=== PATIENT | male | born 1950 | race Caucasian/White ===

== ENCOUNTER 2021-12-06 10:47 | Inpatient (IN) ==
[2021-12-06] MEDS ORDERED: SODIUM CHLORIDE 0.9% 500 ML IV STA (11:32)
[2021-12-06] MEDS ORDERED: ONDANSETRON INJ 2 MG/ML 2 ML VIAL IV STA (11:32)
[2021-12-06] MEDS ORDERED: MoRPHine SULFATE 4 MG/ML 1 ML CARP\\VIAL IV STA (11:32)
--- NOTE | 2021-12-06 12:18 | Emergency Department Note ---
Impression & Plan Irene-prosthetic fracture around prosthetic hip, Post-operative pain ED Provider Note NAME: BUTCH HOOK AGE: 70 SEX: M : 1950 ARRIVES VIA: Walk-In INFORMANT: Patient, ED PROVIDER(S): Bimal Holley DO CHIEF COMPLAINT: Hip pain HPI: The patient is a 70-year-old male who presented to the emergency department for an evaluation of hip pain. The patient states that he had recent hip surgery with Dr. Eldridge. The patient had a hip replacement. He started noticing that he was having severe pain with any movement of the left hip over the last few days. He was seen by the primary orthopedic surgeon and was placed on steroids. He denies having any trauma. He denies having any fever or swelling in the leg. He notices the pain mostly in the posterior aspect of his left buttocks. He called the orthopedic surgeon today and was instructed to go to the emergency department for a CT. The patient denies having any back pain. The patient denies having any abdominal pain. The patient denies having any worsening swelling in the legs or redness. ROS: See above HPI for pertinent positives & negatives. A total of 10 systems reviewed and were otherwise negative. PAST MEDICAL HISTORY: See Below PAST SURGICAL HISTORY: See Below FAMILY HISTORY: See Below SOCIAL HISTORY: See Below HOME MEDICATIONS: See Below ALLERGIES: See Below VITALS: See Below PHYSICAL EXAMINATION: GENERAL: Patient is awake alert in no acute distress patient is resting comfortably and showing no signs of anxiety EYES: The conjunctivae are clear. The pupils are round and reactive. EARS, NOSE, MOUTH AND THROAT: The nose is without any evidence of any deformity. Mucous membranes are moist. Tongue is midline. NECK: The neck is nontender and supple. RESPIRATORY: Normal respiratory effort is noted there is no evidence of wheezing rhonchi or rales CARDIOVASCULAR: Regular rate and rhythm noted there no murmurs rubs or gallops normal S1 normal S2. GASTROINTESTINAL: The abdomen is soft. Abdomen is nontender. BACK: No midline tenderness or or step-off noted range of motion in flexion extension as well as rotation no signs of muscle spasm noted MUSCULOSKELETAL/EXTREMITIES: The patient is able to rotate the left hip inside and outside. There is no significant pain with this. He does have pain with flexion of the hip. He also has pain with palpation over the left sciatic notch. SKIN: Pedal edema was noted bilaterally. There was no erythema in the left leg. Pulses are symmetric in both feet. NEUROLOGIC: Patient is awake alert and oriented x3 MEDICAL DECISION MAKING: The patient is a 70-year-old male who presented to the emergency department for an evaluation of hip pain. The patient started noticing hip pain postoperatively. He was seen at the office and referred to the emergency department for further evaluation. I discussed the patient's laboratory and radiographic studies with him. He was evaluated in the emergency department by his primary orthopedic surgeon. He was found to have a periprosthetic fracture which was likely the cause of his pain. I do not feel this represents an underlying infection. He was felt to be a good candidate for inpatient and was admitted by his primary orthopedic physician. Triage Nursing notes reviewed. Prior medical records reviewed Vital Signs: reviewed and remarkable for no significant abnormalities Differential diagnosis: Fracture, subluxation, dislocation, contusion, ligamentous injury, neuro vascular, compartment syndrome, rhabdomyolysis, as well as other pathologies. ER treatment provided: See below Diagnostics interpreted by me: ECG: none Cardiac Monitoring: An order was placed for continuous cardiac monitoring. The monitor shows a rate of 70 bpm with sinus rhythm. Laboratory studies: As stated above and show below. Imaging studies: See below Consultation(s): I discussed this case with Dr. Eldridge who is the patient's primary orthopedic physician. 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, thoracic aorta"- follows only with PCP Surgical History History of back surgery LUMBAR DISCECTOMY "NOT A FUSION" History of total hip arthroplasty RT>PT STATED WAS DONE UNDER GENERAL>ANESTHESIA COULD NOT DO SPINAL "TRIED 4 OR 5 TIMES" Hx of carpal tunnel repair RT/LEFT Hx of colonoscopy Hx of knee surgery Meniscus sx Hx of shoulder surgery RT/LEFT Hx of total shoulder replacement RT Hx of umbilical hernia repair Nausea and vomiting after administration of anesthetic agent Remote hx>WITH BACK SURGERY Family History Other No family history of adverse response to anesthesia Social History Smoking Status: Former smoker Tobacco Type: Cigars Second Hand Exposure: No; Hx Alcohol Use: No Hx Substance Use: No Preferred Language: Taiwanese Communication Ability: Effective Script Manager Required: No Beliefs That Will Affect Care: None Current Living Situation: Spouse Other Information That Helps Us Care for You: No Feels Safe at Home: Yes Safety Concerns: Feels Safe At This Time Assistive Devices: Walker Allergies Allergies Allergy/AdvReac Type Severity Reaction Status Date / Time No Known Allergies Allergy Verified 12/06/21 14:59 Home Meds Home Medications Medication Instructions Recorded Confirmed cholecalciferol (vitamin D3) 50 50 mcg PO QAM 06/27/21 12/06/21 mcg (2,000 unit) capsule diltiazem HCl 360 mg 360 mg PO QPM 06/27/21 12/06/21 capsule,extended release 24 hr multivit with min-folic 1 tab PO QAM 06/27/21 12/06/21 acid-lutein 400 mcg-250 mcg chewable tablet (Centrum Silver) sildenafil 100 mg tablet 100 mg PO DAILY PRN impotence 06/27/21 12/06/21 valsartan 160 1 tab PO QAM 06/27/21 12/06/21 mg-hydrochlorothiazide 25 mg tablet clobetasol 0.05 % scalp solution 1 applic topical Q7D PRN psoriasis 09/14/21 12/06/21 clobetasol 0.05 % shampoo (Clobex) 1 applic topical QAM PRN psoriasis 09/14/21 12/06/21 vitamin B complex 1 tab PO QAM 09/14/21 12/06/21 wheat dextrin 3 gram/3.5 gram oral 1 packet PO QAM 09/14/21 12/06/21 powder packet (Benefiber Clear Sugar Free(dextrin)) Previous Rx's Medication Instructions Recorded aspirin 81 mg tablet,delayed 81 mg PO BID #84 tabs 11/15/21 release oxycodone-acetaminophen 5 mg-325 1 tab PO Q6H PRN pain #30 tabs 11/15/21 mg tablet (Percocet) methylprednisolone 4 mg tablets in 4 mg PO UD #1 packet 12/04/21 a dose pack Results & Data (ED) Vital Signs Vital Signs - 24 hr 12/06/21 10:51 12/06/21 14:36 Temperature 36.2 C L Temperature Source Temporal Artery Scan Pulse Rate 78 Pulse Rate [Left] 90 Pulse Rhythm [Left] Regular Pulse Strength [Left] Normal Respiratory Rate 20 19 Respiratory Effort / Characteristics Non-Labored Non-Labored Respiratory Depth Normal Normal Respiratory Pattern Regular Regular Blood Pressure 125/80 Blood Pressure [Left Arm] 136/98 Blood Pressure Mean 95 Blood Pressure Mean [Left Arm] 110 Blood Pressure Position [Left Arm] Lying Pulse Oximetry 96 98 Oxygen Delivery Method Room Air Room Air Sepsis Recent Fever Within 48 Hours No Sepsis New/Unexplained Change in Mental Status N/A Sepsis Action Taken by Nursing No Action Required Home Medications Current Medication List: was personally reviewed by me Laboratory Data Attestation: I reviewed the patient's lab results. Result diagrams: 12/06/21 12:08 12/06/21 12:08 Lab Results 12/06/21 12/06/21 12/06/21 Range/Units 12:08 12:08 12:08 WBC 13.51 H (4.8-10.8) K/ul RBC 4.70 (4.63-6.08) M/uL Hgb 14.3 (14.0-18.0) g/dl Hct 41.5 (40.1-51.0) % MCV 88.3 (80.0-100.0) fL MCH 30.4 (25.0-34.0) pg MCHC 34.5 (32.0-36.0) g/dL RDW Std Deviation 42.5 (36.4-46.3) fL RDW Coeff of Marquise 13.2 (11.5-14.5) % Plt Count 378 (130-400) K/uL MPV 9.3 L (9.4-12.4) fL Immature Gran % (Auto) 0.5 % Neut % (Auto) 88.8 % Lymph % (Auto) 6.5 % Tyler % (Auto) 4.1 % Eos % (Auto) 0.0 % Baso % (Auto) 0.1 % Neut # (Auto) 11.99 H (1.4-6.5) K/uL Lymph # (Auto) 0.88 L (1.2-3.4) K/uL Tyler # (Auto) 0.55 (0.24-0.82) K/uL Eos # (Auto) 0.00 (0-0.50) K/uL Baso # (Auto) 0.02 (0-0.2) K/uL Immature Gran # (Auto) 0.07 H (0.00-0.02) K/uL ESR 23 H (0-20) mm/hr PT 11.7 (9.0-12.0) Seconds INR 1.1 (0.9-1.1) APTT 27.1 (21.0-31.0) Seconds PTT Ratio 1.0 Sodium (136-145) mmol/L Potassium (3.5-5.1) mmol/L Chloride (98-107) mmol/L Carbon Dioxide (21-32) mmol/L Anion Gap (3-11) BUN (6-23) mg/dl Creatinine (0.6-1.4) mg/dl Est Cr Clr Drug Dosing Est GFR ( Amer) ml/min Est GFR (Non-Af Amer) ml/min BUN/Creatinine Ratio (10-20) Glucose (70-99(Fasting)) mg/dl Lactate (0.4-2.0) mmol/L Calcium (8.5-10.1) mg/dl Total Bilirubin (0.2-1.0) mg/dl AST (13-39) U/L ALT (7-52) U/L Alkaline Phosphatase (34-104) U/L C-Reactive Protein (0-0.5) mg/dl Total Protein (6.0-8.3) gm/dl Albumin (3.4-5.0) gm/dl Globulin (2.5-4.0) gm/dl Albumin/Globulin Ratio (0.9-2) Lipase (11-82) U/L Procalcitonin (0-0.5) ng/ml SARS-CoV-2, RNA, NAAT (NEGATIVE) 12/06/21 12/06/21 12/06/21 Range/Units 12:08 12:08 12:37 WBC (4.8-10.8) K/ul RBC (4.63-6.08) M/uL Hgb (14.0-18.0) g/dl Hct (40.1-51.0) % MCV (80.0-100.0) fL MCH (25.0-34.0) pg MCHC (32.0-36.0) g/dL RDW Std Deviation (36.4-46.3) fL RDW Coeff of Marquise (11.5-14.5) % Plt Count (130-400) K/uL MPV (9.4-12.4) fL Immature Gran % (Auto) % Neut % (Auto) % Lymph % (Auto) % Tyler % (Auto) % Eos % (Auto) % Baso % (Auto) % Neut # (Auto) (1.4-6.5) K/uL Lymph # (Auto) (1.2-3.4) K/uL Tyler # (Auto) (0.24-0.82) K/uL Eos # (Auto) (0-0.50) K/uL Baso # (Auto) (0-0.2) K/uL Immature Gran # (Auto) (0.00-0.02) K/uL ESR (0-20) mm/hr PT (9.0-12.0) Seconds INR (0.9-1.1) APTT (21.0-31.0) Seconds PTT Ratio Sodium 137 (136-145) mmol/L Potassium 4.0 (3.5-5.1) mmol/L Chloride 100 (98-107) mmol/L Carbon Dioxide 27 (21-32) mmol/L Anion Gap 10 (3-11) BUN 34 H (6-23) mg/dl Creatinine 1.27 (0.6-1.4) mg/dl Est Cr Clr Drug Dosing Not Reportable Est GFR ( Amer) 65.9 ml/min Est GFR (Non-Af Amer) 56.9 ml/min BUN/Creatinine Ratio 26.8 H (10-20) Glucose 109 H (70-99(Fasting)) mg/dl Lactate 1.4 (0.4-2.0) mmol/L Calcium 9.7 (8.5-10.1) mg/dl Total Bilirubin 1.1 H (0.2-1.0) mg/dl AST 13 (13-39) U/L ALT 13 (7-52) U/L Alkaline Phosphatase 119 H (34-104) U/L C-Reactive Protein 0.75 H (0-0.5) mg/dl Total Protein 7.1 (6.0-8.3) gm/dl Albumin 4.2 (3.4-5.0) gm/dl Globulin 2.9 (2.5-4.0) gm/dl Albumin/Globulin Ratio 1.4 (0.9-2) Lipase 8 L (11-82) U/L Procalcitonin < 0.05 (0-0.5) ng/ml SARS-CoV-2, RNA, NAAT (NEGATIVE) 12/06/21 Range/Units 14:31 WBC (4.8-10.8) K/ul RBC (4.63-6.08) M/uL Hgb (14.0-18.0) g/dl Hct (40.1-51.0) % MCV (80.0-100.0) fL MCH (25.0-34.0) pg MCHC (32.0-36.0) g/dL RDW Std Deviation (36.4-46.3) fL RDW Coeff of Marquise (11.5-14.5) % Plt Count (130-400) K/uL MPV (9.4-12.4) fL Immature Gran % (Auto) % Neut % (Auto) % Lymph % (Auto) % Tyler % (Auto) % Eos % (Auto) % Baso % (Auto) % Neut # (Auto) (1.4-6.5) K/uL Lymph # (Auto) (1.2-3.4) K/uL Tyler # (Auto) (0.24-0.82) K/uL Eos # (Auto) (0-0.50) K/uL Baso # (Auto) (0-0.2) K/uL Immature Gran # (Auto) (0.00-0.02) K/uL ESR (0-20) mm/hr PT (9.0-12.0) Seconds INR (0.9-1.1) APTT (21.0-31.0) Seconds PTT Ratio Sodium (136-145) mmol/L Potassium (3.5-5.1) mmol/L Chloride (98-107) mmol/L Carbon Dioxide (21-32) mmol/L Anion Gap (3-11) BUN (6-23) mg/dl Creatinine (0.6-1.4) mg/dl Est Cr Clr Drug Dosing Est GFR ( Amer) ml/min Est GFR (Non-Af Amer) ml/min BUN/Creatinine Ratio (10-20) Glucose (70-99(Fasting)) mg/dl Lactate (0.4-2.0) mmol/L Calcium (8.5-10.1) mg/dl Total Bilirubin (0.2-1.0) mg/dl AST (13-39) U/L ALT (7-52) U/L Alkaline Phosphatase (34-104) U/L C-Reactive Protein (0-0.5) mg/dl Total Protein (6.0-8.3) gm/dl Albumin (3.4-5.0) gm/dl Globulin (2.5-4.0) gm/dl Albumin/Globulin Ratio (0.9-2) Lipase (11-82) U/L Procalcitonin (0-0.5) ng/ml SARS-CoV-2, RNA, NAAT NEGATIVE (NEGATIVE) Administered Medications Hydromorphone HCl (Hydromorphone Inj 1 Mg/Ml Syringe) 1 mg IV Q6H PRN PRN Reason: Pain Stop: 12/20/21 16:15 Last Admin: 12/06/21 16:30 Dose: 1 mg Documented By: [id number] Sodium Chloride (Nss 1000ml) 1,000 mls @ 80 mls/hr IV .[id number] Stop: 01/05/22 16:15 Last Admin: 12/06/21 16:52 Dose: 80 mls/hr Documented By: [id number] Discontinued Medications Sodium Chloride (Nss) 500 mls @ 999 mls/hr IV .Q31M STA Stop: 12/06/21 12:02 Last Infusion: 12/06/21 14:14 Dose: 0 mls/hr Documented By: Admin: 12/06/21 12:03 Dose: 999 mls/hr Documented By: NH Ioversol (Ioversol 350 Mg 100ml Prefilled Syringe) 95 ml IV ONCE ONE Stop: 12/06/21 14:11 Last Admin: 12/06/21 14:10 Dose: 95 ml Documented By: [email or web address] Morphine Sulfate (Morphine Sulfate 4 Mg/Ml 1 Ml Carp\\Vial) 4 mg IV NOW STA Stop: 12/06/21 11:33 Last Admin: 12/06/21 12:05 Dose: 4 mg Documented By: AUBREE Ondansetron HCl (Ondansetron Inj 2 Mg/Ml 2 Ml Vial) 4 mg IV NOW STA Stop: 12/06/21 11:33 Last Admin: 12/06/21 12:05 Dose: 4 mg Documented By: AUBREE Imaging Data Radiologist's Impression: Hip CT 12/06/21 11:32 CT hip LT wo/w con CLINICAL HISTORY: Severe left hip pain. Recent left hip arthroplasty. COMPARISON STUDY: Left hip radiographs November 16, 2021. TECHNIQUE: Axial images of the left hip were obtained before and after i ntravenous administration of 95 cc of Optiray 320 IV. Sagittal and coronal reconstructions were viewed. Automated exposure control was utilized for the study. A dose lowering technique was utilized adhering to the principles of ALARA. FINDINGS: Left hip arthroplasty is noted. Note is made of an acute nondisplaced periprosthetic fracture which involves the posterior wall of the left acetabulum. In addition, there is an acute comminuted nondisplaced periprosthetic fracture adjacent to the femoral component of the left hip arthroplasty. This extends through the greater and lesser trochanters. Fracture extends into the subtrochanteric portion of the left femur. There is no unexpected radiopaque foreign bodies. Skin thickening and subcutaneous fluid/stranding are expected in the early postoperative setting. A 5.3 x 5.2 cm operative bed fluid collection contains a hematocrit level. This suggests a resolving hematoma. No additional fluid collections are identified. IMPRESSION: 1. Status post total left hip arthroplasty. Nondisplaced periprosthetic fracture of the posterior wall of the left acetabulum and nondisplaced periprosthetic fracture adjacent to the femoral component, as described above. 2. 5.3 x 5.2 cm operative bed fluid collection which favors a resolving hematoma. ACT 112: Negative or not required by law. Electronically signed by: Abdi Lopez M.D. 12/06/2021 3:00 PM Discharge Plan Visit Data Chief Complaint: Hip Pain Stated Complaint: SURGERY 11/16, PAIN IN L HIP ED Provider: Bimal Holley Discharge Problem: Irene-prosthetic fracture around prosthetic hip, Post-operative pain Patient Disposition: Admitted As Inpatient Discharge Instructions Interventions: ED Discharge Assessment Last Done: 12/06/21 16:13 : Irene-prosthetic fracture around prosthetic hip Qualifiers: Encounter type: initial encounter Qualified Code(s): M97.8XXA - Periprosthetic fracture around other internal prosthetic joint, initial encounter
[2021-12-06 12:25] LABS: Basophils # (auto) 0.02 K/uL (0-0.2); Basophils % (auto) 0.1 %; Hematocrit (blood only) 41.5 % (40.1-51.0); Hemoglobin 14.3 g/dl (14.0-18.0); Immature Granulocytes # (auto) 0.07 K/uL (0.00-0.02); Immature Granulocytes % (auto) 0.5 %; Lymphocytes # (auto) 0.88 K/uL (1.2-3.4); Lymphocytes % (auto) 6.5 %; Mean Corpuscular Hemoglobin 30.4 pg (25.0-34.0); Mean Corpuscular Hgb Conc 34.5 g/dL (32.0-36.0); Mean Corpuscular Volume 88.3 fL (80.0-100.0); Mean Platelet Volume 9.3 fL (9.4-12.4); Monocytes # (auto) 0.55 K/uL (0.24-0.82); Monocytes % (auto) 4.1 %; Neutrophils # (auto) 11.99 K/uL (1.4-6.5); Neutrophils % (auto) 88.8 %; Platelet Count 378 K/uL (130-400); RDW Coefficient of Variation 13.2 % (11.5-14.5); RDW Standard Deviation 42.5 fL (36.4-46.3); White Blood Count 13.51 K/ul (4.8-10.8)
[2021-12-06 12:49] LABS: INR 1.1 (0.9-1.1); Partial Thromboplastin Time 27.1 Seconds (21.0-31.0); Prothrombin Time 11.7 Seconds (9.0-12.0)
[2021-12-06 12:56] LABS: Alanine Aminotransferase 13 U/L (7-52); Albumin Globulin Ratio 1.4 (0.9-2); Albumin Level 4.2 gm/dl (3.4-5.0); Alkaline Phosphatase 119 U/L (34-104); Anion Gap 10 (3-11); Aspartate Aminotransferase 13 U/L (13-39); BUN Creatinine Ratio 26.8 (10-20); Bilirubin,Total 1.1 mg/dl (0.2-1.0); Blood Urea Nitrogen 34 mg/dl (6-23); C Reactive Protein 0.75 mg/dl (0-0.5); Calcium 9.7 mg/dl (8.5-10.1); Carbon Dioxide 27 mmol/L (21-32); Chloride 100 mmol/L (98-107); Est GFR (African American) 65.9 ml/min; Est GFR (Non-African American) 56.9 ml/min; Globulin 2.9 gm/dl (2.5-4.0); Glucose 109 mg/dl (70-99(Fasting)); Lipase 8 U/L (11-82); Sodium 137 mmol/L (136-145); Total Protein 7.1 gm/dl (6.0-8.3)
[2021-12-06] MEDS ORDERED: IOVERSOL 350 MG 100mL Prefilled Syringe IV ONE (14:10)
--- NOTE | 2021-12-06 15:00 | History & Physical Report ---
Date of Service December 06, 2021 Assessment & Plan (1) Periprosthetic hip fracture: I discussed the diagnosis and treatment options with him and his at bedside. I recommended take him to the operating room for cable fixation and stem exchange of the left hip. He and his understand the risk, benefits, and alternatives procedure elected to proceed. Questions were answered at bedside. The decision was made for surgery. We will admit him to my service overnight. He will be n.p.o. past midnight tonight and I plan on doing the procedure tomorrow afternoon. History of Present Illness Chief Complaint: Left periprosthetic hip fracture. Primary Care Provider: Brigette North PA-C Jong is a pleasant 70-year-old male who underwent a left hip replacement 3 weeks ago. He did great for a week and a half. He was having no pain. He then rolled over awkwardly in bed and began having significant left hip pain. He came to our office. X-rays did not show too much. The stent may have subsided just a little bit. He was continued to have a lot of hip pain. He came to the emergency room and CT scan showed a small crack near the lesser trochanter. He was still having a lot of hip pain. I spoke with him and his at bedside and I recommended admission to the hospital for operative fixation and stent exchange of the left periprosthetic fracture.. Allergies Allergy/AdvReac Type Severity Reaction Status Date / Time No Known Allergies Allergy Verified 12/06/21 14:59 Home Medications Medication Instructions Recorded Confirmed Type cholecalciferol (vitamin D3) 50 50 mcg PO QAM 06/27/21 11/16/21 History mcg (2,000 unit) capsule diltiazem HCl 360 mg 360 mg PO QPM 06/27/21 11/16/21 History capsule,extended release 24 hr multivit with min-folic 1 tab PO QAM 06/27/21 11/16/21 History acid-lutein 400 mcg-250 mcg chewable tablet (Centrum Silver) sildenafil 100 mg tablet 100 mg PO DAILY PRN impotence 06/27/21 11/16/21 History valsartan 160 1 tab PO QAM 06/27/21 11/16/21 History mg-hydrochlorothiazide 25 mg tablet clobetasol 0.05 % scalp solution 1 applic topical Q7D PRN psoriasis 09/14/21 11/12/21 History clobetasol 0.05 % shampoo (Clobex) 1 applic topical QAM PRN psoriasis 09/14/21 11/12/21 History vitamin B complex 1 tab PO QAM 09/14/21 11/16/21 History wheat dextrin 3 gram/3.5 gram oral 1 packet PO QAM 09/14/21 11/16/21 History powder packet (Benefiber Clear Sugar Free(dextrin)) aspirin 81 mg tablet,delayed 81 mg PO BID #84 tabs 11/15/21 Rx release celecoxib 200 mg capsule (Celebrex) 200 mg PO BID #28 caps 11/15/21 Rx oxycodone-acetaminophen 5 mg-325 1 tab PO Q6H PRN pain #30 tabs 11/15/21 Rx mg tablet (Percocet) oxycodone-acetaminophen 5 mg-325 1 tab PO Q6H PRN pain #30 tabs 11/27/21 Rx mg tablet (Percocet) methylprednisolone 4 mg tablets in 4 mg PO UD #1 packet 12/04/21 12/04/21 Rx a dose pack 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, thoracic aorta"- follows only with PCP Surgical History History of back surgery LUMBAR DISCECTOMY "NOT A FUSION" History of total hip arthroplasty RT>PT STATED WAS DONE UNDER GENERAL>ANESTHESIA COULD NOT DO SPINAL "TRIED 4 OR 5 TIMES" Hx of carpal tunnel repair RT/LEFT Hx of colonoscopy Hx of knee surgery Meniscus sx Hx of shoulder surgery RT/LEFT Hx of total shoulder replacement RT Hx of umbilical hernia repair Nausea and vomiting after administration of anesthetic agent Remote hx>WITH BACK SURGERY Family History Other No family history of adverse response to anesthesia Social History Smoking Status: Former smoker Tobacco Type: Cigars Second Hand Exposure: No; Hx Alcohol Use: No Hx Substance Use: No Preferred Language: Namibian Communication Ability: Effective Turbine Engineer Required: No Beliefs That Will Affect Care: None Current Living Situation: Spouse Feels Safe at Home: Yes Assistive Devices: CPAP and Glasses Review of Systems All systems reviewed & are unremarkable except as noted in HPI & below. Physical Exam On physical examination of his left hip, he is very comfortable in a wheelchair. He does not want to get up to a bed. He has pain with logroll of his left hip.. Constitutional WD/WN, vitals as above Eyes PERRL, conjunctivae normal, anicteric sclerae ENMT external ear and nose normal, oropharynx normal Neck trachea midline, no thyromegaly Respiratory normal respiratory effort, lungs clear to auscultation Cardiovascular RRR, no murmur, no edema Gastrointestinal (Abdomen) normal bowel sounds, soft, nontender, no hepatosplenomegaly Skin no rashes, warm and dry Psychiatric A+Ox3, euthymic affect Results & Data Results & Data Laboratory Results . Diagnostic Findings CT scan of the left hip shows a periprosthetic proximal femur fracture. There is a small crack in the proximal femur near the lesser trochanter which some subsidence of the femoral prosthesis. The also a small crack at the greater trochanter and a periacetabular stress fracture.. PG Care Time/CCT Total # of Minutes Spent Total Time Spent with Patient: Total time spent is greater than 50% in coordination of care (as documented) at patient's floor/unit and/or counseling patient: Coding Level of Care Code 92679 Initial Inpt Care Lvl 2 (57 - DECISION FOR SURGERY) Diagnoses Periprosthetic hip fracture M97.8XXA; Z96.649
--- NOTE | 2021-12-06 15:01 | CT Scan Report ---
CT hip LT wo/w con CLINICAL HISTORY: Severe left hip pain. Recent left hip arthroplasty. COMPARISON STUDY: Left hip radiographs November 16, 2021. TECHNIQUE: Axial images of the left hip were obtained before and after intravenous administration of 95 cc of Optiray 320 IV. Sagittal and coronal reconstructions were viewed. Automated exposure control was utilized for the study. A dose lowering technique was utilized adhering to the principles of AL BRANDON. FINDINGS: Left hip arthroplasty is noted. Note is made of an acute nondisplaced periprosthetic fractu re which involves the posterior wall of the left acetabulum. In addition, there is an acute comminute d nondisplaced periprosthetic fracture adjacent to the femoral component of the left hip arthroplasty . This extends through the greater and lesser trochanters. Fracture extends into the subtrochanteric portion of the left femur. There is no unexpected radiopaque foreign bodies. Skin thickening and subc utaneous fluid/stranding are expected in the early postoperative setting. A 5.3 x 5.2 cm operative be d fluid collection contains a hematocrit level. This suggests a resolving hematoma. No additional flu id collections are identified. IMPRESSION: 1. Status post total left hip arthroplasty. Nondisplaced periprosthetic fracture of the posterior wal l of the left acetabulum and nondisplaced periprosthetic fracture adjacent to the femoral component, as described above. 2. 5.3 x 5.2 cm operative bed fluid collection which favors a resolving hematoma. ACT 112: Negative or not required by law. Electronically signed by: Abdi Lopez M.D. 12/06/2021 3:00 PM
[2021-12-06] MEDS ORDERED: ONDANSETRON INJ 2 MG/ML 2 ML VIAL IV PRN (16:16)
[2021-12-06] MEDS: HYDROmorphone INJ 1 MG/ML SYRINGE IV PRN ×2 (16:30→22:37)
[2021-12-06] MEDS ORDERED: INFLUENZA VACCINE HIGH DOSE PF 65+ 0.7 ML SYR IM ONE (16:40)
[2021-12-06] MEDS: SODIUM CHLORIDE 0.9% 1000ML 1,000 ML IV SCH (16:52)
[2021-12-06] MEDS: dilTIAZem ER 180 MG CAPCR PO SCH (20:02)
--- NOTE | 2021-12-06 20:29 | Anesthesiology Consultation ---
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 Surgery Operation Date: 12/07/21 07:55 Proposed Procedures p Cable and Stem Exchange, Left Hip Anterior Approach - Mynor Eldridge, Height/Weight Height: 5 ft 9 in Weight: 113.39 kg Allergies Allergy/AdvReac Type Severity Reaction Status Date / Time No Known Allergies Allergy Verified 12/06/21 14:59 Medications Home Medications Medication Instructions Recorded Confirmed Last Taken cholecalciferol (vitamin D3) 50 50 mcg PO QAM 06/27/21 12/06/21 12/06/21 mcg (2,000 unit) capsule diltiazem HCl 360 mg 360 mg PO QPM 06/27/21 12/06/21 12/05/21 capsule,extended release 24 hr multivit with min-folic 1 tab PO QAM 06/27/21 12/06/21 12/06/21 acid-lutein 400 mcg-250 mcg chewable tablet (Centrum Silver) sildenafil 100 mg tablet 100 mg PO DAILY PRN impotence 06/27/21 12/06/21 11/02/21 valsartan 160 1 tab PO QAM 06/27/21 12/06/21 12/06/21 mg-hydrochlorothiazide 25 mg tablet clobetasol 0.05 % scalp solution 1 applic topical Q7D PRN psoriasis 09/14/21 12/06/21 Unknown clobetasol 0.05 % shampoo (Clobex) 1 applic topical QAM PRN psoriasis 09/14/21 12/06/21 Unknown vitamin B complex 1 tab PO QAM 09/14/21 12/06/21 12/06/21 wheat dextrin 3 gram/3.5 gram oral 1 packet PO QAM 09/14/21 12/06/21 12/06/21 powder packet (Benefiber Clear Sugar Free(dextrin)) aspirin 81 mg tablet,delayed 81 mg PO BID #84 tabs 11/15/21 12/06/21 12/06/21 08:00 release oxycodone-acetaminophen 5 mg-325 1 tab PO Q6H PRN pain #30 tabs 11/15/21 12/06/21 Unknown mg tablet (Percocet) methylprednisolone 4 mg tablets in 4 mg PO UD #1 packet 12/04/21 12/06/21 12/06/21 a dose pack Active Medications Generic Name Dose Route Start Last Admin Trade Name Freq PRN Reason Stop Dose Admin Diltiazem HCl 360 mg 12/06/21 21:00 12/06/21 20:02 Diltiazem Er 180 Mg Capcr PO 01/05/22 20:59 360 mg QPM ZAMZAM Administration Hydromorphone HCl 1 mg 12/06/21 16:16 12/06/21 16:30 Hydromorphone Inj 1 Mg/Ml Syringe IV 12/20/21 16:15 1 mg Q6H PRN Administration Pain Sodium Chloride 1,000 mls @ 80 mls/hr 12/06/21 16:16 12/06/21 16:52 Nss 1000ml IV 01/05/22 16:15 80 mls/hr .[id number] Administration Past Medical History Medical History History of hemangioma Liver, stable x years- follows with PCP- no further imaging follow up needed due to stability per patient Hx of prostatic malignancy 11/2012 - S/p XRT No current issues Hx of psoriasis Hypertension Sleep apnea CPAP 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 "Mild, thoracic aorta"- follows only with PCP Past Family History Family History Other No family history of adverse response to anesthesia Past Surgical History Surgical History History of back surgery LUMBAR DISCECTOMY "NOT A FUSION" History of total hip arthroplasty RT>PT STATED WAS DONE UNDER GENERAL>ANESTHESIA COULD NOT DO SPINAL "TRIED 4 OR 5 TIMES" Hx of carpal tunnel repair RT/LEFT Hx of colonoscopy Hx of knee surgery Meniscus sx Hx of shoulder surgery RT/LEFT Hx of total shoulder replacement RT Hx of umbilical hernia repair Nausea and vomiting after administration of anesthetic agent Remote hx>WITH BACK SURGERY Social History Smoking Status: Former smoker tobacco type: cigars Hx Alcohol Use: No Hx Substance Use: No substance use type: does not use Physical Exam Vital Signs Last Vital Signs Temp 98.2 F 12/06/21 16:53 Pulse 70 12/06/21 16:53 Resp 18 12/06/21 16:53 BP 126/73 12/06/21 16:53 Pulse Ox 98 12/06/21 16:53 O2 Del Method 12/06/21 16:53 Testing Laboratory Results 12/06/21 12:08 12/06/21 12:08 PT 11.7 Seconds (9.0-12.0) 12/06/21 12:08 INR 1.1 (0.9-1.1) 12/06/21 12:08 APTT 27.1 Seconds (21.0-31.0) 12/06/21 12:08 Electrocardiogram Date: 09/26/21 Sinus rhythm with 1st degree A-V block, rate 65 bpm Left axis deviation Low voltage QRS Abnormal ECG No previous ECGs available Confirmed by Farhan Handley ([id number]) on 09/26/2021 11:04:12 AM Chest X-Ray Date: 09/26/21 Findings: + NAD
[2021-12-07] MEDS: SODIUM CHLORIDE 0.9% 1000ML 1,000 ML IV SCH ×3 (04:54→17:47)
--- NOTE | 2021-12-07 13:17 | History & Physical Bridge Note ---
Date of Service December 07, 2021 History & Physical Bridge Note I have examined the patient, reviewed the History & Physical and in the interval since the performance of the History & Physical I have noted the following changes of clinical significance: no changes noted
[2021-12-07] MEDS ORDERED: ONDANSETRON INJ 2 MG/ML 2 ML VIAL IV PRN (13:49)
[2021-12-07] MEDS ORDERED: ATROPINE SULFATE 0.1 MG/ML 10ML SYR IV PRN (13:49)
[2021-12-07] MEDS ORDERED: ePHEDrine sulfate 50 MG/ML AMP IV PRN (13:49)
[2021-12-07] MEDS ORDERED: fentaNYL citrate 100 MCG/2 ML VIAL IV PRN (13:49)
[2021-12-07] MEDS ORDERED: BUPIVACAINE 0.5 % 5 MG/1 ML PF 10ML VIAL ONE (14:04)
[2021-12-07] MEDS ORDERED: PROPOFOL IV EMULSION 10 MG/ML 20 ML VIAL IV ONE ×3 (14:06→15:55)
[2021-12-07] MEDS ORDERED: fentaNYL citrate 100 MCG/2 ML VIAL ONE (14:06)
[2021-12-07] MEDS ORDERED: MIDAZOLAM HCL 1 MG/ML 2ML VIAL ONE (14:06)
[2021-12-07] MEDS ORDERED: LIDOCAINE 2% MPF LOCAL 5 ML VIAL INFIL ONE (14:06)
[2021-12-07] MEDS: ceFAZolin 2000MG 2,000 MG/15 ML SYR IV SCH ×2 (14:23→22:46)
[2021-12-07] MEDS ORDERED: PHENYLEPHRINE HCL 10 MG/ML VIAL ONE (14:59)
[2021-12-07] MEDS ORDERED: ePHEDrine sulfate 50 MG/ML AMP ONE (14:59)
[2021-12-07] MEDS ORDERED: ONDANSETRON INJ 2 MG/ML 2 ML VIAL ONE (15:55)
--- NOTE | 2021-12-07 16:33 | Operative Report ---
PG Post Operative Report Pre & Post Diagnosis Operation Date: 12/07/21 07:55 Pre-Op Diagnosis: Periprosthetic left hip fracture. Post-Op Diagnosis: Periprosthetic left hip fracture. I identified the patient and participated in the time-out.: Yes Procedure Operation Date: 12/07/21 07:55 Actual Procedures p open reduction internal fixation left periprosthetic hip fracture with single component stem exchange (Left) - Mynor Eldridge DO Surgeon Mynor Eldridge DO Drying Machine Tender Mynor Rojas PA-C Estimated Blood Loss 200 Findings Consistent with Post-Op Diagnosis Specimens None Description of Procedure On December 07, 2021 Jong was brought down from his hospital room to the preoperative holding area. The operative extremity identified and signed. He was given a preoperative antibiotic. He was taken back the operating room and given a spinal anesthetic. He was then placed onto the operating table. The left hip was brought out to traction on a Purist leg positioner. The left hip was then prepped and draped in sterile fashion. A timeout was done. The patient and the operative extremity was properly identified. The previous anterior incision was opened back up. Dissection was taken down through the fascia and a large seroma was evacuated. The rectus was retracted anteriorly and the tensor was retracted laterally. The sutures from the previous capsular repair were removed and the femoral head was exposed. The entire wound was irrigated with normal saline solution. A single cable was placed just inferior to the lesser trochanter. This was to ensure there was no further propagation of the fracture. There was a single minimally displaced fracture on the anterior lateral cortex just lateral to the lesser trochanter. Once the hip was cabled, the hip was dislocated. The femoral head and femoral stem were removed. Sequential broaching of a Harman Biomet Advocate stem was done up to a size 14. A 40 mm head with a +3.5 neck was then trialed. The hip was then reduced. Fluoroscopic images showed anatomic alignment of the prosthesis. Everything felt stable. The hip was then dislocated. The broach was then removed. The final Harman Biomet size 13 Advocate stem was then cemented in place with Biomet cement. Once cement had hardened a 40 mm head with a +3.5 neck was then impacted into place. The hip was then reduced. Final fluoroscopic images showed anatomic reduction of the fracture. The wound was then irrigated. The acetabulum was then stressed and there was no motion of the acetabulum. The acetabulum seems stable. The capsule was then closed with #1 Vicryl suture. The fascia was closed with PDS suture. Skin was closed with 2-0 Vicryl and pinky. He was placed in a Silverlon dressing. He was then transferred to a hospital bed and taken to the postanesthesia care unit in stable condition. He tolerated the procedure well. Mynor Rojas PA-C, was present for the entire procedure. He was critical for patient positioning, prepping, draping, retraction exposure, wound closure and application of sterile dressing. I attest to the content of the Intraoperative Record and any orders documented therein. Any exceptions are noted below.
--- NOTE | 2021-12-07 16:39 | Fluoroscopy Report ---
FL hip LT 1V CLINICAL HISTORY: LT ANTERIOR HIP REVISION TECHNIQUE: 3 views were obtained with the C-arm in the OR with the above procedure. Total fluoroscopy time was 5 seconds. Comparison: None available at the time of this dictation. FINDINGS/IMPRESSION: Intraoperative images were obtained of left hip arthroplasty revision. Please correlate with intraoperative fluoroscopy and operative report. ACT 112: Negative or not required by law. Electronically signed by: Daniel Rucker M.D. 12/07/2021 4:37 PM
--- NOTE | 2021-12-07 17:12 | Anesthesiology Progress Note ---
Date of Service December 07, 2021 Anesthesia Post Procedure Vital Signs Vital Signs: Temp Pulse Resp BP Pulse Ox Pulse Ox O2 Del Method 12/07/21 17:00 59 L 18 116/69 94 Oxymask 12/07/21 16:50 63 15 116/77 97 Oxymask 12/07/21 16:43 36.7 C 66 20 110/76 96 Oxymask 12/07/21 12:32 37.3 C 65 18 111/70 97 Room Air 12/07/21 07:35 37.1 C 65 17 112/65 96 Room Air 12/06/21 22:17 36.5 C 74 18 134/74 95 Room Air 12/06/21 20:02 98 12/06/21 20:02 Room Air O2 Del Method O2 Flow Rate 12/07/21 17:00 2 12/07/21 16:50 3 12/07/21 16:43 5 12/07/21 12:32 12/07/21 07:35 12/06/21 22:17 12/06/21 20:02 Room Air 12/06/21 20:02 Pain Intensity Left Hip: Pain Intensity: 0 Transfer of Care Handoff Completed per policy Notes Mental Status: alert / awake / arousable and participated in evaluation Patient Amnestic to Procedure: Yes Nausea / Vomiting: adequately controlled Pain: adequately controlled Airway Patency, RR, SpO2: stable & adequate BP & HR: stable & adequate Hydration State: stable & adequate Anesthetic Complications: no major complications apparent and Pt Satisfied with anesthetic care
--- NOTE | 2021-12-07 17:16 | XRay Report ---
XR hip 1V LT w pelvis CLINICAL HISTORY: IN PACU - Post Surgical COMPARISON STUDY: Left hip CT 12/06/2021. FINDINGS: There are bilateral total hip arthroplasties again noted. Interval placement of a cerclage wire within the proximal left femur. The hardware appears intact. The nondisplaced femoral periprosth etic fracture is better appreciated on the prior CT examination. Left hip skin pinky are again note d. No dislocation. The left greater trochanter fracture is again noted. Nondisplaced left acetabular periprosthetic fracture, unchanged. IMPRESSION: Interval placement of a cerclage wire within the proximal left femur which appears intac t. The left hip periprosthetic fractures are better appreciated on the prior CT examination. ACT 112: Negative or not required by law. Electronically signed by: Jalen Singh M.D. 12/07/2021 5:14 PM
[2021-12-07] MEDS ORDERED: MAGNESIUM HYDROXIDE SUSP 30 ML UDC PO PRN (17:27)
[2021-12-07] MEDS ORDERED: bisacodyL 10 MG SUPP PR PRN (17:27)
[2021-12-07] MEDS ORDERED: METOCLOPRAMIDE HCL INJ 5 MG/ML 2 ML VIAL IV PRN (17:27)
[2021-12-07] MEDS ORDERED: NALOXONE HCL 0.4 MG/1 ML VIAL/CARP IV PRN (17:27)
[2021-12-07] MEDS: hydroCHLOROthiazide 25 MG TAB PO SCH (17:37)
[2021-12-07] MEDS: VALSARTAN/HCTZ 160/12.5MG TAB PO SCH (17:37)
[2021-12-07] MEDS: KETOROLAC TROMETHAMINE 15 MG/ML VIAL IV SCH ×2 (17:47→22:56)
[2021-12-07] MEDS: DOCUSATE SODIUM 100 MG CAP PO SCH (20:47)
[2021-12-07] MEDS: SENNA 8.6 MG TAB PO SCH (20:47)
[2021-12-07] MEDS: dilTIAZem ER 180 MG CAPCR PO SCH (20:47)
[2021-12-07] MEDS: HYDROmorphone INJ 1 MG/ML SYRINGE IV PRN (22:46)
[2021-12-08] MEDS: SODIUM CHLORIDE 0.9% 1000ML 1,000 ML IV SCH ×3 (05:28→17:36)
[2021-12-08] MEDS: ceFAZolin 2000MG 2,000 MG/15 ML SYR IV SCH ×2 (06:21→06:22)
[2021-12-08] MEDS: KETOROLAC TROMETHAMINE 15 MG/ML VIAL IV SCH ×3 (06:22→17:36)
[2021-12-08] MEDS: oxyCODONE/ACETAMINOPHEN 5mg/325mg TAB PO PRN (08:41)
[2021-12-08] MEDS: MULTIVITAMIN TAB PO SCH (08:41)
[2021-12-08] MEDS: ASPIRIN 81 MG ECTAB PO SCH ×2 (08:41→20:57)
[2021-12-08] MEDS: DOCUSATE SODIUM 100 MG CAP PO SCH ×2 (08:41→20:57)
[2021-12-08] MEDS: hydroCHLOROthiazide 25 MG TAB PO SCH (08:42)
[2021-12-08] MEDS: VALSARTAN/HCTZ 160/12.5MG TAB PO SCH (08:43)
--- NOTE | 2021-12-08 09:54 | Orthopedic Progress Note ---
Date of Service December 08, 2021 Assessment & Plan (1) Irene-prosthetic fracture around prosthetic hip: Overall he is doing very well. He is not having much pain in the left hip. He will be seen by physical therapy today for ambulation and range of motion exercises. He is on aspirin for DVT prophylaxis. He can be discharged home later today. He will follow with orthopedics in 2 weeks. Stephania Sunshine was seen and examined at bedside this morning. Overall is doing fairly well. All of his preoperative pain is gone. He says he feels like he is back to where he was after he originally had the hip replaced. He was a little nauseous last night. He is feeling better now. He has no other complaints.. Review of Systems All systems reviewed & are unremarkable except as noted in HPI & below. Physical Exam On physical examination of the left hip, the dressing is clean and dry. His leg is out full extension. He is active dorsiflexion and plantarflexion of the left ankle.. Results & Data Results & Data Laboratory Results . Diagnostic Findings Postoperative x-rays of the left hip show the prosthesis to be in anatomic alignment without any evidence of fracture, desiccation, or loosening. PG Care Time/CCT Total # of Minutes Spent Total Time Spent with Patient: Total time spent is greater than 50% in coordination of care (as documented) at patient's floor/unit and/or counseling patient: Coding Level of Care Code 61425 Post Operative Follow-Up Diagnoses Irene-prosthetic fracture around prosthetic hip M97.8XXA; Z96.649 Encounter type: initial encounter (1) Irene-prosthetic fracture around prosthetic hip Encounter type: initial encounter Qualified Code(s): M97.8XXA - Periprosthetic fracture around other internal prosthetic joint, initial encounter; Z96.649 - Presence of unspecified artificial hip joint
--- NOTE | 2021-12-08 09:56 | Discharge Summary ---
Date of Service December 08, 2021 Admission HPI (Per Admitting) Jong is a pleasant 70-year-old male who underwent a left hip replacement 3 weeks ago. He did great for a week and a half. He was having no pain. He then rolled over awkwardly in bed and began having significant left hip pain. He came to our office. X-rays did not show too much. The stent may have subsided just a little bit. He was continued to have a lot of hip pain. He came to the emergency room and CT scan showed a small crack near the lesser trochanter. He was still having a lot of hip pain. I spoke with him and his at bedside and I recommended admission to the hospital for operative fixation and stent exchange of the left periprosthetic fracture.. Admission Exam (Per Admitting) On physical examination of his left hip, he is very comfortable in a wheelchair. He does not want to get up to a bed. He has pain with logroll of his left hip.. Principal Diagnosis Same as "Discharge Diagnosis" noted below under Discharge Instructions. Discharge Exam On physical examination of the left hip, the dressing is clean and dry. His leg is out full extension. He is active dorsiflexion and plantarflexion of the left ankle.. Discharge Data Consultations 12/06/21 14:32 Consult Orthopedic Surgery Stat Procedures Performed Operation Date: 12/07/21 07:55 Actual Procedures p Cable and Stem Exchange, Left Hip Anterior Approach(Left) - Mynor Eldridge DO Ordered Studies 12/06/21 11:32 CT hip LT wo/w con Stat 12/07/21 15:30 FL hip LT 1V Routine Hospital Course (1) Irene-prosthetic fracture around prosthetic hip: On December 06, 2021 Jong arrived at [facility] with complaints of severe left hip pain about 3 weeks out from a hip replacement surgery. CT scan showed a periprosthetic fracture around the proximal femur with some subsidence of the stem. He was admitted to the orthopedic service for operative fixation. The following day, he was taken to the operating room and underwent operative fixation of the left periprosthetic femur fracture with stem exchange. There were no complications. Postoperatively he was started on Ancef and transferred to the general orthopedic floors. He was given aspirin for DVT prophylaxis. His hospital course was uneventful. On postop day #1, his vital signs were stable and his pain was well controlled. He was able to participate well with physical therapy doing ambulation and range of motion exercises. He was then discharged home. He will follow-up with orthopedics in 2 weeks. Encounter type: initial encounter Qualified Code(s): M97.8XXA - Periprosthetic fracture around other internal prosthetic joint, initial encounter; Z96.649 - Presence of unspecified artificial hip joint PG Care Time/CCT Total # of Minutes Spent Total Time Spent with Patient: Total time spent is greater than 50% in coordination of care (as documented) at patient's floor/unit and/or counseling patient: Discharge Plan Discharge Items Patient Disposition: Home - Home Health Services Reason For Visit: PERIPROSTHETIC HIP FRACTURE Discharge Diagnosis: Fixation of the left hip Activity: Per Instructions section Non-emergency contact: Surgeon Call non-emergency contact if: your wound has increased redness and your wound has increased drainage Follow-up/Referrals: Brigette North PA-C [Primary Care Provider] - Diet: Regular Addtl Attending Provider Instructions: Activity and Therapy Recommendations: * If you are using [facility] then therapy will be provided at your home until they feel you have accomplished all of your goals. * If you are using [facility] then Physical Therapy will be provided until they feel you are ready to start Outpatient Physical Therapy. * If you are not using home therapy then Outpatient Physical Therapy should start about 3-5 days from your day of surgery. Therapy will last about 6-10 weeks * You were shown a series of exercises in the hospital. Do these exercises three times each day including the exercises you were shown in physical therapy. * Get up and walk several times each day.~ For the first four weeks, try not to stand or walk for more than one hour at a time. If you do stand or walk for more than one hour, you will not hurt anything, but your leg will likely swell.~~ * As you feel comfortable, you may change from the walker or crutches to a cane and~then to independent walking. Medications: * Narcotic You will likely be sent home from the hospital with a prescription for the narcotic pain medication that worked best throughout your stay. * Aspirin Most patients will be required to take Aspirin 81mg twice a day for 6 weeks after surgery. This is obtained [id number] and a prescription is not necessary. * Other medications may be prescribed for specific circumstances. If you have any questions, please call the office at . * Resume previous home medications unless otherwise instructed TEDs/Elastic Stockings: The white elastic stockings help limit swelling and prevent blood clots from forming in your legs. The more you wear them, the more they work. Wear them for six weeks. Dressing Care: Leave the Silverlon dressing in place for 7 days. After 7 days you may remove the dressing. If the incision is not draining then you may leave the pinky open to air. If there is a little bit of drainage or if the pinky are getting stuck on your clothing then cover the incision with a dry dressing. The pinky will be removed at your 2 week follow-up appointment. Showering: You may shower with the Silverlon dressing in place. Do not let the shower spray hit the dressing directly. Pat the Silverlon dressing dry. If the dressing becomes wet underneath, then simply remove the dressing. Keep the incision dry until you are 7 days out from the day of surgery. After 7 days you may remove the Silverlon dressing and shower with the pinky exposed. Let soapy water run over the pinky and pat them dry. Do not scrub or soak the incision. Things To Watch For: * Drainage from the incision site that occurs more than one week after your surgery. * Increased redness at the incision site. * Fever above 102 degrees Fahrenheit. * Unusual chest pain or shortness of breath. * Call [facility] at with any of the above problems Follow-Up Visit: Follow-up with Dr. Eldridge's PA (Mynor Rojas) 2-3 weeks after your day of surgery. He will remove your pinky and answer any questions. If you have any additional questions or concerns, Dr Eldridge is usually in the office at the same time and will be available An appointment was probably scheduled when you signed-up for surgery in the office. If you have any questions call Office Instructions: More detailed instructions as well as Frequently Asked Questions were provided in a folder by our office when you signed-up for surgery. Please review these instructions when you get home. If you have any further questions or concerns, please feel free to call the office at [phone] Pending Studies at Discharge: No Stand-Alone Forms: My [facility], Smoking Cessation Medications and DC Order Prescriptions: New hydromorphone [Dilaudid] 4 mg tablet 4 mg PO Q4H PRN (Reason: pain) Qty: 30 0RF celecoxib [Celebrex] 200 mg capsule 200 mg PO BID Qty: 28 0RF Rx Instructions: Take 1 pill twice a day for 2 weeks after surgery Continued aspirin 81 mg tablet,delayed release (DR/EC) 81 mg PO BID Qty: 84 0RF diltiazem HCl 360 mg capsule,extended release 24hr 360 mg PO QPM valsartan-hydrochlorothiazide 160-25 mg tablet 1 tab PO QAM cholecalciferol (vitamin D3) 50 mcg (2,000 unit) capsule 50 mcg PO QAM Centrum Silver 400-250 mcg tablet,chewable 1 tab PO QAM sildenafil 100 mg tablet 100 mg PO DAILY PRN (Reason: impotence) Rx Instructions: administer 30 minutes to 4 hours before activity methylprednisolone 4 mg tablets,dose pack 4 mg PO UD Qty: 1 0RF Rx Instructions: STARTED 12/04/21 Use as directed vitamin B complex Tablet 1 tab PO QAM clobetasol 0.05 % Solution 1 applic TOPICAL Q7D PRN (Reason: psoriasis) clobetasol [Clobex] 0.05 % Shampoo 1 applic TOPICAL QAM PRN (Reason: psoriasis) Benefiber Clear SF (dextrin) 3 gram/3.5 gram Powder In Packet 1 packet PO QAM Rx Instructions: mix into at least 4 oz water or juice before administering Discontinued oxycodone-acetaminophen [Percocet] 5-325 mg tablet 1 tab PO Q6H PRN (Reason: pain) Qty: 30 0RF Discharge Orders: Discharge Order (Routine); Ordered 12/08/21 Ordered By: Mynor Eldridge Admission Data Admit Date/Time: 12/06/21 15:05 Attending Provider: Mynor Eldridge Admit Provider: Mynor Eldridge Primary Care Provider: Brigette North Other Providers: Mynor Eldridge
[2021-12-08 14:50] LABS: Hematocrit (blood only) 32.1 % (40.1-51.0); Hemoglobin 10.9 g/dl (14.0-18.0)
[2021-12-08] MEDS: SENNA 8.6 MG TAB PO SCH (20:56)
[2021-12-08] MEDS: dilTIAZem ER 180 MG CAPCR PO SCH (20:57)
[2021-12-08] MEDS: HYDROmorphone INJ 1 MG/ML SYRINGE IV PRN (21:09)
[2021-12-09] MEDS: KETOROLAC TROMETHAMINE 15 MG/ML VIAL IV SCH ×2 (01:09→05:40)
[2021-12-09] MEDS: ceFAZolin 2000MG 2,000 MG/15 ML SYR IV SCH (01:39)
[2021-12-09] MEDS: SODIUM CHLORIDE 0.9% 1000ML 1,000 ML IV SCH (05:40)
[2021-12-09] MEDS: ASPIRIN 81 MG ECTAB PO SCH (08:30)
[2021-12-09] MEDS: DOCUSATE SODIUM 100 MG CAP PO SCH (08:30)
[2021-12-09] MEDS: MULTIVITAMIN TAB PO SCH (08:31)
[2021-12-09] MEDS: hydroCHLOROthiazide 25 MG TAB PO SCH (08:31)
[2021-12-09] MEDS: VALSARTAN/HCTZ 160/12.5MG TAB PO SCH (08:31)
--- NOTE | 2021-12-09 08:55 | Orthopedic Progress Note ---
Date of Service December 09, 2021 Assessment & Plan (1) Irene-prosthetic fracture around prosthetic hip: Overall he is doing very well with regards to his left hip. He will be seen by physical therapy today for ambulation and range of motion exercises. His blood pressure looks better today. He had an H&H drawn yesterday which was in acceptable limits. He is currently on aspirin for DVT prophylaxis. If he does well today with physical therapy, he can be discharged home. He will follow-up orthopedics in 2 weeks. Stephania Lopez was seen and examined at bedside this morning. Overall he says he is feeling better. He had some difficulty yesterday with physical therapy and hypotension. He is not having too much pain in his left hip. He would like to be discharged home today.. Review of Systems All systems reviewed & are unremarkable except as noted in HPI & below. Physical Exam On physical examination of the left hip, the dressing is clean and dry. His leg is out full tension.. Results & Data Results & Data Laboratory Results . Diagnostic Findings . PG Care Time/CCT Total # of Minutes Spent Total Time Spent with Patient: Total time spent is greater than 50% in coordination of care (as documented) at patient's floor/unit and/or counseling patient: Coding Level of Care Code 77017 Post Operative Follow-Up Diagnoses Irene-prosthetic fracture around prosthetic hip M97.8XXA; Z96.649 Encounter type: initial encounter (1) Irene-prosthetic fracture around prosthetic hip Encounter type: initial encounter Qualified Code(s): M97.8XXA - Periprosthetic fracture around other internal prosthetic joint, initial encounter; Z96.649 - Presence of unspecified artificial hip joint
[2021-12-09] MEDS: oxyCODONE/ACETAMINOPHEN 5mg/325mg TAB PO PRN (09:05)
== END 2021-12-09 13:30 | disposition home health service (06) | DRG 466 ==
LOC: ED 10:47 → 3W 15:05

== ENCOUNTER 2022-02-03 00:54 | Inpatient (IN) ==
[2022-02-03] MEDS ORDERED: FUROSEMIDE 40 MG/4 ML VIAL IV ONE ×2 (01:21→01:50)
--- NOTE | 2022-02-03 01:24 | Emergency Department Note ---
History of Present Illness General Chief complaint: Respiratory Problems Stated complaint: HARD TIME BREATHING Time Seen by Provider: 02/03/22 00:58 History of Present Illness Maximum Pain Intensity: 0 71-year-old male presents emergency department with a 1 day history of shortness of breath, dyspnea on exertion, orthopnea. Patient denies cough cold congestion symptoms. Patient denies fever. Patient states that his symptoms have worsened in the past 24 hours. Patient denies a history of CHF. There are no other mitigating or alleviating factors. Home Medications Medication Instructions Recorded Confirmed Type cholecalciferol (vitamin D3) 50 50 mcg PO QAM 06/27/21 02/03/22 History mcg (2,000 unit) capsule diltiazem HCl 360 mg 360 mg PO QPM 06/27/21 02/03/22 History capsule,extended release 24 hr multivit with min-folic 1 tab PO QAM 06/27/21 02/03/22 History acid-lutein 400 mcg-250 mcg chewable tablet (Centrum Silver) sildenafil 100 mg tablet 100 mg PO DAILY PRN impotence 06/27/21 02/03/22 History clobetasol 0.05 % scalp solution 1 applic topical Q7D PRN psoriasis 09/14/21 02/03/22 History clobetasol 0.05 % shampoo (Clobex) 1 applic topical QAM PRN psoriasis 09/14/21 02/03/22 History wheat dextrin 3 gram/3.5 gram oral 1 packet PO QAM 09/14/21 02/03/22 History powder packet (Benefiber Clear Sugar Free(dextrin)) pantoprazole 40 mg tablet,delayed 40 mg PO BID #180 tabs 01/23/22 02/03/22 Rx release amoxicillin 500 mg tablet 2,000 mg PO DIRECTED PRN 1 HR 02/03/22 02/03/22 History PRIOR TO DENTAL APPT. valsartan 160 1 tab PO DAILY 02/03/22 02/03/22 History mg-hydrochlorothiazide 25 mg tablet vitamin B complex 1 tab PO DAILY 02/03/22 02/03/22 History Allergies Allergy/AdvReac Type Severity Reaction Status Date / Time No Known Allergies Allergy Verified 02/03/22 01:42 Past Med/Surg History Medical History History of COVID-19 11/19/21 (+) home test and follow with PCP and was on meds only had fever and not feeling well. 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, thoracic aorta"- follows only with PCP Surgical History History of back surgery LUMBAR DISCECTOMY "NOT A FUSION" History of total hip arthroplasty RT>PT STATED WAS DONE UNDER GENERAL>ANESTHESIA COULD NOT DO SPINAL "TRIED 4 OR 5 TIMES" Left hip replaced 11/16/21 and then needed repair on 12/07/21 Hx of carpal tunnel repair RT/LEFT Hx of colonoscopy Hx of knee surgery Meniscus sx Hx of shoulder surgery RT/LEFT Hx of total shoulder replacement RT Hx of umbilical hernia repair Nausea and vomiting after administration of anesthetic agent Remote hx>WITH BACK SURGERY Family History Other No family history of adverse response to anesthesia Social History Smoking Status: Never smoker Tobacco Type: Cigars Second Hand Exposure: No; Hx Alcohol Use: No Hx Substance Use: No Preferred Language: Mongolian Communication Ability: Effective Fitter Type Bar And Segment Required: No Beliefs That Will Affect Care: None marital status: Current Living Situation: Spouse Feels Safe at Home: Yes Assistive Devices: Walker Physical Exam Vital Signs Vital Signs - 24 hr 02/03/22 00:57 02/03/22 01:11 02/03/22 01:45 Temperature 37.1 C Temperature Source Temporal Artery Scan Pulse Rate 88 Pulse Rate [Apical] 76 Pulse Rhythm Regular Pulse Strength Normal Respiratory Rate 28 H 38 H Respiratory Effort / Characteristics Short of Breath Spontaneous Respiratory Depth Normal Respiratory Pattern Regular Tachypnea Blood Pressure 144/86 H Blood Pressure [Left Arm] 136/82 Blood Pressure Mean 105 Blood Pressure Mean [Left Arm] 100 Blood Pressure Position Sitting Pulse Oximetry 92 88 L 92 Oxygen Delivery Method Room Air Room Air Nasal Cannula Oxygen Flow Rate 2 Sepsis Recent Fever Within 48 Hours No Sepsis New/Unexplained Change in Mental Status No Sepsis Action Taken by Nursing No Action Required Oxygen Flow Rate - Titration 2 Pulse Oximetry Post Tiitration 94 GENERAL: Patient is awake alert in no acute distress patient is resting comfortably and showing no signs of anxiety EYES: The conjunctivae are clear. The pupils are round and reactive. EARS, NOSE, MOUTH AND THROAT: The nose is without any evidence of any deformity. Mucous membranes are moist. Tongue is midline. NECK: The neck is nontender and supple. RESPIRATORY: Normal respiratory effort is noted ; crackles bilaterally CARDIOVASCULAR: Regular rate and rhythm noted there no murmurs rubs or gallops normal S1 normal S2. GASTROINTESTINAL: The abdomen is soft. Abdomen is nontender. PELVIS: The Pelvis is stable. No tenderness to palpation is noted. BACK: No midline tenderness or or step-off noted range of motion in flexion extension as well as rotation no signs of muscle spasm noted MUSCULOSKELETAL/EXTREMITIES: There is no evidence of gross deformity full range of motion is noted in the hips and shoulders. Bilateral lower extremity pitting edema SKIN: There is no obvious evidence of any rash. There are no petechiae, pallor or cyanosis noted. NEUROLOGIC: Patient is awake alert and oriented x3 strength is symmetric Course Reevaluation(s) Reevaluation #1: Patient was started on oxygen, patient was given IV Lasix, patient remained in stable condition. Patient was also COVID-positive. Patient will require admission for CHF and COVID. Time: 02:40 [facility] Time: 02:40 Administered Medications Discontinued Medications Furosemide (Furosemide 40 Mg/4 Ml Vial) 40 mg IV ONE ONE Stop: 02/03/22 01:22 Last Admin: 02/03/22 01:40 Dose: 40 mg Documented By: MED Furosemide (Furosemide 40 Mg/4 Ml Vial) 40 mg IV ONE ONE Stop: 02/03/22 01:51 Last Admin: 02/03/22 01:57 Dose: 40 mg Documented By: MED Critical Care Time Critical Care Time: Yes Total Critical Care Time: 35 I have personally spent greater than 35 minutes of critical care time in the direct management of this patient. This includes bedside care, interpretation of diagnostic studies, and testing, discussion with consultants, patient, and family members, and other required patient management activities. These minutes are in excess of all separately billable procedures. Medical Decision Making Medical Records Attestation: I reviewed the patient's medical records. Home Medications Current Medication List: was personally reviewed by me Laboratory Data Attestation: I reviewed the patient's lab results. Result diagrams: 02/03/22 01:35 02/03/22 01:35 Lab Results 02/03/22 02/03/22 02/03/22 Range/Units 01:16 01:35 01:35 WBC 8.88 (4.8-10.8) K/ul RBC 4.04 L (4.63-6.08) M/uL Hgb 11.9 L (14.0-18.0) g/dl Hct 36.0 L (40.1-51.0) % MCV 89.1 (80.0-100.0) fL MCH 29.5 (25.0-34.0) pg MCHC 33.1 (32.0-36.0) g/dL RDW Std Deviation 43.3 (36.4-46.3) fL RDW Coeff of Marquise 13.2 (11.5-14.5) % Plt Count 278 (130-400) K/uL MPV 9.6 (9.4-12.4) fL Immature Gran % (Auto) 0.3 % Neut % (Auto) 79.0 % Lymph % (Auto) 12.5 % [place] % (Auto) 7.0 % Eos % (Auto) 0.9 % Baso % (Auto) 0.3 % Neut # (Auto) 7.01 H (1.4-6.5) K/uL Lymph # (Auto) 1.11 L (1.2-3.4) K/uL [place] # (Auto) 0.62 (0.24-0.82) K/uL Eos # (Auto) 0.08 (0-0.50) K/uL Baso # (Auto) 0.03 (0-0.2) K/uL Immature Gran # (Auto) 0.03 H (0.00-0.02) K/uL PT (9.0-12.0) Seconds INR (0.9-1.1) APTT (21.0-31.0) Seconds PTT Ratio Sodium 140 (136-145) mmol/L Potassium 3.6 (3.5-5.1) mmol/L Chloride 105 (98-107) mmol/L Carbon Dioxide 25 (21-32) mmol/L Anion Gap 10 (3-11) BUN 15 (6-23) mg/dl Creatinine 1.08 (0.6-1.4) mg/dl Est Cr Clr Drug Dosing 76.8 ml/min Est GFR ( Amer) 79.6 ml/min Est GFR (Non-Af Amer) 68.7 ml/min BUN/Creatinine Ratio 13.9 (10-20) Glucose 107 H (70-99(Fasting)) mg/dl Calcium 9.1 (8.5-10.1) mg/dl Magnesium 1.9 (1.7-2.4) mg/dl Total Bilirubin 1.1 H (0.2-1.0) mg/dl AST 16 (13-39) U/L ALT 17 (7-52) U/L Alkaline Phosphatase 86 (34-104) U/L Troponin I High Sens 79.6 H* (0-20) pg/ml B-Natriuretic Peptide (0-100) pg/ml Total Protein 6.5 (6.0-8.3) gm/dl Albumin 4.1 (3.4-5.0) gm/dl Globulin 2.4 L (2.5-4.0) gm/dl Albumin/Globulin Ratio 1.7 (0.9-2) SARS-CoV-2 (PCR) POSITIVE A* (Negative) 02/03/22 02/03/22 Range/Units 01:35 01:35 WBC (4.8-10.8) K/ul RBC (4.63-6.08) M/uL Hgb (14.0-18.0) g/dl Hct (40.1-51.0) % MCV (80.0-100.0) fL MCH (25.0-34.0) pg MCHC (32.0-36.0) g/dL RDW Std Deviation (36.4-46.3) fL RDW Coeff of Marquise (11.5-14.5) % Plt Count (130-400) K/uL MPV (9.4-12.4) fL Immature Gran % (Auto) % Neut % (Auto) % Lymph % (Auto) % [place] % (Auto) % Eos % (Auto) % Baso % (Auto) % Neut # (Auto) (1.4-6.5) K/uL Lymph # (Auto) (1.2-3.4) K/uL [place] # (Auto) (0.24-0.82) K/uL Eos # (Auto) (0-0.50) K/uL Baso # (Auto) (0-0.2) K/uL Immature Gran # (Auto) (0.00-0.02) K/uL PT 12.2 H (9.0-12.0) Seconds INR 1.2 H (0.9-1.1) APTT 29.0 (21.0-31.0) Seconds PTT Ratio 1.1 Sodium (136-145) mmol/L Potassium (3.5-5.1) mmol/L Chloride (98-107) mmol/L Carbon Dioxide (21-32) mmol/L Anion Gap (3-11) BUN (6-23) mg/dl Creatinine (0.6-1.4) mg/dl Est Cr Clr Drug Dosing ml/min Est GFR ( Amer) ml/min Est GFR (Non-Af Amer) ml/min BUN/Creatinine Ratio (10-20) Glucose (70-99(Fasting)) mg/dl Calcium (8.5-10.1) mg/dl Magnesium (1.7-2.4) mg/dl Total Bilirubin (0.2-1.0) mg/dl AST (13-39) U/L ALT (7-52) U/L Alkaline Phosphatase (34-104) U/L Troponin I High Sens (0-20) pg/ml B-Natriuretic Peptide 315 H (0-100) pg/ml Total Protein (6.0-8.3) gm/dl Albumin (3.4-5.0) gm/dl Globulin (2.5-4.0) gm/dl Albumin/Globulin Ratio (0.9-2) SARS-CoV-2 (PCR) (Negative) Imaging Data Attestation: I personally reviewed and interpreted this imaging study as follows: My Impression: Chest x-ray interpreted by me positive for CHF ECG Data Attestation: I personally reviewed and interpreted this ECG as follows: Additional Comments: EKG interpreted by me normal sinus rhythm rate of 82 first-degree AV block no obvious ST segment elevation or depression normal axis MDM Narrative Medical decision making differential diagnosis includes CHF, COPD, pneumonia, viral illness, cardiac event, cardiac dysrhythmia, anemia. Plan is to check labs, cardiac evaluation, monitor, start oxygen. Patient was evaluated for shortness of breath has an elevated BNP, chest x-ray that revealed CHF, mildly elevated troponin, patient is also COVID-positive. Patient will require admission for further evaluation of CHF and COVID with hypoxia. Patient was given IV diuretic and aspirin in the emergency department Impression & Plan Congestive heart failure, Elevated troponin, COVID-19 Discharge Plan Visit Data Chief Complaint: Respiratory Problems Stated Complaint: HARD TIME BREATHING ED Provider: Ari Rees Discharge Problem: Congestive heart failure, Elevated troponin, COVID-19 Patient Disposition: Being Evaluated by Hospitalist Forms Stand Alone Forms: [facility] Prescriptions Prescriptions: No Action pantoprazole 40 mg tablet,delayed release (DR/EC) 40 mg PO BID Qty: 180 0RF diltiazem HCl 360 mg capsule,extended release 24hr 360 mg PO QPM cholecalciferol (vitamin D3) 50 mcg (2,000 unit) capsule 50 mcg PO QAM Centrum Silver 400-250 mcg tablet,chewable 1 tab PO QAM sildenafil 100 mg tablet 100 mg PO DAILY PRN (Reason: impotence) Rx Instructions: administer 30 minutes to 4 hours before activity clobetasol 0.05 % Solution 1 applic TOPICAL Q7D PRN (Reason: psoriasis) clobetasol [Clobex] 0.05 % Shampoo 1 applic TOPICAL QAM PRN (Reason: psoriasis) Benefiber Clear SF (dextrin) 3 gram/3.5 gram Powder In Packet 1 packet PO QAM Rx Instructions: mix into at least 4 oz water or juice before administering vitamin B complex [Super B Complex] Tablet 1 tab PO DAILY valsartan-hydrochlorothiazide 160-25 mg tablet 1 tab PO DAILY amoxicillin 500 mg tablet 2,000 mg PO DIRECTED PRN (Reason: 1 HR PRIOR TO DENTAL APPT.) Rx Instructions: 4 tabs 1 hour prior to procedure Referrals Referrals: Brigette North PA-C [Primary Care Provider] -
[2022-02-03 01:56] LABS: Basophils # (auto) 0.03 K/uL (0-0.2); Basophils % (auto) 0.3 %; Eosinophils # (auto) 0.08 K/uL (0-0.50); Eosinophils % (auto) 0.9 %; Hemoglobin 11.9 g/dl (14.0-18.0); Immature Granulocytes # (auto) 0.03 K/uL (0.00-0.02); Immature Granulocytes % (auto) 0.3 %; Lymphocytes # (auto) 1.11 K/uL (1.2-3.4); Lymphocytes % (auto) 12.5 %; Mean Corpuscular Hemoglobin 29.5 pg (25.0-34.0); Mean Corpuscular Hgb Conc 33.1 g/dL (32.0-36.0); Mean Corpuscular Volume 89.1 fL (80.0-100.0); Mean Platelet Volume 9.6 fL (9.4-12.4); Monocytes # (auto) 0.62 K/uL (0.24-0.82); Neutrophils # (auto) 7.01 K/uL (1.4-6.5); Platelet Count 278 K/uL (130-400); RDW Coefficient of Variation 13.2 % (11.5-14.5); RDW Standard Deviation 43.3 fL (36.4-46.3); Red Blood Count 4.04 M/uL (4.63-6.08); White Blood Count 8.88 K/ul (4.8-10.8)
[2022-02-03 02:08] LABS: INR 1.2 (0.9-1.1); Partial Thromboplastin Ratio 1.1; Prothrombin Time 12.2 Seconds (9.0-12.0)
[2022-02-03 02:23] LABS: Albumin Globulin Ratio 1.7 (0.9-2); Albumin Level 4.1 gm/dl (3.4-5.0); BUN Creatinine Ratio 13.9 (10-20); Bilirubin,Total 1.1 mg/dl (0.2-1.0); Calcium 9.1 mg/dl (8.5-10.1); Creatinine Clr Calc Pharmacy 76.8 ml/min; Est GFR (African American) 79.6 ml/min; Est GFR (Non-African American) 68.7 ml/min; Globulin 2.4 gm/dl (2.5-4.0); Magnesium 1.9 mg/dl (1.7-2.4); Potassium 3.6 mmol/L (3.5-5.1); Total Protein 6.5 gm/dl (6.0-8.3)
[2022-02-03 02:30] LABS: Troponin I High Sensitivity 79.6 pg/ml (0-20)
[2022-02-03] MEDS ORDERED: ASPIRIN CHEW 324 MG PO STA (02:31)
--- NOTE | 2022-02-03 03:06 | History & Physical Report ---
Date of Service February 03, 2022 Assessment & Plan (1) Acute respiratory failure with hypoxia: Plan: Acute respiratory failure with hypoxia/COVID-19 infection/congestive heart failure- (2) Congestive heart failure: Plan: Congestive heart failure/elevated troponin/hypertension- Continue diltiazem extended release 360 mg daily and valsartan/HCTZ daily Given furosemide 40 mg IV in ED, continue every morning The patient will be admitted to telemetry for serial cardiac enzymes, serial EKG's, cardiac rhythm monitoring and a 2-D echocardiogram with Dopplers. Follow serial BMP and magnesium levels (3) Elevated troponin: Plan: Troponin 79.6 upon admission (4) COVID-19: Plan: COVID-19 active infection- Dexamethasone 10 mg IV now, and 6 mg IV every morning Remdesivir IV per protocol Guaifenesin extended release 12 mg p.o. twice daily Albuterol HFA 2 puffs every 2 hours as needed Continue vitamin D 2000 units daily (5) Duodenal ulcer: Plan: Duodenal ulcer that was nonbleeding and erosive gastropathy which showed stigmata of bleeding on EGD on 12/20/2021- Continue pantoprazole 40 mg p.o. twice daily Hold aspirin (6) Erosive gastropathy: (7) Status post left hip replacement: Plan: Status post left hip replacement/periprosthetic hip fracture- Patient continues to report stiffness of joint PT OT as tolerated (8) Periprosthetic hip fracture: (9) Hypertension: (10) Sleep apnea: Plan: CPAP as needed at bedtime History of Present Illness Chief Complaint: The patient presents to the emergency department with complaint of 1 day of progressively rapidly worsening shortness of breath, dyspnea on exertion and orthopnea. He continues to also complain of left leg/hip stiffness status post surgery Primary Care Provider: Brigette North PA-C The patient is a 71-year-old male with a past medical history including hypertension, GERD, duodenal ulcer, erosive gastropathy, status post left hip meyer rgery on 11/16/21, and then revision on 12/07/21. He underwent an EGD on 12/20/2021 which showed an erosive gastropathy with stigmata of recent bleeding, and a nonbleeding duodenal ulcer with no stigmata of bleeding. He presented to the ED with the above rapidly progressive symptoms. Significant work-up in the emergency department include the following laboratories: Hemoglobin 11.9, hematocrit 36.0, INR 1.2, troponin 79.6, BNP 315. Patient was COVID-19 positive Chest x-ray showed congestive heart failure and interstitial infiltrates Pulse ox was 88% on room air, and improved to 94% with 3 L nasal cannula oxygen Patient was given furosemide 40 mg IV by the ED. I also started him on dexamethasone 10 mg IV, and remdesivir IV per protocol. Aspirin will be held due to recent abnormalities on EGD Allergies Allergy/AdvReac Type Severity Reaction Status Date / Time No Known Allergies Allergy Verified 02/03/22 01:42 Home Medications Medication Instructions Recorded Confirmed Type cholecalciferol (vitamin D3) 50 50 mcg PO QAM 06/27/21 02/03/22 History mcg (2,000 unit) capsule diltiazem HCl 360 mg 360 mg PO QPM 06/27/21 02/03/22 History capsule,extended release 24 hr multivit with min-folic 1 tab PO QAM 06/27/21 02/03/22 History acid-lutein 400 mcg-250 mcg chewable tablet (Centrum Silver) sildenafil 100 mg tablet 100 mg PO DAILY PRN impotence 06/27/21 02/03/22 History clobetasol 0.05 % scalp solution 1 applic topical Q7D PRN psoriasis 09/14/21 02/03/22 History clobetasol 0.05 % shampoo (Clobex) 1 applic topical QAM PRN psoriasis 09/14/21 02/03/22 History wheat dextrin 3 gram/3.5 gram oral 1 packet PO QAM 09/14/21 02/03/22 History powder packet (Benefiber Clear Sugar Free(dextrin)) pantoprazole 40 mg tablet,delayed 40 mg PO BID #180 tabs 01/23/22 02/03/22 Rx release amoxicillin 500 mg tablet 2,000 mg PO DIRECTED PRN 1 HR 02/03/22 02/03/22 History PRIOR TO DENTAL APPT. 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 "Mild, thoracic aorta"- follows only with PCP Surgical History History of back surgery LUMBAR DISCECTOMY "NOT A FUSION" History of total hip arthroplasty RT>PT STATED WAS DONE UNDER GENERAL>ANESTHESIA COULD NOT DO SPINAL "TRIED 4 OR 5 TIMES" Left hip replaced 11/16/21 and then needed repair on 12/07/21 Hx of carpal tunnel repair RT/LEFT Hx of colonoscopy Hx of knee surgery Meniscus sx Hx of shoulder surgery RT/LEFT Hx of total shoulder replacement RT Hx of umbilical hernia repair Nausea and vomiting after administration of anesthetic agent Remote hx>WITH BACK SURGERY Family History Other No family history of adverse response to anesthesia Social History Smoking Status: Never smoker Tobacco Type: Cigars Second Hand Exposure: No; Hx Alcohol Use: No Hx Substance Use: No Preferred Language: Romanian Communication Ability: Effective Reporting Coordinator Required: No Beliefs That Will Affect Care: None marital status: Current Living Situation: Spouse Feels Safe at Home: Yes Assistive Devices: Walker Review of Systems Review of Systems: The patient denies chest pain, palpitations, cough, sore throat, fevers, chills, sweats, weight change, fatigue, nausea, vomiting, diarrhea , constipation, abdominal pain, pelvic pain, blood in urine or stool, dysuria, urinary frequency or urgency, lightheadedness, dizziness, headache, memory loss, loss of consciousness, rash, abnormal bruising or bleeding, focal or generalized weakness, numbness or tingling in arms, generalized arthralgias or myalgias, back or neck pain, or night sweats. The review of systems is otherwise negative other than for that already noted above, and at least 10 systems have been reviewed. Physical Exam Physical Exam: The patient is awake, alert and oriented 3, well developed and well nourished, normocephalic and atraumatic, lying in bed and in no acute distress. HEENT--PERRL, EOMI, mucous membranes and oropharynx normal. Neck--supple. No JVD. No bruits. Thyroid normal, trachea midline, no adenopathy. Heart--normal S1 and S2. No murmurs, rubs or gallops. Lungs--coarse breath sounds bilaterally throughout Abdomen--normal bowel sounds and soft. Nontender. Nondistended. Obese Extremities--no cyanosis or clubbing. 1+ bilateral pretibial pitting edema, left greater than right. Intact left hip incision Dermatologic--normal skin turgor, normal color, no abnormal lymph nodes, no rash. Neurologic--cranial nerves II through XII grossly intact. Rheumatologic--limited exam Psychiatric--normal affect. Results & Data Results & Data ([facility]) Vital Signs (Past 12 Hours) Vital Signs Temp Pulse Pulse Resp BP BP Pulse Ox 02/03/22 01:45 76 38 H 136/82 92 02/03/22 01:11 88 L 02/03/22 00:57 37.1 C 88 28 H 144/86 H 92 O2 Del Method O2 Flow Rate 02/03/22 01:45 Nasal Cannula 2 02/03/22 01:11 Room Air 02/03/22 00:57 Room Air Laboratory Results Laboratory Results WBC 8.88 K/ul (4.8-10.8) 02/03/22 01:35 RBC 4.04 M/uL (4.63-6.08) L 02/03/22 01:35 Hgb 11.9 g/dl (14.0-18.0) L 02/03/22 01:35 Hct 36.0 % (40.1-51.0) L 02/03/22 01:35 MCV 89.1 fL (80.0-100.0) 02/03/22 01:35 MCH 29.5 pg (25.0-34.0) 02/03/22 01:35 MCHC 33.1 g/dL (32.0-36.0) 02/03/22 01:35 RDW Std Deviation 43.3 fL (36.4-46.3) 02/03/22 01:35 RDW Coeff of Marquise 13.2 % (11.5-14.5) 02/03/22 01:35 Plt Count 278 K/uL (130-400) 02/03/22 01:35 MPV 9.6 fL (9.4-12.4) 02/03/22 01:35 Immature Gran % (Auto) 0.3 % 02/03/22 01:35 Neut % (Auto) 79.0 % 02/03/22 01:35 Lymph % (Auto) 12.5 % 02/03/22 01:35 [place] % (Auto) 7.0 % 02/03/22 01:35 Eos % (Auto) 0.9 % 02/03/22 01:35 Baso % (Auto) 0.3 % 02/03/22 01:35 Neut # (Auto) 7.01 K/uL (1.4-6.5) H 02/03/22 01:35 Lymph # (Auto) 1.11 K/uL (1.2-3.4) L 02/03/22 01:35 [place] # (Auto) 0.62 K/uL (0.24-0.82) 02/03/22 01:35 Eos # (Auto) 0.08 K/uL (0-0.50) 02/03/22 01:35 Baso # (Auto) 0.03 K/uL (0-0.2) 02/03/22 01:35 Immature Gran # (Auto) 0.03 K/uL (0.00-0.02) H 02/03/22 01:35 PT 12.2 Seconds (9.0-12.0) H 02/03/22 01:35 INR 1.2 (0.9-1.1) H 02/03/22 01:35 APTT 29.0 Seconds (21.0-31.0) 02/03/22 01:35 PTT Ratio 1.1 02/03/22 01:35 Sodium 140 mmol/L (136-145) 02/03/22 01:35 Potassium 3.6 mmol/L (3.5-5.1) 02/03/22 01:35 Chloride 105 mmol/L (98-107) 02/03/22 01:35 Carbon Dioxide 25 mmol/L (21-32) 02/03/22 01:35 Anion Gap 10 (3-11) 02/03/22 01:35 BUN 15 mg/dl (6-23) 02/03/22 01:35 Creatinine 1.08 mg/dl (0.6-1.4) 02/03/22 01:35 Est Cr Clr Drug Dosing 76.8 ml/min 02/03/22 01:35 Est GFR ( Amer) 79.6 ml/min 02/03/22 01:35 Est GFR (Non-Af Amer) 68.7 ml/min 02/03/22 01:35 BUN/Creatinine Ratio 13.9 (10-20) 02/03/22 01:35 Glucose 107 mg/dl (70-99(Fasting)) H 02/03/22 01:35 Calcium 9.1 mg/dl (8.5-10.1) 02/03/22 01:35 Magnesium 1.9 mg/dl (1.7-2.4) 02/03/22 01:35 Total Bilirubin 1.1 mg/dl (0.2-1.0) H 02/03/22 01:35 AST 16 U/L (13-39) 02/03/22 01:35 ALT 17 U/L (7-52) 02/03/22 01:35 Alkaline Phosphatase 86 U/L (34-104) 02/03/22 01:35 Troponin I High Sens 79.6 pg/ml (0-20) H* 02/03/22 01:35 B-Natriuretic Peptide 315 pg/ml (0-100) H 02/03/22 01:35 Total Protein 6.5 gm/dl (6.0-8.3) 02/03/22 01:35 Albumin 4.1 gm/dl (3.4-5.0) 02/03/22 01:35 Globulin 2.4 gm/dl (2.5-4.0) L 02/03/22 01:35 Albumin/Globulin Ratio 1.7 (0.9-2) 02/03/22 01:35 SARS-CoV-2 (PCR) POSITIVE (Negative) A* 02/03/22 01:16 Code Status & VTE Plan Code Status Full code VTE Prophylaxis Plan VTE Prophylaxis will be ordered: Yes
--- NOTE | 2022-02-03 03:46 | Billing Data ---
Date of Service February 03, 2022 Coding Level of Care Code 23113 Initial Inpt Care Lvl 3
[2022-02-03] MEDS ORDERED: ACETAMINOPHEN 325 MG TAB PO PRN (04:25)
[2022-02-03] MEDS ORDERED: ONDANSETRON INJ 2 MG/ML 2 ML VIAL IV PRN (04:25)
[2022-02-03] MEDS ORDERED: ALBUTEROL HFA 8 GM INHALER INH PRN (04:25)
[2022-02-03] MEDS ORDERED: dexAMETHasone 10 MG in SYRINGE 0 ML IV ONE (05:00)
[2022-02-03] MEDS ORDERED: REMDESIVIR 200 MG in SODIUM CHLORIDE 0.9% 210 ML IV ONE (06:00)
--- NOTE | 2022-02-03 08:25 | XRay Report ---
XR chest 1V portable HISTORY: 71 years-old Male Dyspnea acute shortness of breath COMPARISON: 09/26/2021 TECHNIQUE: AP view of the chest FINDINGS: Cardiac silhouette is enlarged. Pulmonary vascular congestion with interstitial coarsening and asymme tric right hilar prominence. No airspace consolidation typical for pneumonia. No pneumothorax. Trace pleural effusions. Degenerative changes of the left shoulder and spine. Right shoulder arthroplasty. IMPRESSION: Cardiomegaly with pulmonary edema and trace pleural effusions. ACT 112: Negative or not required by law. The above report was generated using voice recognition software. It may contain grammatical, syntax o r spelling errors. Electronically signed by: John Jasso M.D. 02/03/2022 8:23 AM
[2022-02-03] MEDS: CHOLECALCIFEROL 1,000 UNITS 25 MCG TAB PO SCH (08:31)
[2022-02-03] MEDS: ENOXAPARIN INJ 60 MG/0.6 ML SYR SQ SCH (08:31)
[2022-02-03] MEDS: PANTOprazole 40 MG TAB PO SCH ×2 (08:31→21:14)
[2022-02-03] MEDS: guaiFENesin 600 MG TABCR PO SCH ×2 (08:31→21:16)
[2022-02-03] MEDS: VITAMIN B COMPLEX TAB PO SCH (08:31)
[2022-02-03] MEDS: METHYLCELLULOSE POWDER 454 GM JAR PO SCH (08:32)
[2022-02-03] MEDS: CEROVITE ADV FORMULA TAB PO SCH (08:32)
[2022-02-03] MEDS: CLOBETASOL 0.05% SCH ×2 (08:32→15:32)
[2022-02-03] MEDS: FUROSEMIDE 40 MG/4 ML VIAL IV SCH (08:32)
[2022-02-03] MEDS: VALSARTAN 80 MG TAB PO SCH (08:32)
[2022-02-03] MEDS ORDERED: AZITHROMYCIN 500 MG in DEXTROSE 5% 250 ML IV SCH (09:00)
[2022-02-03] MEDS ORDERED: hydroCHLOROthiazide 25 MG TAB PO SCH (09:00)
--- NOTE | 2022-02-03 20:49 | Hospitalist Progress Note ---
Date of Service February 03, 2022 Assessment & Plan (1) Acute respiratory failure with hypoxia: Plan: 2nd to #2, #3 overall improved today (2) Pneumonia due to COVID-19 virus: Plan: Remdesivir x 5 days Dexamethasone daily 6mg He had COVID 10/2021, but COVID testing in November was negative thus, this is likely re-infection cont airborne precautions stop zithromax no role for abx at this time (3) Congestive heart failure: Plan: copious diuresis today with usual HCTZ and lasix 40mg IV hold HCTZ echo completed; results pending daily lasix IV (4) Elevated troponin: Plan: Troponin 79.6 upon admission likely myocardial demand ischemia from #2, #3 (5) Duodenal ulcer: Plan: Duodenal ulcer that was nonbleeding and erosive gastropathy which showed stigmata of bleeding on EGD on 12/20/2021- Continue pantoprazole 40 mg p.o. twice daily Hold aspirin (6) Erosive gastropathy: Plan: PPI twice daily (7) Status post left hip replacement: Plan: Status post left hip replacement followed by periprosthetic hip fracture requiring 2 separate surgeries - fall 2021 will need PT/OT (8) Periprosthetic hip fracture: (9) Hypertension: (10) Sleep apnea: Plan: CPAP HS Plan DVT proph - lovenox Admission and Anticipated Discharge Date Admission Date: February 03, 2022 Subjective saw patient early afternoon reports feeling less short of breath feels very tired minimal cough eating no headache, myalgia, nasal symptoms or nausea/emesis does not follow with cardiology; doesn't think he has ever had echo does report chronic LE edema Physical Exam Physical Exam: gen - looks tired neck - JVD present mouth - MMM heart - RRR, s1 s2 lungs - decreased BS bases; scattered rales; no wheeze; no increased work of breathing abd - soft NT ND BS+ ext - 1+ edema b/l, pulses 2+ b/l psych - a/o x 3 Results & Data Results & Data ([facility]) Vital Signs (Past 12 Hours) Vital Signs Temp Pulse Pulse Resp BP Pulse Ox O2 Del Method 02/03/22 20:26 36.7 C 86 18 120/74 94 Nasal Cannula 02/03/22 14:02 77 02/03/22 16:16 36.7 C 84 20 134/76 94 Nasal Cannula 02/03/22 11:57 36.8 C 78 20 111/71 95 Nasal Cannula 02/03/22 10:50 36.8 C 78 20 111/71 95 Nasal Cannula O2 Flow Rate 02/03/22 20:26 3 02/03/22 14:02 02/03/22 16:16 3 02/03/22 11:57 3 02/03/22 10:50 3 Laboratory Results Laboratory Results - last 24 hr 02/03/22 02/03/22 02/03/22 01:16 01:35 01:35 WBC 8.88 RBC 4.04 L Hgb 11.9 L Hct 36.0 L MCV 89.1 MCH 29.5 MCHC 33.1 RDW Std Deviation 43.3 RDW Coeff of Marquise 13.2 Plt Count 278 MPV 9.6 Immature Gran % (Auto) 0.3 Neut % (Auto) 79.0 Lymph % (Auto) 12.5 [place] % (Auto) 7.0 Eos % (Auto) 0.9 Baso % (Auto) 0.3 Neut # (Auto) 7.01 H Lymph # (Auto) 1.11 L [place] # (Auto) 0.62 Eos # (Auto) 0.08 Baso # (Auto) 0.03 Immature Gran # (Auto) 0.03 H PT INR APTT PTT Ratio Sodium 140 Potassium 3.6 Chloride 105 Carbon Dioxide 25 Anion Gap 10 BUN 15 Creatinine 1.08 Est Cr Clr Drug Dosing 76.8 Est GFR ( Amer) 79.6 Est GFR (Non-Af Amer) 68.7 BUN/Creatinine Ratio 13.9 Glucose 107 H Calcium 9.1 Magnesium 1.9 Total Bilirubin 1.1 H AST 16 ALT 17 Alkaline Phosphatase 86 Troponin I High Sens 79.6 H* B-Natriuretic Peptide Total Protein 6.5 Albumin 4.1 Globulin 2.4 L Albumin/Globulin Ratio 1.7 SARS-CoV-2 (PCR) POSITIVE A* 02/03/22 02/03/22 02/03/22 01:35 01:35 06:36 WBC RBC Hgb Hct MCV MCH MCHC RDW Std Deviation RDW Coeff of Marquise Plt Count MPV Immature Gran % (Auto) Neut % (Auto) Lymph % (Auto) [place] % (Auto) Eos % (Auto) Baso % (Auto) Neut # (Auto) Lymph # (Auto) [place] # (Auto) Eos # (Auto) Baso # (Auto) Immature Gran # (Auto) PT 12.2 H INR 1.2 H APTT 29.0 PTT Ratio 1.1 Sodium Potassium Chloride Carbon Dioxide Anion Gap BUN Creatinine Est Cr Clr Drug Dosing Est GFR ( Amer) Est GFR (Non-Af Amer) BUN/Creatinine Ratio Glucose Calcium Magnesium Total Bilirubin AST ALT Alkaline Phosphatase Troponin I High Sens 101.9 H* D B-Natriuretic Peptide 315 H Total Protein Albumin Globulin Albumin/Globulin Ratio SARS-CoV-2 (PCR) 02/03/22 02/03/22 11:02 17:09 WBC RBC Hgb Hct MCV MCH MCHC RDW Std Deviation RDW Coeff of Marquise Plt Count MPV Immature Gran % (Auto) Neut % (Auto) Lymph % (Auto) [place] % (Auto) Eos % (Auto) Baso % (Auto) Neut # (Auto) Lymph # (Auto) [place] # (Auto) Eos # (Auto) Baso # (Auto) Immature Gran # (Auto) PT INR APTT PTT Ratio Sodium Potassium Chloride Carbon Dioxide Anion Gap BUN Creatinine Est Cr Clr Drug Dosing Est GFR ( Amer) Est GFR (Non-Af Amer) BUN/Creatinine Ratio Glucose Calcium Magnesium Total Bilirubin AST ALT Alkaline Phosphatase Troponin I High Sens 96.8 H* 87.3 H* B-Natriuretic Peptide Total Protein Albumin Globulin Albumin/Globulin Ratio SARS-CoV-2 (PCR) PG Care Time/CCT Total # of Minutes Spent Total Time Spent with Patient: Total time spent is greater than 50% in coordination of care (as documented) at patient's floor/unit and/or counseling patient: Coding Level of Care Code None Diagnoses Acute respiratory failure with hypoxia J96.01 Pneumonia due to COVID-19 virus U07.1; J12.82 Congestive heart failure I50.9 Elevated troponin R77.8 Duodenal ulcer K26.9 Erosive gastropathy K31.89 Status post left hip replacement Z96.642 Periprosthetic hip fracture M97.8XXA; Z96.649 Hypertension I10 Sleep apnea G47.30
[2022-02-03] MEDS: dilTIAZem HCL 180 MG CAPCR PO SCH (21:15)
--- NOTE | 2022-02-03 21:23 | XCELERA ---
[id number]
--- NOTE | 2022-02-03 23:08 | Electrocardiogram Report ---
Test Reason : Blood Pressure : / mmHG Vent. Rate : 082 BPM Atrial Rate : 082 BPM P-R Int : 250 ms QRS Dur : 080 ms QT Int : 412 ms P-R-T Axes : 041 -22 033 degrees QTc Int : 481 ms Poor data quality, interpretation may be adversely affected Sinus rhythm with 1st degree A-V block Prolonged QT Abnormal ECG When compared with ECG of 26-SEP-2021 09:27, QT has lengthened Confirmed by John Du ([id number] on 02/03/2022 11:08:00 PM Referred By: Brigette North Confirmed By:John Du
[2022-02-04] MEDS: CLOBETASOL 0.05% SCH ×4 (01:09→20:29)
[2022-02-04 08:04] LABS: Basophils # (auto) 0.01 K/uL (0-0.2); Basophils % (auto) 0.1 %; Hematocrit (blood only) 37.5 % (40.1-51.0); Hemoglobin 12.5 g/dl (14.0-18.0); Immature Granulocytes # (auto) 0.05 K/uL (0.00-0.02); Immature Granulocytes % (auto) 0.4 %; Lymphocytes # (auto) 0.99 K/uL (1.2-3.4); Lymphocytes % (auto) 7.7 %; Mean Corpuscular Hemoglobin 29.1 pg (25.0-34.0); Mean Corpuscular Hgb Conc 33.3 g/dL (32.0-36.0); Mean Corpuscular Volume 87.2 fL (80.0-100.0); Monocytes # (auto) 0.91 K/uL (0.24-0.82); Monocytes % (auto) 7.1 %; Neutrophils # (auto) 10.87 K/uL (1.4-6.5); Neutrophils % (auto) 84.7 %; Platelet Count 321 K/uL (130-400); RDW Coefficient of Variation 13.1 % (11.5-14.5); RDW Standard Deviation 41.3 fL (36.4-46.3); White Blood Count 12.83 K/ul (4.8-10.8)
[2022-02-04 08:29] LABS: Albumin Globulin Ratio 1.6 (0.9-2); Albumin Level 3.9 gm/dl (3.4-5.0); BUN Creatinine Ratio 17.1 (10-20); Calcium 8.9 mg/dl (8.5-10.1); Creatinine Clr Calc Pharmacy 52.7 ml/min; Est GFR (African American) 52.7 ml/min; Est GFR (Non-African American) 45.4 ml/min; Globulin 2.4 gm/dl (2.5-4.0); Potassium 3.5 mmol/L (3.5-5.1); Total Protein 6.3 gm/dl (6.0-8.3)
[2022-02-04] MEDS: ENOXAPARIN INJ 60 MG/0.6 ML SYR SQ SCH (08:51)
[2022-02-04] MEDS: FUROSEMIDE 40 MG/4 ML VIAL IV SCH (08:52)
[2022-02-04] MEDS: CHOLECALCIFEROL 1,000 UNITS 25 MCG TAB PO SCH (08:52)
[2022-02-04] MEDS: dexAMETHasone 6 MG in SYRINGE 0 ML IV SCH (08:52)
[2022-02-04] MEDS: guaiFENesin 600 MG TABCR PO SCH ×2 (08:52→20:27)
[2022-02-04] MEDS: METHYLCELLULOSE POWDER 454 GM JAR PO SCH (08:53)
[2022-02-04] MEDS: CEROVITE ADV FORMULA TAB PO SCH (08:53)
[2022-02-04] MEDS: VITAMIN B COMPLEX TAB PO SCH (08:53)
[2022-02-04] MEDS: PANTOprazole 40 MG TAB PO SCH ×2 (08:54→20:27)
[2022-02-04] MEDS: VALSARTAN 80 MG TAB PO SCH (08:54)
--- NOTE | 2022-02-04 09:02 | Electrocardiogram Report ---
Test Reason : Blood Pressure : / mmHG Vent. Rate : 068 BPM Atrial Rate : 326 BPM P-R Int : 000 ms QRS Dur : 094 ms QT Int : 482 ms P-R-T Axes : 000 -05 079 degrees QTc Int : 512 ms Atrial fibrillation with premature ventricular or aberrantly conducted complexes Low voltage QRS Prolonged QT Abnormal ECG When compared with ECG of 03-FEB-2022 01:08, Atrial fibrillation has replaced Sinus rhythm Confirmed by Aba Cox ([id number] on 02/04/2022 9:02:31 AM Referred By: Brigette North Confirmed By:Aba Cox
[2022-02-04] MEDS: REMDESIVIR 100 MG in SODIUM CHLORIDE 0.9% 230 ML IV SCH (11:50)
[2022-02-04] MEDS: dilTIAZem HCL 180 MG CAPCR PO SCH (20:27)
--- NOTE | 2022-02-04 21:57 | Hospitalist Progress Note ---
Date of Service February 04, 2022 Assessment & Plan (1) Acute respiratory failure with hypoxia: Plan: 2nd to #2, #3 resolved O2 has been weaned off dyspnea resolved (2) Pneumonia due to COVID-19 virus: Plan: Remdesivir x 5 days; day #2 today Dexamethasone daily 6mg; day #2 today He had COVID 10/2021, but COVID testing in November was negative thus, this is likely re-infection cont airborne precautions stopped zithromax - no role for abx at this time could consider d/c of Remdesivir or Dexamethasone since his respiratory status has improved rapidly (likely due to improvement in #3) (3) Acute diastolic CHF (congestive heart failure): Plan: echo with preserved EF of 60-65% grade 2 diastolic dysfunction normal valve function acute diastolic CHF MUCH improved -- diuresed 5+ liters yesterday! (had gottent his usual HCTZ as well as IV lasix) creatinine bumped overnight, and his respiratory status is much improved hold all diuretics today repeat BMP am cause of decompensation? suspect salt indiscretion around Thanksgiving time and after a.fib? stress of COVID infection does have IGOR and uses CPAP but patient showed an stacie on his phone that records his sleep and, if the stacie is correct, he is still having apneas (about 10/hr) despite compliance with CPAP he and his report his sleep study was many, many years ago -- likely needs an updated sleep study (4) Atrial fibrillation: Plan: new-onset converted to rate-controlled a.fib this am about 0400 no prior h/o a.fib or a.flutter he remains rate-controlled with diltiazem 360mg HS CHADS-VASc score is 3 --- anticoagulation recommended does have h/o upper GI issues - had EGD 11/2021 with erosive gastropathy as well as duodenal ulcer will need to review risks vs benefits of anticoagulation with patient & his if patient has been going back/forth from a.fib to NSR outside the hospital it is possible that a.fib contributed to decompensated CHF keep on tele check TSH in am check mag/K in am (5) Sleep apnea: Plan: CPAP HS ordered for tonight likely needs repeat sleep study to ensure current settings are optimal (6) Elevated troponin: Plan: Troponin 79.6 upon admission likely myocardial demand ischemia from #2, #3 (7) Duodenal ulcer: Plan: Duodenal ulcer that was nonbleeding and erosive gastropathy which showed stigmata of bleeding on EGD on 12/20/2021- Continue pantoprazole 40 mg p.o. twice daily Hold aspirin (8) Erosive gastropathy: Plan: PPI twice daily (9) Status post left hip replacement: Plan: Status post left hip replacement followed by periprosthetic hip fracture requiring 2 separate surgeries - fall 2021 PT/OT ordered (10) Periprosthetic hip fracture: Plan: left earlier this fall (11) Hypertension: Plan: following copious diuresis yesterday his BPs are low-normal today HOLD HCTZ HOLD valsartan cont diltiazem as this will serve as rate control for #4 Plan DVT proph - lovenox once daily extensively updated at bedside total care time activities today - 40 min Admission and Anticipated Discharge Date Admission Date: February 03, 2022 Subjective tele overnight -- was in NSR, then about 400am he converted to rate-controlled a.fib has remained in a.fib since patient has NO prior h/o a.fib to his knowledge he feels no palpitations from breathing standpoint he feels significantly better no dyspnea at rest no cough no orthopnea eating well does continue with fatigue was present at bedside during the visit Review of Systems Review of Systems: gen - fatigue present; no fever cv - no cp, no orthopnea, no PND pulm - no cough, no dyspnea GI - no abd pain, nausea or emesis; no diarrhea Physical Exam Physical Exam: gen - looks good today, NAD, no respiratory distress neck - JVD resolved mouth - MMM heart - irregular, s1 s2, no murmur lungs - decreased BS bases (modest) but no rales or wheezing abd - soft NT ND BS+ ext - trace edema b/l, pulses 2+ b/l psych - a/o x 3 Results & Data Results & Data ([facility]) Vital Signs (Past 12 Hours) Vital Signs Temp Pulse Resp BP Pulse Ox O2 Del Method O2 Flow Rate 02/04/22 20:43 Room Air 02/04/22 19:51 36.7 C 62 18 102/72 94 Room Air 02/04/22 16:35 36.5 C 80 20 104/61 94 Nasal Cannula 3 02/04/22 11:44 36.5 C 65 16 102/62 98 Nasal Cannula 3 Laboratory Results Laboratory Results - last 24 hr 02/03/22 02/04/22 02/04/22 23:49 07:11 07:11 WBC 12.83 H RBC 4.30 L Hgb 12.5 L Hct 37.5 L MCV 87.2 MCH 29.1 MCHC 33.3 RDW Std Deviation 41.3 RDW Coeff of Marquise 13.1 Plt Count 321 MPV 10.0 Immature Gran % (Auto) 0.4 Neut % (Auto) 84.7 Lymph % (Auto) 7.7 [place] % (Auto) 7.1 Eos % (Auto) 0.0 Baso % (Auto) 0.1 Neut # (Auto) 10.87 H Lymph # (Auto) 0.99 L [place] # (Auto) 0.91 H Eos # (Auto) 0.00 Baso # (Auto) 0.01 Immature Gran # (Auto) 0.05 H Sodium 139 Potassium 3.5 Chloride 98 Carbon Dioxide 33 H Anion Gap 8 BUN 26 H Creatinine 1.52 H D Est Cr Clr Drug Dosing 52.7 Est GFR ( Amer) 52.7 Est GFR (Non-Af Amer) 45.4 BUN/Creatinine Ratio 17.1 Glucose 112 H Calcium 8.9 Magnesium 2.0 Total Bilirubin 1.0 AST 13 ALT 13 Alkaline Phosphatase 81 Troponin I High Sens 95.6 H* Total Protein 6.3 Albumin 3.9 Globulin 2.4 L Albumin/Globulin Ratio 1.6 PG Care Time/CCT Total # of Minutes Spent Total Time Spent with Patient: Total time spent is greater than 50% in coordination of care (as documented) at patient's floor/unit and/or counseling patient: Coding Level of Care Code 99236 Subseq Hosp Care Lvl 3 Diagnoses Acute respiratory failure with hypoxia J96.01 Pneumonia due to COVID-19 virus U07.1; J12.82 Acute diastolic CHF (congestive heart failure) I50.31 Atrial fibrillation I48.91 Sleep apnea G47.30 Elevated troponin R77.8 Duodenal ulcer K26.9 Erosive gastropathy K31.89 Status post left hip replacement Z96.642 Periprosthetic hip fracture M97.8XXA; Z96.649 Hypertension I10
[2022-02-05 07:02] LABS: Basophils # (auto) 0.01 K/uL (0-0.2); Basophils % (auto) 0.1 %; Hematocrit (blood only) 37.4 % (40.1-51.0); Hemoglobin 12.5 g/dl (14.0-18.0); Immature Granulocytes # (auto) 0.05 K/uL (0.00-0.02); Immature Granulocytes % (auto) 0.4 %; Lymphocytes # (auto) 1.45 K/uL (1.2-3.4); Lymphocytes % (auto) 10.7 %; Mean Corpuscular Hgb Conc 33.4 g/dL (32.0-36.0); Mean Corpuscular Volume 86.8 fL (80.0-100.0); Mean Platelet Volume 9.7 fL (9.4-12.4); Monocytes # (auto) 0.78 K/uL (0.24-0.82); Monocytes % (auto) 5.7 %; Neutrophils # (auto) 11.28 K/uL (1.4-6.5); Neutrophils % (auto) 83.1 %; Platelet Count 341 K/uL (130-400); RDW Coefficient of Variation 13.1 % (11.5-14.5); RDW Standard Deviation 41.1 fL (36.4-46.3); Red Blood Count 4.31 M/uL (4.63-6.08); White Blood Count 13.57 K/ul (4.8-10.8)
[2022-02-05 07:30] LABS: Albumin Globulin Ratio 1.7 (0.9-2); BUN Creatinine Ratio 23.6 (10-20); Bilirubin,Total 0.8 mg/dl (0.2-1.0); Calcium 8.7 mg/dl (8.5-10.1); Creatinine Clr Calc Pharmacy 55.5 ml/min; Est GFR (African American) 56.2 ml/min; Est GFR (Non-African American) 48.5 ml/min; Globulin 2.3 gm/dl (2.5-4.0); Magnesium 2.3 mg/dl (1.7-2.4); Potassium 3.4 mmol/L (3.5-5.1); Total Protein 6.3 gm/dl (6.0-8.3)
[2022-02-05 07:36] LABS: Thyroid Stimulating Hormone 0.278 uIu/ml (0.300-4.500)
[2022-02-05] MEDS ORDERED: POTASSIUM CHLORIDE CRTAB 20 MEQ TABCR PO STA (08:39)
[2022-02-05] MEDS: ENOXAPARIN INJ 60 MG/0.6 ML SYR SQ SCH (09:03)
[2022-02-05] MEDS: CLOBETASOL 0.05% SCH ×3 (09:03→20:22)
[2022-02-05] MEDS: dexAMETHasone 6 MG in SYRINGE 0 ML IV SCH (09:03)
[2022-02-05] MEDS: CHOLECALCIFEROL 1,000 UNITS 25 MCG TAB PO SCH (09:04)
[2022-02-05] MEDS: METHYLCELLULOSE POWDER 454 GM JAR PO SCH (09:05)
[2022-02-05] MEDS: CEROVITE ADV FORMULA TAB PO SCH (09:05)
[2022-02-05] MEDS: guaiFENesin 600 MG TABCR PO SCH ×2 (09:05→20:14)
[2022-02-05] MEDS: VITAMIN B COMPLEX TAB PO SCH (09:07)
[2022-02-05] MEDS: PANTOprazole 40 MG TAB PO SCH ×2 (09:07→20:14)
[2022-02-05 12:38] LABS: T4 Free Thyroxine 1.65 ng/dl (0.61-1.60)
[2022-02-05] MEDS: REMDESIVIR 100 MG in SODIUM CHLORIDE 0.9% 230 ML IV SCH (12:47)
--- NOTE | 2022-02-05 17:06 | Hospitalist Progress Note ---
Date of Service February 05, 2022 Assessment & Plan (1) Acute respiratory failure with hypoxia: Plan: Secondary to COVID-19 pneumonia and acute diastolic CHF Chest x-ray with diffuse pulmonary edema on admission Now resolved after diuresis and treatment with steroids as below Dyspnea much improved (2) Acute diastolic CHF (congestive heart failure): Plan: Presented with hypoxia as above, pulmonary edema on chest x-ray With paroxysmal atrial fibrillation here however rates are controlled Echo with preserved EF of 60-65%, grade 2 diastolic dysfunction, normal valve function Suspect CHF exacerbation secondary to increased sodium in diet around and afterwards as well as the stress of the COVID infection and paroxysmal atrial fibrillation does have IGOR and uses CPAP but patient showed an stacie on his phone that records his sleep and, if the stacie is correct, he is still having apneas (about 10/hr) despite compliance with CPAP he and his report his sleep study was many, many years ago -- likely needs an updated sleep study -Significantly improved after receiving IV Lasix initially-diuresed net -6.4 L and has lost 8 kg of body weight in a short amount of time -Diuretics now on hold due to rising creatinine but likely will send home with a as needed dose of furosemide for weight gain -Blood pressures are controlled -Continue strict I's and O's, daily weights, low-sodium diet (3) JAH (acute kidney injury): Plan: With creatinine rising to 1.5 to after diuresis Now improving with holding further diuretics, hold valsartan and HCTZ Follow BMP in the morning (4) Atrial fibrillation: Plan: new-onset, had approximately 24 hours of rate controlled atrial fibrillation on 02/04 Spontaneous conversion to sinus rhythm with first AV block Remained rate controlled throughout on his home dose of diltiazem 360 Mg p.o. once daily Remained asymptomatic CHADS-VASc score is 3 --- anticoagulation recommended TSH here is low and free T4 is high indicating hyperthyroidism He does have h/o upper GI issues - had EGD 11/2021 with erosive gastropathy as well as duodenal ulcer that was nonbleeding He has been on Protonix 40 Mg p.o. twice daily since that time and has no further epigastric pain The ulcer and gastropathy it was thought to be secondary to recent NSAID use plus [id number] orthopedic surgeries with hip replacements likely causing stress-induced PUD -Patient agreeable to starting Eliquis 5 Mg p.o. twice daily -Will follow CBC now and would recommend following CBC as an outpatient in 1 week -Advised patient to monitor for evidence of bleeding especially from the GI tract over the next week or so -Follow-up on hypothyroidism as an outpatient with PCP -Monitor BMP and magnesium and replace as needed-give potassium chloride 40 mill equivalents p.o. x1 today -Continue to monitor on telemetry (5) Pneumonia due to COVID-19 virus: Plan: Chest x-ray with diffuse pulmonary edema with interstitial coarsening and asymmetric right hilar prominence, trace pleural effusions. With hypoxia as above Now much improved -Continue remdesivir x 5 days-last day of treatment will be 02/07 if not discharged before then -Continue dexamethasone daily 6mg daily but will discontinue after discharge due to recent peptic ulcer disease/duodenal ulcer -Cont airborne precautions -Pulmonary toilet with flutter valve, albuterol inhaler as needed -Continue guaifenesin (6) Sleep apnea: Plan: Continue CPAP HS likely needs repeat sleep study to ensure current settings are optimal (7) Elevated troponin: Plan: Troponin 79.6 upon admission and trended upward to 96 likely myocardial demand ischemia from COVID-19 pneumonia and hypoxia Echocardiogram with no wall motion abnormalities ECG without ischemia (8) Duodenal ulcer: Plan: Duodenal ulcer that was nonbleeding and erosive gastropathy which showed stigmata of bleeding on EGD on 12/20/2021- Continue pantoprazole 40 mg p.o. twice daily for now and he is to drop down to once daily later this week As above (9) Erosive gastropathy: Plan: PPI as above (10) Status post left hip replacement: Plan: Status post left hip replacement followed by periprosthetic hip fracture requiring 2 separate surgeries - fall 2021 PT/OT ordered (11) Periprosthetic hip fracture: Plan: left earlier this fall PT/OT consults appreciated (12) Hypertension: Plan: following copious diuresis, his BPs were low-normal but now are improved -Continue to hold HCTZ and valsartan as well as any further Lasix -Continue diltiazem (13) Hyperthyroidism: Plan: TSH low, free T4 high Needs follow-up with PCP and needs thyroid uptake scan as an outpatient Could be contributing to atrial fibrillation Plan DVT proph -convert Lovenox SQ to Eliquis 5 Mg p.o. twice daily Disposition-as long as renal function continues to improve and he feels well, will discharge to home tomorrow Admission and Anticipated Discharge Date Admission Date: February 03, 2022 Subjective Patient feeling much better. No dyspnea, no chest pain or abdominal pain. Still some mild leg swelling. He had a bowel movement today. Telemetry with atrial fibrillation with rates in the 60s to 70s and converted to sinus rhythm at 2302 last night with a first-degree AV block with rates in the 70s. Review of Systems Review of Systems: All systems reviewed & are unremarkable except as noted in HPI & below Physical Exam Physical Exam: gen -AAOx3, NAD, no respiratory distress mouth - MMM heart -RRR, no MGR lungs -CTAB, no WCR abd - soft NT ND BS+ ext - trace edema b/l psych - a/o x 3 Results & Data Results & Data ([facility]) Vital Signs (Past 12 Hours) Vital Signs Temp Pulse Resp BP Pulse Ox O2 Del Method 02/05/22 11:27 36.5 C 74 16 125/63 95 Room Air 02/05/22 07:47 36.5 C 65 18 103/67 95 Room Air Laboratory Results 02/05/22 02/05/22 02/05/22 Range/Units 06:32 06:32 06:32 WBC 13.57 H (4.8-10.8) K/ul RBC 4.31 L (4.63-6.08) M/uL Hgb 12.5 L (14.0-18.0) g/dl Hct 37.4 L (40.1-51.0) % MCV 86.8 (80.0-100.0) fL MCH 29.0 (25.0-34.0) pg MCHC 33.4 (32.0-36.0) g/dL RDW Std Deviation 41.1 (36.4-46.3) fL RDW Coeff of Marquise 13.1 (11.5-14.5) % Plt Count 341 (130-400) K/uL MPV 9.7 (9.4-12.4) fL Immature Gran % (Auto) 0.4 % Neut % (Auto) 83.1 % Lymph % (Auto) 10.7 % [place] % (Auto) 5.7 % Eos % (Auto) 0.0 % Baso % (Auto) 0.1 % Neut # (Auto) 11.28 H (1.4-6.5) K/uL Lymph # (Auto) 1.45 (1.2-3.4) K/uL [place] # (Auto) 0.78 (0.24-0.82) K/uL Eos # (Auto) 0.00 (0-0.50) K/uL Baso # (Auto) 0.01 (0-0.2) K/uL Immature Gran # (Auto) 0.05 H (0.00-0.02) K/uL Sodium 139 (136-145) mmol/L Potassium 3.4 L (3.5-5.1) mmol/L Chloride 98 (98-107) mmol/L Carbon Dioxide 33 H (21-32) mmol/L Anion Gap 8 (3-11) BUN 34 H (6-23) mg/dl Creatinine 1.44 H (0.6-1.4) mg/dl Est Cr Clr Drug Dosing 55.5 ml/min Est GFR ( Amer) 56.2 ml/min Est GFR (Non-Af Amer) 48.5 ml/min BUN/Creatinine Ratio 23.6 H (10-20) Glucose 104 H (70-99(Fasting)) mg/dl Calcium 8.7 (8.5-10.1) mg/dl Magnesium 2.3 (1.7-2.4) mg/dl Total Bilirubin 0.8 (0.2-1.0) mg/dl AST 12 L (13-39) U/L ALT 12 (7-52) U/L Alkaline Phosphatase 74 (34-104) U/L Total Protein 6.3 (6.0-8.3) gm/dl Albumin 4.0 (3.4-5.0) gm/dl Globulin 2.3 L (2.5-4.0) gm/dl Albumin/Globulin Ratio 1.7 (0.9-2) TSH 0.278 L (0.300-4.500) uIu/ml Free T4 1.65 H (0.61-1.60) ng/dl PG Care Time/CCT Total # of Minutes Spent Total Time Spent with Patient: Total time spent is greater than 50% in coordination of care (as documented) at patient's floor/unit and/or counseling patient: Coding Level of Care Code 87789 Subseq Hosp Care Lvl 3 Diagnoses Acute respiratory failure with hypoxia J96.01 Acute diastolic CHF (congestive heart failure) I50.31 JAH (acute kidney injury) N17.9 Atrial fibrillation I48.91 Pneumonia due to COVID-19 virus U07.1; J12.82 Sleep apnea G47.30 Elevated troponin R77.8 Duodenal ulcer K26.9 Erosive gastropathy K31.89 Status post left hip replacement Z96.642 Periprosthetic hip fracture M97.8XXA; Z96.649 Hypertension I10 Hyperthyroidism E05.90
[2022-02-05] MEDS: dilTIAZem HCL 180 MG CAPCR PO SCH (20:14)
[2022-02-05] MEDS: APIXABAN 5 MG TABLET PO SCH (20:15)
[2022-02-06 07:04] LABS: Basophils # (auto) 0.01 K/uL (0-0.2); Basophils % (auto) 0.1 %; Hematocrit (blood only) 37.7 % (40.1-51.0); Hemoglobin 12.7 g/dl (14.0-18.0); Immature Granulocytes # (auto) 0.09 K/uL (0.00-0.02); Immature Granulocytes % (auto) 0.7 %; Lymphocytes # (auto) 1.26 K/uL (1.2-3.4); Lymphocytes % (auto) 10.3 %; Mean Corpuscular Hemoglobin 29.1 pg (25.0-34.0); Mean Corpuscular Hgb Conc 33.7 g/dL (32.0-36.0); Mean Corpuscular Volume 86.5 fL (80.0-100.0); Mean Platelet Volume 9.8 fL (9.4-12.4); Monocytes # (auto) 0.65 K/uL (0.24-0.82); Monocytes % (auto) 5.3 %; Neutrophils # (auto) 10.24 K/uL (1.4-6.5); Neutrophils % (auto) 83.6 %; Platelet Count 338 K/uL (130-400); RDW Coefficient of Variation 13.2 % (11.5-14.5); RDW Standard Deviation 41.3 fL (36.4-46.3); Red Blood Count 4.36 M/uL (4.63-6.08); White Blood Count 12.25 K/ul (4.8-10.8)
[2022-02-06 07:32] LABS: Albumin Globulin Ratio 1.9 (0.9-2); Albumin Level 3.9 gm/dl (3.4-5.0); Bilirubin,Total 0.7 mg/dl (0.2-1.0); Calcium 8.5 mg/dl (8.5-10.1); Creatinine Clr Calc Pharmacy 65.1 ml/min; Est GFR (African American) 67.4 ml/min; Est GFR (Non-African American) 58.1 ml/min; Globulin 2.1 gm/dl (2.5-4.0); Magnesium 2.4 mg/dl (1.7-2.4)
[2022-02-06] MEDS: PANTOprazole 40 MG TAB PO SCH (08:06)
[2022-02-06] MEDS: guaiFENesin 600 MG TABCR PO SCH (08:06)
[2022-02-06] MEDS: APIXABAN 5 MG TABLET PO SCH (08:06)
[2022-02-06] MEDS: dexAMETHasone 6 MG in SYRINGE 0 ML IV SCH (08:06)
[2022-02-06] MEDS: METHYLCELLULOSE POWDER 454 GM JAR PO SCH (08:07)
[2022-02-06] MEDS: CHOLECALCIFEROL 1,000 UNITS 25 MCG TAB PO SCH (08:07)
[2022-02-06] MEDS: CEROVITE ADV FORMULA TAB PO SCH (08:07)
[2022-02-06] MEDS: VITAMIN B COMPLEX TAB PO SCH (08:07)
[2022-02-06] MEDS: CLOBETASOL 0.05% SCH (08:13)
[2022-02-06] MEDS: REMDESIVIR 100 MG in SODIUM CHLORIDE 0.9% 230 ML IV SCH (12:22)
--- NOTE | 2022-02-06 13:19 | Discharge Summary ---
Date of Service February 06, 2022 Admission HPI Per Admitting Provider The patient is a 71-year-old male with a past medical history including hypertension, GERD, duodenal ulcer, erosive gastropathy, status post left hip surgery on 11/16/21, and then revision on 12/07/21. He underwent an EGD on 12/20/2021 which showed an erosive gastropathy with stigmata of recent bleeding, and a nonbleeding duodenal ulcer with no stigmata of bleeding. He presented to the ED with the above rapidly progressive symptoms. Significant work-up in the emergency department include the following laboratories: Hemoglobin 11.9, hematocrit 36.0, INR 1.2, troponin 79.6, BNP 315. Patient was COVID-19 positive Chest x-ray showed congestive heart failure and interstitial infiltrates Pulse ox was 88% on room air, and improved to 94% with 3 L nasal cannula oxygen Patient was given furosemide 40 mg IV by the ED. I also started him on dexamethasone 10 mg IV, and remdesivir IV per protocol. Aspirin will be held due to recent abnormalities on EGD Principal Diagnosis Acute HFpEF, Acute respiratory failure with hypoxia JAH Paroxysmal atrial fibrillation Discharge Exam gen -AAOx3, NAD, no respiratory distress mouth - MMM heart -RRR, no MGR lungs -CTAB, no WCR abd - soft NT ND BS+ ext -no edema psych - a/o x 3 Discharge Data Allergies Allergy/AdvReac Type Severity Reaction Status Date / Time No Known Allergies Allergy Verified 02/03/22 01:42 Consultations 02/03/22 02:39 ED Decision to Admit Stat Hospital Course (1) Acute respiratory failure with hypoxia: Secondary to COVID-19 pneumonia and acute diastolic CHF Chest x-ray with diffuse pulmonary edema on admission Now resolved after diuresis and treatment with steroids as below Dyspnea resolved (2) Acute diastolic CHF (congestive heart failure): Presented with hypoxia as above, pulmonary edema on chest x-ray With paroxysmal atrial fibrillation here however rates are controlled Echo with preserved EF of 60-65%, grade 2 diastolic dysfunction, normal valve function Suspect CHF exacerbation secondary to increased sodium in diet around gi and afterwards as well as the stress of the COVID infection and paroxysmal atrial fibrillation does have IGOR and uses CPAP but patient showed an stacie on his phone that records his sleep and, if the stacie is correct, he is still having apneas (about 10/hr) despite compliance with CPAP he and his report his sleep study was many, many years ago -- likely needs an updated sleep study -Significantly improved after receiving IV Lasix initially-diuresed net -6.4 L and has lost 8 kg of body weight in a short amount of time -Diuretics then placed on hold due to rising creatinine which then improved--> will restart valsartan/HCTZ on discharge, no lasix for now -Blood pressures are controlled -Continue fluid restriction, daily weights, low-sodium diet on discharge -advised to call Cardiology or PCP if has weight gain or increasing edema and then would recommend lasix 20mg as he is quite sensitive to lasix (3) JAH (acute kidney injury): With creatinine rising to 1.5 to after diuresis Now improving down to 1.2 with holding further diuretics, valsartan and HCTZ -ok to restart valsartan/HCTZ on discharge Follow BMP in one week with PCP (4) Atrial fibrillation: new-onset, had approximately 24 hours of rate controlled atrial fibrillation on 02/04 Spontaneous conversion to sinus rhythm with first AV block Remained rate controlled throughout on his home dose of diltiazem 360 Mg p.o. once daily Remained asymptomatic CHADS-VASc score is 3 --- anticoagulation recommended TSH here is low and free T4 is high indicating hyperthyroidism He does have h/o upper GI issues - had EGD 11/2021 with erosive gastropathy as well as duodenal ulcer that was nonbleeding He has been on Protonix 40 Mg p.o. twice daily since that time and has no further epigastric pain The ulcer and gastropathy it was thought to be secondary to recent NSAID use plus [id number] orthopedic surgeries with hip replacements likely causing stress-induced PUD -Patient agreeable to starting Eliquis 5 Mg p.o. twice daily -Will follow CBC now and would recommend following CBC as an outpatient in 1 week -Advised patient to monitor for evidence of bleeding especially from the GI tract over the next week or so -Follow-up on hypothyroidism as an outpatient with PCP -Monitor BMP and magnesium and replace as needed-give potassium chloride 40 mill equivalents p.o. x1 today -Continue to monitor on telemetry (5) Pneumonia due to COVID-19 virus: Chest x-ray with diffuse pulmonary edema with interstitial coarsening and asymmetric right hilar prominence, trace pleural effusions. With hypoxia as above Now resolved -received remdesivir x 4 days-no need to complete course as improved -received dexamethasone daily 6mg daily x 4 days-will discontinue after discharge due to recent peptic ulcer disease/duodenal ulcer and improvement down to room air (6) Sleep apnea: Continue CPAP HS likely needs repeat sleep study to ensure current settings are optimal (7) Elevated troponin: Troponin 79.6 upon admission and trended upward to 96 likely myocardial demand ischemia from COVID-19 pneumonia and hypoxia Echocardiogram with no wall motion abnormalities ECG without ischemia (8) Duodenal ulcer: Duodenal ulcer that was nonbleeding and erosive gastropathy which showed stigmata of bleeding on EGD on 12/20/2021- Continue pantoprazole 40 mg p.o. twice daily for now and he is to drop down to once daily later this week As above (9) Erosive gastropathy: PPI as above (10) Status post left hip replacement: Status post left hip replacement followed by periprosthetic hip fracture requiring 2 separate surgeries - fall 2021 PT/OT ordered (11) Periprosthetic hip fracture: left earlier this fall PT/OT consults appreciated (12) Hypertension: following copious diuresis, his BPs were low-normal but now are improved -ok to restart HCTZ and valsartan on discharge -Continue diltiazem (13) Hyperthyroidism: TSH low, free T4 high Needs follow-up with PCP and needs thyroid uptake scan as an outpatient Could be contributing to atrial fibrillation Plan DVT proph - Eliquis 5 Mg p.o. twice daily Disposition-dc to home today, doing very well Total Time Total Time Spent Total Time Spent (In Minutes): 40 min Discharge Plan Discharge Items Patient Disposition: Home - Self-Care Reason For Visit: CHF, NSTEMI, COVID-19, HYPOXIA Discharge Diagnosis: CHF, COVID-19, Hypoxia, Acute kidney injury, Atrial fibrillation, Hyperthryoidism Condition on Discharge: Good Activity: As commented below Lifting: Gradually increase as tolerated Bathing: No limitations Exercise/Sports: Wait until after follow-up appointment Exercise Comment: You can do light activities of daily living for the next 1-2 weeks Non-emergency contact: Primary Care Provider and [employer] Supervisor Call non-emergency contact if: you have any medication questions and your symptoms worsen Follow-up/Referrals: Farhan Handley MD [Physician] - 02/08/22 3:30 pm (Please arrive 15 minutes prior to appointment time.) Brigette North PA-C [Primary Care Provider] - (Please follow up within 1-2 weeks.) Diet: Low Sodium (2gm) Fluids: 1500ml (6 cups) Addtl Attending Provider Instructions: You were admitted with shortness of breath and low oxygen levels from congestive heart failure. You were given lasix through the IV and urinated out a lot of fluid. This improved your oxygen levels and you were no longer needing supplemental oxygen. You also developed an irregular heart rhythm called atrial fibrillation. This can increase your risk for stroke so you were placed on Eliquis as a blood thinner to prevent stroke. Because of your history of an ulcer, please watch out for any signs of bleeding in your stool such as black stools or bloody stools, vomiting blood, etc. Please have your PCP check blood work to include a CBC and a BMP in 1 week to follow up on your blood count and your kidney function. Please follow up with the [employer] Supervisor as scheduled. Of note, your thyroid function was a bit high. You will need to follow up on this with your PCP after discharge. Call your Primary Care doctor if any of the following symptoms or problems start or get worse: * Shortness of breath or difficulty breathing * Wake up at night short of breath * Chest pain * Cough * Swelling of your hands, feet, or legs * More fatigued or tired with your normal activity * Palpitations - sudden fast heart beats WEIGHT * Weigh yourself every morning after using the bathroom. * Use the same scale. * Wear the same amount of clothing. * Write your weight down on a chart. * Call your Primary Care doctor if you gain more than 2-3 pounds in 1-2 days. MEDICATIONS * Use this discharge instruction sheet for medication instructions. * Take your medications at the time your doctor ordered. * Do not skip a dose of your medicines. * If you miss a dose of medicine, take it as soon as possible, but DO NOT DOUBLE A DOSE. * Read your medicine information when you get home. * Know all of the side effects of your medicine. If in doubt, ask your pharmacist * Call your Primary Care doctor's office if you have any side effects. * Be sure all of your doctors know what medicine and herbs you take (including cold, flu, and herbal medicine). Take the following with you to your follow-up doctor appointments: * Weight Chart * Medication List * List of questions Do not drink excessive alcohol, beer or wine. Pending Studies at Discharge: No Stand-Alone Forms: [facility], Sm[facility] Cessation Medications and DC Order Prescriptions: New Eliquis 5 mg tablet 5 mg PO BID Qty: 60 0RF Continued pantoprazole 40 mg tablet,delayed release (DR/EC) 40 mg PO BID Qty: 180 0RF diltiazem HCl 360 mg capsule,extended release 24hr 360 mg PO QPM cholecalciferol (vitamin D3) 50 mcg (2,000 unit) capsule 50 mcg PO QAM Centrum Silver 400-250 mcg tablet,chewable 1 tab PO QAM sildenafil 100 mg tablet 100 mg PO DAILY PRN (Reason: impotence) Rx Instructions: administer 30 minutes to 4 hours before activity clobetasol 0.05 % Solution 1 applic TOPICAL Q7D PRN (Reason: psoriasis) clobetasol [Clobex] 0.05 % Shampoo 1 applic TOPICAL QAM PRN (Reason: psoriasis) Benefiber Clear SF (dextrin) 3 gram/3.5 gram Powder In Packet 1 packet PO QAM Rx Instructions: mix into at least 4 oz water or juice before administering vitamin B complex [Super B Complex] Tablet 1 tab PO DAILY valsartan-hydrochlorothiazide 160-25 mg tablet 1 tab PO DAILY amoxicillin 500 mg tablet 2,000 mg PO DIRECTED PRN (Reason: 1 HR PRIOR TO DENTAL APPT.) Rx Instructions: 4 tabs 1 hour prior to procedure Discharge Orders: Discharge Order (Routine); Ordered 02/06/22 Ordered By: Jeanine Rosado Admission Data Admit Date/Time: 02/03/22 03:05 Attending Provider: Jeanine Rosado Admit Provider: Sotero Herron Primary Care Provider: Brigette North Other Providers: Sotero Herron Coding Level of Care Code D/C DAY MANAGEMENT >30 MINS Diagnoses Acute respiratory failure with hypoxia J96.01 Acute diastolic CHF (congestive heart failure) I50.31 JAH (acute kidney injury) N17.9 Atrial fibrillation I48.91 Pneumonia due to COVID-19 virus U07.1; J12.82 Sleep apnea G47.30 Elevated troponin R77.8 Duodenal ulcer K26.9 Erosive gastropathy K31.89 Status post left hip replacement Z96.642 Periprosthetic hip fracture M97.8XXA; Z96.649 Hypertension I10 Hyperthyroidism E05.90
== END 2022-02-06 14:20 | disposition home or self-care (01) | DRG 177 ==
LOC: ED 00:54 → 2S 03:05 → SUATTDRO 03:05 → 2S 03:40

== ENCOUNTER 2024-01-31 18:16 | Observation (INO) ==
--- NOTE | 2024-01-31 18:34 | Emergency Department Note ---
Impression & Plan Back pain ADMIT ED Provider Note HPI: History obtained from patient. The patient is a 73-year-old gentleman with history of atrial fibrillation, currently on Eliquis, who presents the emergency department with chief complaint of acute on chronic lower back pain. Patient states that he has had chronic pain in his lower back since the early , he states he had surgery on his L4 disc in [address] [facility]. Patient states he follows with pain management and had a steroid injection done on 01/15/2024. Patient states this seems to be improving his chronic pain up until today when he developed some worsening lower back pain mostly off to the right side today. Patient has motor and sensory function intact distally in the bilateral lower extremities, denies any recent fever. On arrival here to the ED otherwise the patient is hemodynamically stable, he appears to be in no acute distress. ROS: - Per HPI Differential Diagnosis: Epidural hematoma, epidural abscess, cauda equina syndrome, degenerative changes of the lumbar spine, neuroforaminal stenosis, spinal stenosis, herniated lumbar disc, amongst other potential pathologies. *Outpatient medications and allergy history reviewed. PE: General: Alert HEENT: Normocephalic, trachea midline Eyes: Extraocular eye movement is intact, no scleral erythema Pulmonary: Clear to auscultation bilaterally, no wheezing Cardio: Regular rate and rhythm GI: Abdomen is soft to palpation : No suprapubic tenderness MSK: No evidence of trauma or malformation of the extremities, no edema, patient is able to flex at the bilateral hips Skin: No evidence of rash Neuro: Alert, no focal deficits, 5 out of 5 strength is appreciated with dorsiflexion and plantarflexion of the bilateral lower extremities Psychiatric: Cooperative INDEPENDENT INTERPRETATIONS: vehicle monitor technician: (As interpreted by myself): - An order was placed for continuous cardiac monitoring - Patient was noted to be in sinus rhythm with a rate of 80 EKG: (As interpreted by myself): Rate: 79 Rhythm: Atrial fibrillation Intervals: Within normal limits ST changes: No ST elevation Time: 1838 Interventions provided in ED: -IV morphine, IV Zofran, IV Solu-Medrol Medical Decision Making: IV was established and lab work obtained, patient was placed on athletic monitor. Lab work shows no leukocytosis, hemoglobin is normal, platelet count is normal, CMP does not show any evidence of any critical findings. Baseline chronic kidney disease is noted. Urinalysis does not show any infection. MRI imaging of the lumbar spine with and without contrast was obtained and there is no evidence of any epidural hematoma. Chronic degenerative changes are noted and evidence of previous laminectomy. On my reassessment following the above medications the patient states he is still having pain, he states he cannot walk, he is requesting admission to the hospital at this time. Motor and sensory function is noted to be intact distally in the lower extremities however given the patient's back pain I did discuss his presentation with on-call orthopedic/spinal surgery, Dr. Coombs. He is in agreement for inpatient consultation. Patient was given an additional dose of IV morphine, I discussed the patient's presentation with the on-call hospitalist, Dr. Farooq, and the patient was placed for admission in stable condition. Consultants/Discussions held with other healthcare providers: -Orthopedic/spinal surgery, Dr. Coombs -Hospitalist, Dr. Farooq Disposition discussion held by myself with: -Patient Diagnosis: 1. Back pain, acute on chronic 2. Ambulatory dysfunction, acute 3. Multilevel degenerative disease of the lumbar spine on MRI imaging Disposition: Admission Manuel Barragan DO Emergency Medicine Past Med/Surg History Problem List (Updated 01/31/24 @ 22:53 by Manuel Barragan DO) Back pain (Acute) Scrotal bleeding (Acute) Acute exacerbation of chronic low back pain Cardiac amyloidosis Hypogammaglobulinemia Chronic gluteal pain Right side Chronic hip pain after total replacement of hip joint Encounter for pain management planning History of lumbar surgery Gluteal tendonitis of left buttock Bilateral sacroiliitis Iliotibial band tendinitis of left side Lumbar radicular pain Osteoarthritis of left knee Osteoporosis Greater trochanteric bursitis of left hip Vitamin D deficiency (Acute) Thyroid nodule (Acute) Hyperthyroidism Mitral regurgitation Left ventricular hypertrophy Atrial fibrillation Hypertension Sleep apnea CPAP Congestive heart failure (Acute) Duodenal ulcer Shoulder pain, right Status post left hip replacement (~10/2021) Periprosthetic hip fracture Medical History Erosive gastropathy 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 "Mild, thoracic aorta"- follows only with PCP History of hemangioma Liver, stable x years- follows with PCP- no further imaging follow up needed due to stability per patient Hx of prostatic malignancy 11/2012 - S/p XRT No current issues Hx of psoriasis Surgical History Nausea and vomiting after administration of anesthetic agent Remote hx>WITH BACK SURGERY Hx of colonoscopy History of total hip arthroplasty RT>PT STATED WAS DONE UNDER GENERAL>ANESTHESIA COULD NOT DO SPINAL "TRIED 4 OR 5 TIMES" Left hip replaced 11/16/21 and then needed repair on 12/07/21 Hx of knee surgery Meniscus sx Hx of umbilical hernia repair Hx of carpal tunnel repair RT/LEFT Hx of total shoulder replacement RT History of back surgery LUMBAR DISCECTOMY "NOT A FUSION" Hx of shoulder surgery RT/LEFT Family History Other No family history of adverse response to anesthesia Social History Smoking Status: Never smoker Tobacco Type: Cigars Second Hand Exposure: No; Do You Dip or Chew Tobacco: No; Hx Alcohol Use: No Hx Substance Use: No Preferred Language: Maori Communication Ability: Effective Home Hospice Aide Required: No Beliefs That Will Affect Care: None marital status: Current Living Situation: Spouse Feels Safe at Home: Yes Assistive Devices: Cane and Walker Allergies Allergies Allergy/AdvReac Type Severity Reaction Status Date / Time No Known Allergies Allergy Verified 01/21/24 09:15 Home Meds Home Medications Medication Instructions Recorded Confirmed cholecalciferol (vitamin D3) 50 50 mcg PO QAM 06/27/21 01/31/24 mcg (2,000 unit) capsule kmadmmuaoqqc-rntsufw-udrgi acid 1 tab PO QAM 06/27/21 01/31/24 400 mcg-lutein 250 mcg chewable tablet (Centrum Silver) sildenafil 100 mg tablet 100 mg PO DAILY PRN impotence 06/27/21 01/31/24 clobetasol 0.05 % scalp solution 1 applic topical Q7D PRN psoriasis 09/14/21 01/31/24 clobetasol 0.05 % shampoo (Clobex) 1 applic topical QAM PRN psoriasis 09/14/21 01/31/24 wheat dextrin 3 gram/3.5 gram oral 1 packet PO QAM 09/14/21 01/31/24 powder packet (Benefiber Clear Sugar Free(dextrin)) valsartan 160 1 tab PO DAILY 02/03/22 01/21/24 mg-hydrochlorothiazide 25 mg tablet vitamin B complex 1 tab PO DAILY 02/03/22 01/31/24 hydrocodone 7.5 mg-acetaminophen 1 tab PO Q6H PRN Pain 03/17/23 01/31/24 325 mg tablet furosemide 20 mg tablet (Lasix) 20 mg PO DAILY 07/07/23 01/31/24 potassium chloride 10 mEq 10 meq PO DAILY 10/21/23 01/31/24 capsule,extended release rosuvastatin 5 mg tablet 5 mg PO DAILY 10/21/23 01/31/24 Previous Rx's Medication Instructions Recorded apixaban 5 mg tablet (Eliquis) 5 mg PO BID #180 tabs 07/15/23 amoxicillin 500 mg tablet 2,000 mg (4 x 500 mg) PO ONCE #4 08/26/23 tabs diltiazem HCl 120 mg capsule,24 120 mg PO DAILY #90 caps 01/14/24 hr,extended release methylprednisolone 4 mg tablets in 4 mg PO .COMPLEX #21 ea 01/21/24 a dose pack Results & Data (ED) Vital Signs Vital Signs - 24 hr 01/31/24 18:18 01/31/24 18:31 01/31/24 18:48 Temperature 36.5 C Temperature Source Temporal Artery Scan Pulse Rate 74 74 73 Pulse Rate [Finger] Pulse Rhythm [Finger] Pulse Strength [Finger] Respiratory Rate 18 18 Respiratory Effort / Characteristics Non-Labored Spontaneous Respiratory Depth Normal Blood Pressure 141/76 H Blood Pressure [Right Arm] Blood Pressure Mean 97 Blood Pressure Mean [Right Arm] Blood Pressure Position Sitting Blood Pressure Position [Right Arm] Pulse Oximetry 99 99 Oxygen Delivery Method Room Air Room Air Sepsis Recent Fever Within 48 Hours No Sepsis New/Unexplained Change in Mental Status No Sepsis Action Taken by Nursing No Action Required 01/31/24 21:00 01/31/24 22:00 Temperature Temperature Source Pulse Rate Pulse Rate [Finger] 75 79 Pulse Rhythm [Finger] Regular Pulse Strength [Finger] Normal Respiratory Rate 18 18 Respiratory Effort / Characteristics Non-Labored Spontaneous Non-Labored Spontaneous Respiratory Depth Normal Normal Blood Pressure Blood Pressure [Right Arm] 135/77 137/93 Blood Pressure Mean Blood Pressure Mean [Right Arm] 96 107 Blood Pressure Position Blood Pressure Position [Right Arm] Lying Pulse Oximetry 97 96 Oxygen Delivery Method Room Air Room Air Sepsis Recent Fever Within 48 Hours Sepsis New/Unexplained Change in Mental Status Sepsis Action Taken by Nursing Laboratory Data 01/31/24 18:44 01/31/24 18:44 Lab Results 01/31/24 01/31/24 Range/Units 18:44 19:35 WBC 10.77 (4.8-10.8) K/ul RBC 5.18 (4.70-6.10) M/uL Hgb 15.9 (14.0-18.0) g/dl Hct 45.8 (42.0-52.0) % MCV 88.4 (80.0-100.0) fL MCH 30.7 (25.0-34.0) pg MCHC 34.7 (32.0-36.0) g/dL RDW Std Deviation 45.9 (36.4-46.3) fL RDW Coeff of Marquise 14.3 (11.5-14.5) % Plt Count 205 (130-400) K/uL MPV 9.9 (9.4-12.4) fL Immature Gran % (Auto) 0.5 % Neut % (Auto) 74.5 % Lymph % (Auto) 16.6 % [place] % (Auto) 7.6 % Eos % (Auto) 0.6 % Baso % (Auto) 0.2 % Neut # (Auto) 8.03 H (1.40-6.50) K/uL Lymph # (Auto) 1.79 (1.20-3.40) K/uL [place] # (Auto) 0.82 H (0.11-0.59) K/uL Eos # (Auto) 0.06 (0.00-0.50) K/uL Baso # (Auto) 0.02 (0.00-0.20) K/uL Immature Gran # (Auto) 0.05 (0.01-0.20) K/uL PT 12.3 H (9.0-12.0) Seconds INR 1.1 (0.9-1.1) Sodium 138 (136-145) mmol/L Potassium 3.5 (3.5-5.1) mmol/L Chloride 100 (98-107) mmol/L Carbon Dioxide 26 (21-32) mmol/L Anion Gap 12 H (3-11) BUN 29 H (6-23) mg/dl Creatinine 1.47 H (0.6-1.4) mg/dl Est Cr Clr Drug Dosing 53.6 ml/min eGFR 50.05 BUN/Creatinine Ratio 19.7 (10-20) Glucose 92 (70-99(Fasting)) mg/dl Calcium 9.8 (8.6-10.3) mg/dl Total Bilirubin 3.5 H (0.2-1.0) mg/dl AST 30 (13-39) U/L ALT 49 (7-52) U/L Alkaline Phosphatase 64 (34-104) U/L Total Protein 6.3 (6.0-8.3) gm/dl Albumin 4.4 (3.4-5.0) gm/dl Globulin 1.9 L (2.5-4.0) gm/dl Albumin/Globulin Ratio 2.3 H (0.9-2) Lipase 19 (11-82) U/L Urine Color Yellow Urine Appearance Clear (Clear) Urine pH 7.5 (4.5-7.5) Ur Specific [place] 1.010 (1.000-1.030) Urine Protein 1+ H (Negative) Urine Glucose (UA) Negative (Negative) Urine Ketones 1+ H (Negative) Urine Blood Negative (Negative) Urine Nitrite Negative (Negative) Urine Bilirubin Negative (Negative) Urine Urobilinogen Negative (Negative) Ur Leukocyte Esterase Negative (Negative) Urine WBC (Auto) 0-5 (0-5) /hpf Urine RBC (Auto) 6-10 H (0-2) /hpf U Hyaline Cast (Auto) 3-5 H (0-2) /lpf U Epithel Cells (Auto) 0-2 (0-2) /hpf Urine Bacteria (Auto) None Seen (None Seen) Urine Sperm Present A (None Prsent) Administered Medications Discontinued Medications Gadobutrol (Gadobutrol 30ml Vial) 10.5 ml IV ONCE ONE Stop: 01/31/24 19:45 Last Admin: 01/31/24 19:44 Dose: 10.5 ml Documented By: DP Methylprednisolone (Methylprednisolone 125 Mg/2 Ml Vial) 125 mg IV NOW STA Stop: 01/31/24 18:33 Last Admin: 01/31/24 18:54 Dose: 125 mg Documented By: EJV Morphine Sulfate (Morphine Sulfate 4 Mg/Ml 1 Ml Carp\\Vial) 4 mg IV NOW STA Stop: 01/31/24 18:32 Last Admin: 01/31/24 18:55 Dose: 4 mg Documented By: FARRUKH Morphine Sulfate (Morphine Sulfate 4 Mg/Ml 1 Ml Carp\\Vial) 4 mg IV NOW STA Stop: 01/31/24 22:08 Last Admin: 01/31/24 22:25 Dose: 4 mg Documented By: FARRUKH Ondansetron HCl (Ondansetron Inj 2 Mg/Ml 2 Ml Vial) 4 mg IV NOW STA Stop: 01/31/24 18:32 Last Admin: 01/31/24 18:55 Dose: 4 mg Documented By: FARRUKH Imaging Data Radiologist's Impression: Lumbar Spine MRI 01/31/24 18:36 Exam(s): MRI L SPINE W/WO Contrast IV Amt: 10.5 ml gadavist EXAM: MR Lumbar Spine Without and With Intravenous Contrast CLINICAL HISTORY: Back pain, recent injection, eval for hematoma. TECHNIQUE: Magnetic resonance images of the lumbar spine without and with intravenous contrast in multiple planes. CONTRAST: Patient received 10.5 ml gadavist of IV contrast COMPARISON: 08/24/2023. FINDINGS: Vertebrae: Maintenance of height of the vertebral bodies. No subluxation. Redemonstrated marrow edema with enhancement in the at the inferior aspect of the L1 vertebral body. Reactive edema and enhancement centered at the L2 and L3 vertebral body. No evidence for fracture. Redemonstrated left L4 laminectomy defect. Spinal cord: Conus medullaris is T12-L1 and is unremarkable. Cauda equina is unremarkable. No intraspinal mass or collection. No abnormal enhancement of the spinal cord or the canal contents. Disk spaces/spinal canal/neural foramina: Unchanged multi-level disc and facet degenerative changes greatest degree stenosis between L1-2 and L4-5. Neural foraminal stenosis at L5-S1 without significant central canal stenosis. Soft tissues: No paraspinal collection. IMPRESSION: No intraspinal hematoma or collection. No abnormal enhancement to suggest epidural abscess. Redemonstrated extensive multilevel degenerative changes throughout the lumbar spine. Electronically signed by: Dane Cobb M.D. 01/31/24 21:52 PM Discharge Plan Visit Data Chief Complaint: Back Injury/Pain Stated Complaint: LOWER BACK PAIN, HIP LEFT HIP ED Provider: Manuel Barragan Discharge Problem: Back pain Forms Stand Alone Forms: My [facility] Prescriptions Prescriptions: No Action hydrocodone-acetaminophen 7.5-325 mg tablet 1 tab PO Q6H PRN (Reason: Pain) methylprednisolone 4 mg tablets,dose pack 4 mg PO .COMPLEX Qty: 21 0RF Rx Instructions: 4 mg PO Use as directed; amoxicillin 500 mg tablet 2,000 mg PO ONCE Qty: 4 3RF Rx Instructions: 4 tabs 1 hour prior to procedure cholecalciferol (vitamin D3) 50 mcg (2,000 unit) capsule 50 mcg PO QAM Centrum Silver 400-250 mcg tablet,chewable 1 tab PO QAM sildenafil 100 mg tablet 100 mg PO DAILY PRN (Reason: impotence) Rx Instructions: administer 30 minutes to 4 hours before activity Eliquis 5 mg tablet 5 mg PO BID Qty: 180 3RF diltiazem HCl 120 mg capsule,extended release 24 hr 120 mg PO DAILY Qty: 90 3RF rosuvastatin 5 mg tablet 5 mg PO DAILY potassium chloride 10 mEq capsule, extended release 10 meq PO DAILY clobetasol 0.05 % Solution 1 applic TOPICAL Q7D PRN (Reason: psoriasis) clobetasol [Clobex] 0.05 % Shampoo 1 applic TOPICAL QAM PRN (Reason: psoriasis) Benefiber Clear SF (dextrin) 3 gram/3.5 gram Powder In Packet 1 packet PO QAM Rx Instructions: mix into at least 4 oz water or juice before administering vitamin B complex Tablet 1 tab PO DAILY valsartan-hydrochlorothiazide 160-25 mg tablet 1 tab PO DAILY furosemide [Lasix] 20 mg Tablet 20 mg PO DAILY Referrals Referrals: Brigette North PA-C [Primary Care Provider] - Discharge Problem: Back pain Qualifiers: Back pain location: low back pain Chronicity: chronic Back pain laterality: b ilateral Sciatica presence: without sciatica Qualified Code(s): M54.50 - Low back pain, unspecified; G89.29 - Other chronic pain
[2024-01-31] MEDS: methylPREDNISolone 125 MG/2 ML VIAL IV STA (18:54)
[2024-01-31] MEDS: ONDANSETRON INJ 2 MG/ML 2 ML VIAL IV STA (18:55)
[2024-01-31] MEDS: MoRPHine SULFATE 4 MG/ML 1 ML CARP\\VIAL IV STA ×2 (18:55→22:25)
[2024-01-31 18:57] LABS: Basophils # (auto) 0.02 K/uL (0.00-0.20); Basophils % (auto) 0.2 %; Eosinophils # (auto) 0.06 K/uL (0.00-0.50); Eosinophils % (auto) 0.6 %; Hematocrit (blood only) 45.8 % (42.0-52.0); Hemoglobin 15.9 g/dl (14.0-18.0); Immature Granulocytes # (auto) 0.05 K/uL (0.01-0.20); Immature Granulocytes % (auto) 0.5 %; Lymphocytes # (auto) 1.79 K/uL (1.20-3.40); Lymphocytes % (auto) 16.6 %; Mean Corpuscular Hemoglobin 30.7 pg (25.0-34.0); Mean Corpuscular Hgb Conc 34.7 g/dL (32.0-36.0); Mean Corpuscular Volume 88.4 fL (80.0-100.0); Mean Platelet Volume 9.9 fL (9.4-12.4); Monocytes # (auto) 0.82 K/uL (0.11-0.59); Monocytes % (auto) 7.6 %; Neutrophils # (auto) 8.03 K/uL (1.40-6.50); Neutrophils % (auto) 74.5 %; Platelet Count 205 K/uL (130-400); RDW Coefficient of Variation 14.3 % (11.5-14.5); RDW Standard Deviation 45.9 fL (36.4-46.3); Red Blood Count 5.18 M/uL (4.70-6.10); White Blood Count 10.77 K/ul (4.8-10.8)
[2024-01-31 19:15] LABS: Albumin Globulin Ratio 2.3 (0.9-2); Albumin Level 4.4 gm/dl (3.4-5.0); BUN Creatinine Ratio 19.7 (10-20); Bilirubin,Total 3.5 mg/dl (0.2-1.0); Calcium 9.8 mg/dl (8.6-10.3); Creatinine Clr Calc Pharmacy 53.6 ml/min; Globulin 1.9 gm/dl (2.5-4.0); Potassium 3.5 mmol/L (3.5-5.1); Total Protein 6.3 gm/dl (6.0-8.3)
[2024-01-31 19:24] LABS: INR 1.1 (0.9-1.1); Prothrombin Time 12.3 Seconds (9.0-12.0)
[2024-01-31] MEDS: GADOBUTROL 30ML VIAL IV ONE (19:44)
[2024-01-31 20:25] LABS: Appearance Urine Clear (Clear); Bacteria Urine Automated None Seen (None Seen); Bilirubin Urine Negative (Negative); Blood Urine Negative (Negative); Color Urine Yellow; Epithelial Cell Urine Auto 0-2 /hpf (0-2); Glucose Urine UA Negative (Negative); Ketones Urine 1+ (Negative); Leukocyte Esterase Urine Negative (Negative); Nitrite Urine Negative (Negative); Protein Urine 1+ (Negative); Sperm Urine Present (None Prsent); Urobilinogen Urine Negative (Negative); WBC Urine Automated 0-5 /hpf (0-5); pH Urine 7.5 (4.5-7.5)
--- NOTE | 2024-01-31 21:53 | Magnetic Resonance Report ---
Exam(s): MRI L SPINE W/WO Contrast IV Amt: 10.5 ml gadavist EXAM: MR Lumbar Spine Without and With Intravenous Contrast CLINICAL HISTORY: Back pain, recent injection, eval for hematoma. TECHNIQUE: Magnetic resonance images of the lumbar spine without and with intravenous contrast in multiple planes. CONTRAST: Patient received 10.5 ml gadavist of IV contrast COMPARISON: 08/24/2023. FINDINGS: Vertebrae: Maintenance of height of the vertebral bodies. No subluxation. Redemonstrated marrow edema with enhancement in the at the inferior aspect of the L1 vertebral body. Reactive edema and enhancement centered at the L2 and L3 vertebral body. No evidence for fracture. Redemonstrated left L4 laminectomy defect. Spinal cord: Conus medullaris is T12-L1 and is unremarkable. Cauda equina is unremarkable. No intraspinal mass or collection. No abnormal enhancement of the spinal cord or the canal contents. Disk spaces/spinal canal/neural foramina: Unchanged multi-level disc and facet degenerative changes greatest degree stenosis between L1-2 and L4-5. Neural foraminal stenosis at L5-S1 without significant central canal stenosis. Soft tissues: No paraspinal collection. IMPRESSION: No intraspinal hematoma or collection. No abnormal enhancement to suggest epidural abscess. Redemonstrated extensive multilevel degenerative changes throughout the lumbar spine. Electronically signed by: Dane Cobb M.D. 01/31/24 21:52 PM
--- NOTE | 2024-01-31 23:04 | History & Physical Report ---
Date of Service January 31, 2024 Assessment & Plan (1) Back pain: Plan: 73yo male with history of chronic back pain presenting with acute worsening of pain. No trauma, fevers or chills, no bowel or bladder involvement, no neurological symptoms. MRI obtained due to recent injection - no hematoma or collection -Observation to medical -Multimodal pain management to include Tylenol 1gm po TID, Flexeril, Morphine PRN -Prednisone 40mg po daily x 3 days -Bowel regimen with Miralax and Senna PRN -Heat -PT/OT evaluation appreciated -Ortho-Spine evaluation appreciated (2) Atrial fibrillation: Plan: Chronic. Patient follows with Cardiology. -Continue Apixaban anticoagulation 5mg po BID -Continue Diltiazem (3) Hypertension: Plan: Chronic. Blood pressure stable -Continue Diltiazem -Continue Valsartan-HCTZ -Monitor (4) Sleep apnea: Plan: Chronic -CPAP qHS Plan F/E/N - Saline lock. Electrolytes WNL. Regular diet as tolerated Ppx - Continue home Apixaban Code - Full Dispo - Observation to medical History of Present Illness Chief Complaint: intractable back pain Primary Care Provider: Brigette North PA-C Jong Real is a 73yo male with history of cardiac amyloidosis, HTN, atrial fibrillation on Apixaban anticoagulation presenting with acute on chronic back pain. Patient follows with Pain Management team. He had a trigger point injection performed 2 weeks ago with temporary improvement in his back pain. Today he developed severe bandlike low back pain, difficulty standing up, bending over or ambulating. He took a Hydrocodone-Acetaminophen at home with no relief. He denies fall or trauma, no fever/chills/sweats. He has no bowel or bladder involvement. No numbness/tingling or weakness. He does have some chronic discomfort, instability and partial numbness in his LLE since having a hip arthroplasty in 2021 In the ER patient afebrile, HD stable ER Course: Solumedrol 125mg IV Morphine Allergies Allergy/AdvReac Type Severity Reaction Status Date / Time No Known Allergies Allergy Verified 01/21/24 09:15 Home Medications Medication Instructions Recorded Confirmed Type cholecalciferol (vitamin D3) 50 50 mcg PO QAM 06/27/21 01/31/24 History mcg (2,000 unit) capsule kuoklruqgyci-wfsnwgd-zorez acid 1 tab PO QAM 06/27/21 01/31/24 History 400 mcg-lutein 250 mcg chewable tablet (Centrum Silver) sildenafil 100 mg tablet 100 mg PO DAILY PRN impotence 06/27/21 01/31/24 History clobetasol 0.05 % scalp solution 1 applic topical Q7D PRN psoriasis 09/14/21 1 04/02/23 History clobetasol 0.05 % shampoo (Clobex) 1 applic topical QAM PRN psoriasis 09/14/21 01/31/24 History wheat dextrin 3 gram/3.5 gram oral 1 packet PO QAM 09/14/21 01/31/24 History powder packet (Benefiber Clear Sugar Free(dextrin)) valsartan 160 1 tab PO DAILY 02/03/22 01/21/24 History mg-hydrochlorothiazide 25 mg tablet vitamin B complex 1 tab PO DAILY 02/03/22 01/31/24 History hydrocodone 7.5 mg-acetaminophen 1 tab PO Q6H PRN Pain 03/17/23 01/31/24 History 325 mg tablet furosemide 20 mg tablet (Lasix) 20 mg PO DAILY 07/07/23 01/31/24 History apixaban 5 mg tablet (Eliquis) 5 mg PO BID #180 tabs 07/15/23 01/31/24 Rx amoxicillin 500 mg tablet 2,000 mg (4 x 500 mg) PO ONCE #4 08/26/23 01/31/24 Rx tabs potassium chloride 10 mEq 10 meq PO DAILY 10/21/23 01/31/24 History capsule,extended release rosuvastatin 5 mg tablet 5 mg PO DAILY 10/21/23 01/31/24 History diltiazem HCl 120 mg capsule,24 120 mg PO DAILY #90 caps 01/14/24 01/31/24 Rx hr,extended release methylprednisolone 4 mg tablets in 4 mg PO .COMPLEX #21 ea 01/21/24 01/21/24 Rx a dose pack Past Med/Surg History Problem List Back pain (Acute) Scrotal bleeding (Acute) Acute exacerbation of chronic low back pain Cardiac amyloidosis Hypogammaglobulinemia Chronic gluteal pain Right side Chronic hip pain after total replacement of hip joint Encounter for pain management planning History of lumbar surgery Gluteal tendonitis of left buttock Bilateral sacroiliitis Iliotibial band tendinitis of left side Lumbar radicular pain Osteoarthritis of left knee Osteoporosis Greater trochanteric bursitis of left hip Vitamin D deficiency (Acute) Thyroid nodule (Acute) Hyperthyroidism Mitral regurgitation Left ventricular hypertrophy Atrial fibrillation Hypertension Sleep apnea CPAP Congestive heart failure (Acute) Duodenal ulcer Shoulder pain, right Status post left hip replacement (~10/2021) Periprosthetic hip fracture Medical History Erosive gastropathy 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 "Mild, thoracic aorta"- follows only with PCP History of hemangioma Liver, stable x years- follows with PCP- no further imaging follow up needed due to stability per patient Hx of prostatic malignancy 11/2012 - S/p XRT No current issues Hx of psoriasis Surgical History Nausea and vomiting after administration of anesthetic agent Remote hx>WITH BACK SURGERY Hx of colonoscopy History of total hip arthroplasty RT>PT STATED WAS DONE UNDER GENERAL>ANESTHESIA COULD NOT DO SPINAL "TRIED 4 OR 5 TIMES" Left hip replaced 11/16/21 and then needed repair on 12/07/21 Hx of knee surgery Meniscus sx Hx of umbilical hernia repair Hx of carpal tunnel repair RT/LEFT Hx of total shoulder replacement RT History of back surgery LUMBAR DISCECTOMY "NOT A FUSION" Hx of shoulder surgery RT/LEFT Family History Other No family history of adverse response to anesthesia Social History Smoking Status: Never smoker Tobacco Type: Cigars Second Hand Exposure: No; Do You Dip or Chew Tobacco: No; Hx Alcohol Use: No Hx Substance Use: No Preferred Language: Pakistani Communication Ability: Effective 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 Beliefs That Will Affect Care: None marital status: Current Living Situation: Spouse Feels Safe at Home: Yes Assistive Devices: Cane and Walker Review of Systems Review of Systems: All systems reviewed & are unremarkable except as noted in HPI & below Physical Exam Physical Exam: General: patient resting comfortably, NAD, non-toxic in appearance, AA&O x 4 Skin: warm, dry, intact, no rashes or lesions HEENT: NC/AT, PERRL, EOMI, anicteric sclera, conjunctiva without injection, external ear normal to inspection and nontender, nares patent, moist mucus membranes, dentition intact, no oropharyngeal lesions, neck supple, trachea mid line, no LAD, no thyromegaly, no JVD Heart: +S1/S2, regular, no m/r/g Lungs: equal air entry bilaterally, no rales/rhonchi/wheezes Abd: +BS, soft, NT/ND, no masses/organomegaly/ascites Pain with palpation of paraspinal musculature R > L Ext: warm, 2+ pulses in UE/LE bilaterally, no clubbing/cyanosis or edema Neuro: nonfocal, patient AA&O x 4, speech intact, no facial droop, moving all extremities on command with equal strength 5/5 Results & Data Results & Data Vital Signs (Past 12 Hours) Vital Signs Temp Pulse Pulse Resp BP BP Pulse Ox 01/31/24 22:00 79 18 137/93 96 01/31/24 21:00 75 18 135/77 97 01/31/24 18:48 73 01/31/24 18:31 74 18 99 01/31/24 18:18 36.5 C 74 18 141/76 H 99 O2 Del Method 01/31/24 22:00 Room Air 01/31/24 21:00 Room Air 01/31/24 18:48 01/31/24 18:31 Room Air 01/31/24 18:18 Room Air Laboratory Results Laboratory Results WBC 10.77 K/ul (4.8-10.8) 01/31/24 18:44 RBC 5.18 M/uL (4.70-6.10) 01/31/24 18:44 Hgb 15.9 g/dl (14.0-18.0) 01/31/24 18:44 Hct 45.8 % (42.0-52.0) 01/31/24 18:44 MCV 88.4 fL (80.0-100.0) 01/31/24 18:44 MCH 30.7 pg (25.0-34.0) 01/31/24 18:44 MCHC 34.7 g/dL (32.0-36.0) 01/31/24 18:44 RDW Std Deviation 45.9 fL (36.4-46.3) 01/31/24 18:44 RDW Coeff of Marquise 14.3 % (11.5-14.5) 01/31/24 18:44 Plt Count 205 K/uL (130-400) 01/31/24 18:44 MPV 9.9 fL (9.4-12.4) 01/31/24 18:44 Immature Gran % (Auto) 0.5 % 01/31/24 18:44 Neut % (Auto) 74.5 % 01/31/24 18:44 Lymph % (Auto) 16.6 % 01/31/24 18:44 Gates % (Auto) 7.6 % 01/31/24 18:44 Eos % (Auto) 0.6 % 01/31/24 18:44 Baso % (Auto) 0.2 % 01/31/24 18:44 Neut # (Auto) 8.03 K/uL (1.40-6.50) H 01/31/24 18:44 Lymph # (Auto) 1.79 K/uL (1.20-3.40) 01/31/24 18:44 Gates # (Auto) 0.82 K/uL (0.11-0.59) H 01/31/24 18:44 Eos # (Auto) 0.06 K/uL (0.00-0.50) 01/31/24 18:44 Baso # (Auto) 0.02 K/uL (0.00-0.20) 01/31/24 18:44 Immature Gran # (Auto) 0.05 K/uL (0.01-0.20) 01/31/24 18:44 PT 12.3 Seconds (9.0-12.0) H 01/31/24 18:44 INR 1.1 (0.9-1.1) 01/31/24 18:44 Sodium 138 mmol/L (136-145) 01/31/24 18:44 Potassium 3.5 mmol/L (3.5-5.1) 01/31/24 18:44 Chloride 100 mmol/L (98-107) 01/31/24 18:44 Carbon Dioxide 26 mmol/L (21-32) 01/31/24 18:44 Anion Gap 12 (3-11) H 01/31/24 18:44 BUN 29 mg/dl (6-23) H 01/31/24 18:44 Creatinine 1.47 mg/dl (0.6-1.4) H 01/31/24 18:44 Est Cr Clr Drug Dosing 53.6 ml/min 01/31/24 18:44 eGFR 50.05 01/31/24 18:44 BUN/Creatinine Ratio 19.7 (10-20) 01/31/24 18:44 Glucose 92 mg/dl (70-99(Fasting)) 01/31/24 18:44 Calcium 9.8 mg/dl (8.6-10.3) 01/31/24 18:44 Total Bilirubin 3.5 mg/dl (0.2-1.0) H 01/31/24 18:44 AST 30 U/L (13-39) 01/31/24 18:44 ALT 49 U/L (7-52) 01/31/24 18:44 Alkaline Phosphatase 64 U/L (34-104) 01/31/24 18:44 Total Protein 6.3 gm/dl (6.0-8.3) 01/31/24 18:44 Albumin 4.4 gm/dl (3.4-5.0) 01/31/24 18:44 Globulin 1.9 gm/dl (2.5-4.0) L 01/31/24 18:44 Albumin/Globulin Ratio 2.3 (0.9-2) H 01/31/24 18:44 Lipase 19 U/L (11-82) 01/31/24 18:44 Urine Color Yellow 01/31/24 19:35 Urine Appearance Clear (Clear) 01/31/24 19:35 Urine pH 7.5 (4.5-7.5) 01/31/24 19:35 Ur Specific Goode 1.010 (1.000-1.030) 01/31/24 19:35 Urine Protein 1+ (Negative) H 01/31/24 19:35 Urine Glucose (UA) Negative (Negative) 01/31/24 19:35 Urine Ketones 1+ (Negative) H 01/31/24 19:35 Urine Blood Negative (Negative) 01/31/24 19:35 Urine Nitrite Negative (Negative) 01/31/24 19:35 Urine Bilirubin Negative (Negative) 01/31/24 19:35 Urine Urobilinogen Negative (Negative) 01/31/24 19:35 Ur Leukocyte Esterase Negative (Negative) 01/31/24 19:35 Urine WBC (Auto) 0-5 /hpf (0-5) 01/31/24 19:35 Urine RBC (Auto) 6-10 /hpf (0-2) H 01/31/24 19:35 U Hyaline Cast (Auto) 3-5 /lpf (0-2) H 01/31/24 19:35 U Epithel Cells (Auto) 0-2 /hpf (0-2) 01/31/24 19:35 Urine Bacteria (Auto) None Seen (None Seen) 01/31/24 19:35 Urine Sperm Present (None Prsent) A 01/31/24 19:35 Impressions Lumbar Spine MRI 01/31/24 18:36 Exam(s): MRI L SPINE W/WO Contrast IV Amt: 10.5 ml gadavist EXAM: MR Lumbar Spine Without and With Intravenous Contrast CLINICAL HISTORY: Back pain, recent injection, eval for hematoma. TECHNIQUE: Magnetic resonance images of the lumbar spine without and with intravenous contrast in multiple planes. CONTRAST: Patient received 10.5 ml gadavist of IV contrast COMPARISON: 08/24/2023. FINDINGS: Vertebrae: Maintenance of height of the vertebral bodies. No subluxation. Redemonstrated marrow edema with enhancement in the at the inferior aspect of the L1 vertebral body. Reactive edema and enhancement centered at the L2 and L3 vertebral body. No evidence for fracture. Redemonstrated left L4 laminectomy defect. Spinal cord: Conus medullaris is T12-L1 and is unremarkable. Cauda equina is unremarkable. No intraspinal mass or collection. No abnormal enhancement of the spinal cord or the canal contents. Disk spaces/spinal canal/neural foramina: Unchanged multi-level disc and facet degenerative changes greatest degree stenosis between L1-2 and L4-5. Neural foraminal stenosis at L5-S1 without significant central canal stenosis. Soft tissues: No paraspinal collection. IMPRESSION: No intraspinal hematoma or collection. No abnormal enhancement to suggest epidural abscess. Redemonstrated extensive multilevel degenerative changes throughout the lumbar spine. Electronically signed by: Dane Cobb M.D. 01/31/24 21:52 PM PG Care Time/CCT Total # of Minutes Spent Total Time Spent with Patient: Total time spent is greater than 50% in coordination of care (as documented) at patient's floor/unit and/or counseling patient: Coding Level of Care Code 70036 INT INP/OBS CARE 3/75MIN Diagnoses Back pain M54.50; G89.29 Back pain laterality: bilateral Back pain location: low back pain Chronicity: chronic Sciatica presence: without sciatica Atrial fibrillation I48.91 Hypertension I10 Sleep apnea G47.30 (1) Back pain Back pain laterality: bilateral Back pain location: low back pain Chronicity: chronic Sciatica presence: without sciatica Qualified Code(s): M54.50 - Low back pain, unspecified; G89.29 - Other chronic pain
[2024-01-31] MEDS: ROSUVASTATIN CALCIUM 5 MG TAB PO STA (23:13)
[2024-01-31] MEDS: dilTIAZem HCL 120 MG CAPCR PO STA (23:13)
[2024-01-31] MEDS: APIXABAN 5 MG TABLET PO ONE (23:13)
[2024-02-01] MEDS ORDERED: ONDANSETRON INJ 2 MG/ML 2 ML VIAL IV PRN (02:19)
[2024-02-01] MEDS ORDERED: POLYETHYLENE (MIRALAX) 17 GM PACK PO PRN (02:19)
[2024-02-01] MEDS ORDERED: DOCUSATE SODIUM 100 MG CAP PO PRN (02:19)
[2024-02-01] MEDS ORDERED: MoRPHine SULFATE 2 MG/ML CARP IV PRN (02:19)
[2024-02-01] MEDS: MoRPHine SULFATE 4 MG/ML 1 ML CARP\\VIAL IV PRN (04:03)
[2024-02-01 05:25] LABS: Hematocrit (blood only) 43.7 % (42.0-52.0); Hemoglobin 14.3 g/dl (14.0-18.0); Mean Corpuscular Hemoglobin 29.9 pg (25.0-34.0); Mean Corpuscular Hgb Conc 32.7 g/dL (32.0-36.0); Mean Corpuscular Volume 91.2 fL (80.0-100.0); Mean Platelet Volume 9.9 fL (9.4-12.4); Platelet Count 174 K/uL (130-400); RDW Coefficient of Variation 14.2 % (11.5-14.5); RDW Standard Deviation 47.5 fL (36.4-46.3); Red Blood Count 4.79 M/uL (4.70-6.10); White Blood Count 8.16 K/ul (4.8-10.8)
[2024-02-01 05:37] LABS: Albumin Level 3.7 gm/dl (3.4-5.0); BUN Creatinine Ratio 19.6 (10-20); Bilirubin Direct 0.5 mg/dl (0-0.2); Bilirubin,Total 2.7 mg/dl (0.2-1.0); Calcium 8.8 mg/dl (8.6-10.3); Creatinine Clr Calc Pharmacy 55.1 ml/min; Total Protein 5.3 gm/dl (6.0-8.3)
--- NOTE | 2024-02-01 07:18 | Hospitalist Progress Note ---
Date of Service February 01, 2024 Assessment & Plan (1) Back pain: Plan: 73yo male with history of chronic back pain presenting with acute worsening of pain. No trauma, fevers or chills, no bowel or bladder involvement, no neurological symptoms. MRI obtained due to recent injection - no hematoma or collection -was seen by ortho spine recommended pain management consult -Multimodal pain management to include Tylenol 1gm po TID, Flexeril, Morphine PRN -Prednisone 40mg po daily x 3 days -Bowel regimen with Miralax and Senna PRN -Heat -PT/OT evaluation appreciated -Ortho-Spine evaluation appreciated -Pain Management consult recommended (2) Atrial fibrillation: Plan: Chronic. Patient follows with Cardiology. -Continue Apixaban anticoagulation 5mg po BID -Continue Diltiazem history of ATTR cardiac amyloid not on therapy at this time follows with Dr Handley (3) Hypertension: Plan: Chronic. Blood pressure stable -Continue Diltiazem -Continue Valsartan-HCTZ -Monitor (4) Sleep apnea: Plan: Chronic -CPAP qHS Plan F/E/N - Saline lock. Electrolytes WNL. Regular diet as tolerated Ppx - Continue home Apixaban Code - Full Admission and Anticipated Discharge Date Admission Date: January 31, 2024 Subjective pt states pain started at rest and was severe pain does not necessarily have radicular pain, has some chronic left leg/hip pain Physical Exam Physical Exam: no pain to slr cardiac is regular lungs are clear Results & Data Results & Data Vital Signs (Past 12 Hours) Vital Signs Temp Pulse Pulse Resp BP BP Pulse Ox 02/01/24 07:00 71 13 106/66 96 02/01/24 06:00 64 20 90/50 L 96 02/01/24 05:15 70 25 H 97 02/01/24 04:40 02/01/24 04:40 66 17 108/71 93 02/01/24 04:00 71 22 108/71 84 L 02/01/24 03:01 65 23 86/46 L 96 02/01/24 02:22 76 16 132/76 91 02/01/24 02:19 97.9 F 69 20 132/76 94 02/01/24 02:19 72 17 116/71 96 02/01/24 02:04 71 02/01/24 02:00 88 14 116/71 95 02/01/24 01:06 78 16 135/85 96 02/01/24 00:00 71 24 137/89 96 02/01/24 00:00 137/89 01/31/24 23:30 77 23 129/83 97 01/31/24 23:00 88 18 147/91 H 100 01/31/24 22:00 79 18 137/93 96 01/31/24 21:00 75 18 135/77 97 O2 Del Method O2 Flow Rate 02/01/24 07:00 02/01/24 06:00 Nasal Cannula 4 02/01/24 05:15 Nasal Cannula 4 02/01/24 04:40 Nasal Cannula 4 02/01/24 04:40 Nasal Cannula 4 02/01/24 04:00 Nasal Cannula 4 02/01/24 03:01 Nasal Cannula 4 02/01/24 02:22 Nasal Cannula 4 02/01/24 02:19 Nasal Cannula 2 02/01/24 02:19 Room Air 02/01/24 02:04 02/01/24 02:00 Room Air 02/01/24 01:06 Room Air 02/01/24 00:00 Room Air 02/01/24 00:00 01/31/24 23:30 01/31/24 23:00 01/31/24 22:00 Room Air 01/31/24 21:00 Room Air Laboratory Results review cbc review chemistry PG Care Time/CCT Total # of Minutes Spent Total Time Spent with Patient: Total time spent is greater than 50% in coordination of care (as documented) at patient's floor/unit and/or counseling patient: Coding Level of Care Code 47066 SUB INP/OBS CARE 3/50MIN Diagnoses Back pain M54.50; G89.29 Back pain laterality: bilateral Back pain location: low back pain Chronicity: chronic Sciatica presence: without sciatica Atrial fibrillation I48.91 Hypertension I10 Sleep apnea G47.30 (1) Back pain Back pain laterality: bilateral Back pain location: low back pain Chronicity: chronic Sciatica presence: without sciatica Qualified Code(s): M54.50 - Low back pain, unspecified; G89.29 - Other chronic pain
[2024-02-01 07:34] LABS: Hematocrit (blood only) 42.5 % (42.0-52.0); Hemoglobin 14.2 g/dl (14.0-18.0); Mean Corpuscular Hemoglobin 30.1 pg (25.0-34.0); Mean Corpuscular Hgb Conc 33.4 g/dL (32.0-36.0); Mean Corpuscular Volume 90.2 fL (80.0-100.0); Platelet Count 180 K/uL (130-400); RDW Coefficient of Variation 14.1 % (11.5-14.5); RDW Standard Deviation 46.2 fL (36.4-46.3); Red Blood Count 4.71 M/uL (4.70-6.10); White Blood Count 8.47 K/ul (4.8-10.8)
[2024-02-01 07:41] LABS: BUN Creatinine Ratio 22.1 (10-20); Calcium 8.7 mg/dl (8.6-10.3); Magnesium 2.2 mg/dl (1.7-2.4); Potassium 3.9 mmol/L (3.5-5.1)
--- NOTE | 2024-02-01 08:29 | Electrocardiogram Report ---
Test Reason : Blood Pressure : */* mmHG Vent. 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
[2024-02-01] MEDS: APIXABAN 5 MG TABLET PO SCH (08:41)
[2024-02-01] MEDS: FUROSEMIDE 20 MG TAB PO SCH (08:41)
[2024-02-01] MEDS: ACETAMINOPHEN 500 MG TAB PO SCH (08:41)
[2024-02-01] MEDS: hydroCHLOROthiazide 25 MG TAB PO SCH (08:42)
[2024-02-01] MEDS: predniSONE 20 MG TAB PO SCH (08:42)
[2024-02-01] MEDS: CYCLOBENZAPRINE HCL 5 MG TAB PO SCH (08:42)
[2024-02-01] MEDS: VALSARTAN 80 MG TAB PO SCH (08:43)
--- NOTE | 2024-02-01 10:58 | Orthopedic Consultation ---
Date of Service February 01, 2024 History of Present Illness Reason for Consultation: Low back pain. Requesting Physician: . Attending Physician: Cruz Hussein MD 73-year-old gentleman with history of atrial fibrillation, currently on Eliquis, who presents the emergency department with chief complaint of acute on chronic lower back pain. Patient states that he has had chronic pain in his lower back since the early , he states he had surgery on his L4 disc in 1991 at [facility]. Patient states he follows with pain management and had a steroid injection done on 01/15/2024. Patient states this seems to be improving his chronic pain up until today when he developed some worsening lower back pain mostly off to the right side today. Patient has motor and sensory function intact distally in the bilateral lower extremities, denies any recent fever. On arrival here to the ED otherwise the patient is hemodynamically stable, he appe ars to be in no acute distress. Patient reports injections improves helpful, on he had nearly gone for the groceries specific reason his symptoms became rather severe pain in the right lumbosacral spine region. Review of pain management procedure note reveals that the patient received trigger point injections in the right gluteal region on January 14. This morning on November 01, he reports that his symptoms are improved with the change in medications, he denies any specific lower extremity symptomatology. Exam reveals him indicate pain right lumbosacral region. No findings to suggest reaction to the prior injections. He has intact strength in lower extremities and negative straight leg raise. MR Lumbar Spine Without and With Intravenous Contrast January 31, 2024 CLINICAL HISTORY: Back pain, recent injection, eval for hematoma. TECHNIQUE: Magnetic resonance images of the lumbar spine without and with intravenous contrast in multiple planes. CONTRAST: Patient received 10.5 ml gadavist of IV contrast COMPARISON: 08/24/2023. FINDINGS: Vertebrae: Maintenance of height of the vertebral bodies. No subluxation. Redemonstrated marrow edema with enhancement in the at the inferior aspect of the L1 vertebral body. Reactive edema and enhancement centered at the L2 and L3 vertebral body. No evidence for fracture. Redemonstrated left L4 laminectomy defect. Spinal cord: Conus medullaris is T12-L1 and is unremarkable. Cauda equina is unremarkable. No intraspinal mass or collection. No abnormal enhancement of the spinal cord or the canal contents.Disk spaces/spinal canal/neural foramina: Unchanged multi-level disc and facet degenerative changes greatest degree stenosis between L1-2 and L4-5. Neural foraminal stenosis at L5-S1 without significant central canal stenosis. Soft tissues: No paraspinal collection. IMPRESSION: No intraspinal hematoma or collection. No abnormal enhancement to suggest epidural abscess. Redemonstrated extensive multilevel degenerative changes throughout the lumbar spine. MRI images lumbar spine from [facility] January 31, 2024, this is my separate interpretation, this reveals the patient to have degenerative changes throughout the lumbar spine and evidence of prior compressive surgery at L4-5 2020 degrees of dextroscoliosis when measuring on coronal labor relations or personnel negotiator views, multilevel disc changes present, there is a left I would consider at least moderate to moderate severe stenosis at L2-3 and moderate canal narrowing at L1-2. Impression: Right lumbosacral pain is the main complaint 1 day out from aggravation with some improvement this morning. Multilevel degenerative changes throughout the lumbar spine with stenosis present at the L1-2 and L2-3 levels. Plan: Today I reviewed the nature of the findings on the MRI with the patient noting to him that if the trigger point injections were helpful with the other steroids given, I think structures causing his symptoms may be a combination of stenosis in the upper lumbar spine, facet changes also. Patient relates he has a follow-up appointment, and recommended he follow-up with pain management and discussed with them possible injections into address his symptoms from any one of the lower lumbar levels relative to degenerative changes, but he does have stenosis of the right respond to some epidural injections. Asked the patient to follow-up with me after the scan limited pain management's efforts for additional review and discussion. Recommend mobilization and appropriate pain medications/muscle relaxers for hospital stay until discharge. Allergies Allergy/AdvReac Type Severity Reaction Status Date / Time No Known Allergies Allergy Verified 01/21/24 09:15 Home Medications Medication Instructions Recorded Confirmed Type cholecalciferol (vitamin D3) 50 50 mcg PO QAM 06/27/21 01/31/24 History mcg (2,000 unit) capsule jthsjbglowio-oqpxegn-sohwh acid 1 tab PO QAM 06/27/21 01/31/24 History 400 mcg-lutein 250 mcg chewable tablet (Centrum Silver) sildenafil 100 mg tablet 100 mg PO DAILY PRN impotence 06/27/21 01/31/24 History clobetasol 0.05 % scalp solution 1 applic topical Q7D PRN psoriasis 09/14/21 01/31/24 History clobetasol 0.05 % shampoo (Clobex) 1 applic topical QAM PRN psoriasis 09/14/21 01/31/24 History wheat dextrin 3 gram/3.5 gram oral 1 packet PO QAM 09/14/21 01/31/24 History powder packet (Benefiber Clear Sugar Free(dextrin)) valsartan 160 1 tab PO DAILY 02/03/22 01/21/24 History mg-hydrochlorothiazide 25 mg tablet vitamin B complex 1 tab PO DAILY 02/03/22 01/31/24 History hydrocodone 7.5 mg-acetaminophen 1 tab PO Q6H PRN Pain 03/17/23 01/31/24 History 325 mg tablet furosemide 20 mg tablet (Lasix) 20 mg PO DAILY 07/07/23 01/31/24 History apixaban 5 mg tablet (Eliquis) 5 mg PO BID #180 tabs 07/15/23 01/31/24 Rx amoxicillin 500 mg tablet 2,000 mg (4 x 500 mg) PO ONCE #4 08/26/23 01/31/24 Rx tabs potassium chloride 10 mEq 10 meq PO DAILY 10/21/23 01/31/24 History capsule,extended release rosuvastatin 5 mg tablet 5 mg PO DAILY 10/21/23 01/31/24 History diltiazem HCl 120 mg capsule,24 120 mg PO DAILY #90 caps 01/14/24 01/31/24 Rx hr,extended release methylprednisolone 4 mg tablets in 4 mg PO .COMPLEX #21 ea 01/21/24 01/21/24 Rx a dose pack Past Med/Surg History Problem List Back pain (Acute) Scrotal bleeding (Acute) Acute exacerbation of chronic low back pain Cardiac amyloidosis Hypogammaglobulinemia Chronic gluteal pain Right side Chronic hip pain after total replacement of hip joint Encounter for pain management planning History of lumbar surgery Gluteal tendonitis of left buttock Bilateral sacroiliitis Iliotibial band tendinitis of left side Lumbar radicular pain Osteoarthritis of left knee Osteoporosis Greater trochanteric bursitis of left hip Vitamin D deficiency (Acute) Thyroid nodule (Acute) Hyperthyroidism Mitral regurgitation Left ventricular hypertrophy Atrial fibrillation Hypertension Sleep apnea CPAP Congestive heart failure (Acute) Duodenal ulcer Shoulder pain, right Status post left hip replacement (~10/2021) Periprosthetic hip fracture Medical History Erosive gastropathy 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 "Mild, thoracic aorta"- follows only with PCP History of hemangioma Liver, stable x years- follows with PCP- no further imaging follow up needed due to stability per patient Hx of prostatic malignancy 11/2012 - S/p XRT No current issues Hx of psoriasis Surgical History Nausea and vomiting after administration of anesthetic agent Remote hx>WITH BACK SURGERY Hx of colonoscopy History of total hip arthroplasty RT>PT STATED WAS DONE UNDER GENERAL>ANESTHESIA COULD NOT DO SPINAL "TRIED 4 OR 5 TIMES" Left hip replaced 11/16/21 and then needed repair on 12/07/21 Hx of knee surgery Meniscus sx Hx of umbilical hernia repair Hx of carpal tunnel repair RT/LEFT Hx of total shoulder replacement RT History of back surgery LUMBAR DISCECTOMY "NOT A FUSION" Hx of shoulder surgery RT/LEFT Family History Other No family history of adverse response to anesthesia Social History Smoking Status: Never smoker Tobacco Type: Cigars Second Hand Exposure: No; Do You Dip or Chew Tobacco: No; Hx Alcohol Use: No Hx Substance Use: No Preferred Language: [place] Communication Ability: Effective Gauntlet Pairer Required: No Beliefs That Will Affect Care: None marital status: Current Living Situation: Spouse Current Living Situation Comment: Lives with at home Feels Safe at Home: Yes Safety Concerns: Feels Safe At This Time Assistive Devices: Cane and CPAP Review of Systems All systems reviewed & are unremarkable except as noted in HPI & below. Physical Exam . Results & Data Results & Data Laboratory Results . Diagnostic Findings . PG Care Time/CCT Total # of Minutes Spent Total Time Spent with Patient: Total time spent is greater than 50% in coordination of care (as documented) at patient's floor/unit and/or counseling patient: Coding Level of Care Code 14623 IN/OBS CONSULT LVL 3,45M
[2024-02-01] MEDS: dilTIAZem HCL 120 MG CAPCR PO SCH (19:55)
[2024-02-01] MEDS: ROSUVASTATIN CALCIUM 5 MG TAB PO SCH (19:56)
[2024-02-02 07:13] VITALS: BP 103/65; PULSE 58; RESP 18; TEMP 97.7; O2SAT 95
[2024-02-02] MEDS: POLYETHYLENE (MIRALAX) 17 GM PACK PO SCH (08:05)
--- NOTE | 2024-02-02 09:15 | Pain Management Consultation ---
Date of Consultation February 02, 2024 Assessment & Plan (1) Acute exacerbation of chronic low back pain: (2) History of lumbar surgery: (3) Lumbar facet joint syndrome: (4) Lumbar spinal stenosis: Plan 1. Patient states that his pain has improved since admission. We discussed potential for outpatient physical therapy to further diminish pain but he defers at this time stating he knows which exercises to do and will utilize massage and home exercise regimen for now to minimize pain. May continue current regimen of Flexeril 5 mg p.o. twice daily but would moved to as needed at discharge as well as weaning of oral prednisone. 2. Recommend patient follow-up with our office early February 2024 or sooner for further evaluation of his pain to determine next steps which may consist of epidural steroid injections versus lumbar medial branch blocks. 3. Patient was satisfied with the plan to follow-up after the holidays. 4. Thank you for this consultation please call with any questions otherwise pain management will sign off. History of Present Illness Attending Physician: Cruz Hussein MD History of Present Illness 73-year-old male with acute exacerbation of longstanding ( ) right sided axial low back pain at the lumbosacral junction. He reports no inciting event but sharp pressure type pain over his right lumbosacral junction and buttock range between 3-6/10. He reports some improvement in his pain since admission to the hospital. He has been utilizing Flexeril 5 mg p.o. twice daily, prednisone, 1 dose of 4 mg of IV morphine. He reports improvement in his ability to ambulate since he arrived. He states he has chronic left-sided 3+ to 4 out of 5 quadricep strength. He denies distal radicular symptoms or radiation to his groin. He denies bowel or bladder incontinence change in motor weakness foot drop fever chills night sweats. He reports previous trigger point injections have been beneficial for diminishing his pain. Pain Assessment Full Body Front + Back: 2 1. [facility] Combined Pain Scale: 3-Mild - Interferes with pleasures of life. Stops some activities Pain scale - at its best (0-10): 3 Pain scale - at its worst (0-10): 6 Allergies Allergy/AdvReac Type Severity Reaction Status Date / Time No Known Allergies Allergy Verified 01/21/24 09:15 Home Medications Medication Instructions Recorded Confirmed Type cholecalciferol (vitamin D3) 50 50 mcg PO QAM 06/27/21 01/31/24 History mcg (2,000 unit) capsule dpidrrcrpojd-kaaccxg-itzun acid 1 tab PO QAM 06/27/21 01/31/24 History 400 mcg-lutein 250 mcg chewable tablet (Centrum Silver) sildenafil 100 mg tablet 100 mg PO DAILY PRN impotence 06/27/21 01/31/24 History clobetasol 0.05 % scalp solution 1 applic topical Q7D PRN psoriasis 09/14/21 01/31/24 History clobetasol 0.05 % shampoo (Clobex) 1 applic topical QAM PRN psoriasis 09/14/21 01/31/24 History wheat dextrin 3 gram/3.5 gram oral 1 packet PO QAM 09/14/21 01/31/24 History powder packet (Benefiber Clear Sugar Free(dextrin)) valsartan 160 1 tab PO DAILY 02/03/22 02/01/24 History mg-hydrochlorothiazide 25 mg tablet vitamin B complex 1 tab PO DAILY 02/03/22 01/31/24 History hydrocodone 7.5 mg-acetaminophen 1 tab PO Q6H PRN Pain 03/17/23 01/31/24 History 325 mg tablet furosemide 20 mg tablet (Lasix) 20 mg PO DAILY 07/07/23 01/31/24 History apixaban 5 mg tablet (Eliquis) 5 mg PO BID #180 tabs 07/15/23 01/31/24 Rx amoxicillin 500 mg tablet 2,000 mg (4 x 500 mg) PO ONCE #4 08/26/23 01/31/24 Rx tabs potassium chloride 10 mEq 10 meq PO DAILY 10/21/23 01/31/24 History capsule,extended release rosuvastatin 5 mg tablet 5 mg PO DAILY 10/21/23 01/31/24 History diltiazem HCl 120 mg capsule,24 120 mg PO DAILY #90 caps 01/14/24 01/31/24 Rx hr,extended release Pain History Pain Intensity Pain scale - at its best (0-10): 3 Pain scale - at its worst (0-10): 6 Patient History Medical History (Updated 02/02/24 @ 09:35 by Isabelle Cazares DO) Lumbar spinal stenosis Lumbar facet joint syndrome Erosive gastropathy 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 "Mild, thoracic aorta"- follows only with PCP History of hemangioma Liver, stable x years- follows with PCP- no further imaging follow up needed due to stability per patient Hx of prostatic malignancy 11/2012 - S/p XRT No current issues Hx of psoriasis Surgical History Nausea and vomiting after administration of anesthetic agent Remote hx>WITH BACK SURGERY Hx of colonoscopy History of total hip arthroplasty RT>PT STATED WAS DONE UNDER GENERAL>ANESTHESIA COULD NOT DO SPINAL "TRIED 4 OR 5 TIMES" Left hip replaced 11/16/21 and then needed repair on 12/07/21 Hx of knee surgery Meniscus sx Hx of umbilical hernia repair Hx of carpal tunnel repair RT/LEFT Hx of total shoulder replacement RT History of back surgery LUMBAR DISCECTOMY "NOT A FUSION" Hx of shoulder surgery RT/LEFT Family History Other No family history of adverse response to anesthesia Social History Smoking Status: Never smoker Tobacco Type: Cigars Second Hand Exposure: No; Do You Dip or Chew Tobacco: No; Hx Alcohol Use: No Hx Substance Use: No Preferred Language: Croatian Communication Ability: Effective Program Support Clerk Required: No Beliefs That Will Affect Care: None marital status: Current Living Situation: Spouse Current Living Situation Comment: Lives with at home Feels Safe at Home: Yes Safety Concerns: Feels Safe At This Time Assistive Devices: Cane and CPAP Physical Exam 2 Physical Exam: Constitutional: Well-developed, well-nourished, healthy-appearing, normal weight Psych: Awake, alert, and oriented 3 with normal affect and mood. Recent memory appears grossly intact Eyes: Pupils are equally round and reactive to light with normal size pupils, eyelids appear normal Ear, nose, mouth, and throat: Moist nasal and oral membranes, lips and tongues appear normal, no external ear abnormalities are noted Neck: The trachea is midline without deviation Respiratory: Normal respiratory effort without distress, no audible wheezes or rhonchi CV: Normal S1 and S2 Chest: Deferred Musculoskeletal: Head is normocephalic and atraumatic, gait not observed but able to move to a seated position without much difficulty Cervical: Lordotic curve: Normal Range of motion is normal with extension, flexion, side-bending, rotation Strength: Strength is grossly equal bilaterally with 5 out of 5 strength in all planes Lumbar: Lordotic curve: loss of typical lordosis Range of motion is decreased with extension, flexion, side-bending, rotation Tenderness: moderately tender over the right axial midline L4-S1, nontender over the left Facet provocation:negative left, positive right Straight leg raise: Negative bilaterally Step-off injuries: None Strength: Strength is equal bilaterally with 5 out of 5 strength in all planes with the exception of the left quadriceps which he states is chronically weak rated at 3+ out of 5 Sensation of lower extremities: Intact bilaterally Deep tendon reflexes: Rated at 1+ in bilateral L4 and S1 Myofascial spasm: Mild appreciable spasm. 1 remaining discrete trigger point noted Greater trochanters: Nontender bilaterally Sacroiliac joints: Nontender bilaterally Pathologic reflexes noted: None Skin: No rashes, lesions, ulcers, or induration noted Neuro: No nystagmus noted, the tongue is midline, the patient is able to rotate their head bilaterally : Deferred Results (Pain Clinic) Diagnostic Review MRI: enhanced, non enhanced, reports reviewed and findings discussed with patient MRI Findings: 01/31/24 Exam(s): MRI L SPINE W/WO Contrast IV Amt: 10.5 ml gadavist EXAM: MR Lumbar Spine Without and With Intravenous Contrast CLINICAL HISTORY: Back pain, recent injection, eval for hematoma. TECHNIQUE: Magnetic resonance images of the lumbar spine without and with intravenous contrast in multiple planes. CONTRAST: Patient received 10.5 ml gadavist of IV contrast COMPARISON: 08/24/2023. FINDINGS: Vertebrae: Maintenance of height of the vertebral bodies. No subluxation. Redemonstrated marrow edema with enhancement in the at the inferior aspect of the L1 vertebral body. Reactive edema and enhancement centered at the L2 and L3 vertebral body. No evidence for fracture. Redemonstrated left L4 laminectomy defect. Spinal cord: Conus medullaris is T12-L1 and is unremarkable. Cauda equina is unremarkable. No intraspinal mass or collection. No abnormal enhancement of the spinal cord or the canal contents. Disk spaces/spinal canal/neural foramina: Unchanged multi-level disc and facet degenerative changes greatest degree stenosis between L1-2 and L4-5. Neural foraminal stenosis at L5-S1 without significant central canal stenosis. Soft tissues: No paraspinal collection. IMPRESSION: No intraspinal hematoma or collection. No abnormal enhancement to suggest epidural abscess. Redemonstrated extensive multilevel degenerative changes throughout the lumbar spine.
--- NOTE | 2024-02-02 11:27 | Discharge Summary ---
Discharge Summary Date of Service February 02, 2024 Principal Dx & Hospital Course #1 = Principal Diagnosis (1) Back pain: 73yo male with history of chronic back pain presenting with acute worsening of pain. No trauma, fevers or chills, no bowel or bladder involvement, no neurological symptoms. MRI obtained due to recent injection - no hematoma or collection -was seen by ortho spine recommended pain management consult -Multimodal pain management to include hydrocodone7.5/acetaminophen -Prednisone 40mg po daily x 3 additional days- continue home prn flexeril -Bowel regimen with Miralax and Senna PRN -Heat - -Ortho-Spine evaluation appreciated -Pain Management consult recommended outpt follow up (2) Atrial fibrillation: Chronic. Patient follows with Cardiology. 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 Blood pressure stable -Continue Diltiazem -Continue Valsartan-HCTZ -Monitor (4) Sleep apnea: Chronic -CPAP qHS Admission HPI Per Admitting Provider Jnog Real is a 73yo male with history of cardiac amyloidosis, HTN, atrial fibrillation on Apixaban anticoagulation presenting with acute on chronic back pain. Patient follows with Pain Management team. He had a trigger point injection performed 2 weeks ago with temporary improvement in his back pain. Today he developed severe bandlike low back pain, difficulty standing up, bending over or ambulating. He took a Hydrocodone-Acetaminophen at home with no relief. He denies fall or trauma, no fever/chills/sweats. He has no bowel or bladder involvement. No numbness/tingling or weakness. He does have some chronic discomfort, instability and partial numbness in his LLE since having a hip arthroplasty in 2021 In the ER patient afebrile, HD stable ER Course: Solumedrol 125mg IV Morphine Discharge Exam awake and alert, pain is improving, no radicular symptoms Discharge Plan Discharge Items Patient Disposition: Home - Self-Care Reason For Visit: SEVERE BACK PAIN Discharge Diagnosis: severe low back pain -resolved Activity: Resume your previous activity Non-emergency contact: Primary Care Provider Call non-emergency contact if: your symptoms worsen Follow-up/Referrals: Gustavo Clemons PA-C [Physician Document Controller] - Brigette North PA-C [Primary Care Provider] - Diet: Regular Addtl Attending Provider Instructions: please rest and recover How can you care for yourself at home? Sit or lie in positions that are most comfortable and reduce your pain. Try one of these positions when you lie down: Lie on your back with your knees bent and supported by pillows. Lie on the floor with your legs on the seat of a sofa or chair. Lie on your side with your knees and hips bent and a pillow between your legs. Lie on your stomach if it does not make pain worse. Do not sit up in bed, and avoid soft couches and twisted positions. Bedrest can help relieve pain at first, but it delays healing. Avoid bedrest after the first day of back pain.Change positions every 30 minutes. If you must sit for long periods of time, take breaks from sitting. Get up and walk around, or lie in a comfortable position.Try using a heating pad on a low or medium setting for 15 to 20 minutes every 2 or 3 hours. Try a warm shower in place of one session with the heating pad.You can also try an ice pack for 10 to 15 minutes every 2 to 3 hours. Put a thin cloth between the ice pack and your skin.Take pain medicines exactly as directed. Take short walks several times a day. You can start with 5 to 10 minutes, 3 or 4 times a day, and work up to longer walks. Walk on level surfaces and avoid hills and stairs until your back is better.Return to work and other activities as soon as you can. Continued rest without activity is usually not good for your back.To prevent future back pain, do exercises to stretch and strengthen your back and stomach. Learn how to use good posture, safe lifting techniques, and proper body mechanics. Addtl Industrial/Organizational Psychologist Provider Instructions: While you were in the hospital you were started on steroids and some muscle relaxants intermediate use of steroids can lead to side affects, so we are going to give you only 3 more days of these the muscle relaxants can be taken as needed for worsening pain, but do not drive or operate machinery while taking them please follow up with pain management Pending Studies at Discharge: No Stand-Alone Forms: [employer], Smoking Cessation Medications and DC Order Prescriptions: New cyclobenzaprine 5 mg Tablet 5 mg PO BID PRN (Reason: Back Pain) Qty: 10 0RF prednisone 20 mg tablet 40 mg PO DAILY 3 Days Qty: 6 0RF Continued hydrocodone-acetaminophen 7.5-325 mg tablet 1 tab PO Q6H PRN (Reason: Pain) amoxicillin 500 mg tablet 2,000 mg PO ONCE Qty: 4 3RF Rx Instructions: 4 tabs 1 hour prior to procedure cholecalciferol (vitamin D3) 50 mcg (2,000 unit) capsule 50 mcg PO QAM Centrum Silver 400-250 mcg tablet,chewable 1 tab PO QAM sildenafil 100 mg tablet 100 mg PO DAILY PRN (Reason: impotence) Rx Instructions: administer 30 minutes to 4 hours before activity Eliquis 5 mg tablet 5 mg PO BID Qty: 180 3RF diltiazem HCl 120 mg capsule,extended release 24 hr 120 mg PO DAILY Qty: 90 3RF rosuvastatin 5 mg tablet 5 mg PO DAILY potassium chloride 10 mEq capsule, extended release 10 meq PO DAILY clobetasol 0.05 % Solution 1 applic TOPICAL Q7D PRN (Reason: psoriasis) clobetasol [Clobex] 0.05 % Shampoo 1 applic TOPICAL QAM PRN (Reason: psoriasis) Benefiber Clear SF (dextrin) 3 gram/3.5 gram Powder In Packet 1 packet PO QAM Rx Instructions: mix into at least 4 oz water or juice before administering vitamin B complex Tablet 1 tab PO DAILY valsartan-hydrochlorothiazide 160-25 mg tablet 1 tab PO DAILY furosemide [Lasix] 20 mg Tablet 20 mg PO DAILY Discharge Orders: Discharge Order (Routine); Ordered 02/02/24 Ordered By: Cruz Hussein Admission Data Admit Date/Time: 02/01/24 12:12 Attending Provider: Cruz Hussein Admit Provider: Dorina Farooq Primary Care Provider: Brigette North. Other Providers: Gaurav Aragon; Wild Coombs; Shabbir Cintron; Karen Archer; John Fernández; Claude Fabian; Dorina Farooq; Gustavo Clemons Hospital Stay Data Consultations 01/31/24 22:12 Consult Orthopedic Spine Surgery Routine 01/31/24 22:18 ED Decision to Admit Stat 02/01/24 12:10 Consult Pain Management Routine Diagnostic Imagining Performed 01/31/24 18:36 MRI Lumbar Spine [MR lumbar spine wo/w con] Stat Pending Results Patient Have Any Pending Studies at Discharge: No Discharge Instructions Given to Patient (Per Discharging Provider) please rest and recover How can you care for yourself at home? Sit or lie in positions that are most comfortable and reduce your pain. Try one of these positions when you lie down: Lie on your back with your knees bent and supported by pillows. Lie on the floor with your legs on the seat of a sofa or chair. Lie on your side with your knees and hips bent and a pillow between your legs. Lie on your stomach if it does not make pain worse. Do not sit up in bed, and avoid soft couches and twisted positions. Bedrest can help relieve pain at first, but it delays healing. Avoid bedrest after the first day of back pain.Change positions every 30 minutes. If you must sit for long periods of time, take breaks from sitting. Get up and walk around, or lie in a comfortable position.Try using a heating pad on a low or medium setting for 15 to 20 minutes every 2 or 3 hours. Try a warm shower in place of one session with the heating pad.You can also try an ice pack for 10 to 15 minutes every 2 to 3 hours. Put a thin cloth between the ice pack and your skin.Take pain medicines exactly as directed. Take short walks several times a day. You can start with 5 to 10 minutes, 3 or 4 times a day, and work up to longer walks. Walk on level surfaces and avoid hills and stairs until your back is better.Return to work and other activities as soon as you can. Continued rest without activity is usually not good for your back.To prevent future back pain, do exercises to stretch and strengthen your back and stomach. Learn how to use good posture, safe lifting techniques, and proper body mechanics. Total Time Total Time Spent Total Time Spent (In Minutes): greater than 30 minutes required to complete process Coding Level of Care Code 95315 INP/OBS DISCH >30 MIN Diagnoses Back pain M54.50; G89.29 Back pain laterality: bilateral Back pain location: low back pain Chronicity: chronic Sciatica presence: without sciatica Atrial fibrillation I48.91 Hypertension I10 Sleep apnea G47.30
[2024-02-02] MEDS: oxyCODONE HCL IR 5 MG TAB (IMMEDIATE RELEASE) PO PRN (12:30)
== END 2024-02-02 13:29 | disposition home or self-care (01) | DRG 552 ==
LOC: EDINP 18:16 → ED 18:16 → SUATTDRO 23:04 → 3E 02-01 09:08